=== PATIENT | male | born 1935 | race Caucasian/White ===

== ENCOUNTER 2021-05-28 10:57 | Emergency (ER) | payer MEDICARE, MEDICAID, SELFPAY ==
[2021-05-28 11:12] VITALS: BP 163/55; PULSE 55; RESP 16; TEMP 37.1; O2SAT 98; BMI 25.8
--- NOTE | 2021-05-28 11:25 | ED_ITS ---
HPI - Male Genitourinary General Chief complaint: Urogenital-Male Stated complaint: urinary issue Time Seen by Provider: 05/28/21 11:25 Source: patient Mode of arrival: ambulatory Limitations: no limitations History of Present Illness HPI Narrative: Patient history of enlarged prostate and history of any tension few years ago comes here for decreased urine output, dribbling of urine for last 3 -4 days. No fever no chills no vomiting no abdominal pain no blood in the urine. Bladder scan when he arrived showed 741 cc of urine in bladder Related Data Previous Rx's Medication Instructions Recorded tamsulosin 0.4 mg capsule (Flomax) 0.4 mg PO BEDTIME #30 cap 05/28/21 Allergies Allergy/AdvReac Type Severity Reaction Status Date / Time No Known Allergies Allergy Verified 05/28/21 11:17 Review of Systems Review of Systems: Yes all other systems are reviewed and are negative [facility] Past Medical History Medical History Hypertension Social History Social History Advance Directives: No Advance Directives Information Provided: No Physical Exam Vital Signs: Vital Signs: Last Vital Signs Temp 98.7 F 05/28/21 11:32 Pulse 53 05/28/21 11:32 Resp 15 05/28/21 11:32 BP 160/54 H 05/28/21 11:32 Pulse Ox 96 05/28/21 11:32 Body Mass Index 25.8 Appearance: Alert. Oriented X3. No acute distress. ENT: Pharynx normal. Oral Mucosa moist Neck: Normal inspection. Neck supple. CVS: Normal heart rate and rhythm. Pulses normal. Respiratory: No respiratory distress. Equal air entry bilateral, no wheezing/rales/rhonchi Abdomen: Soft and nontender. Bowel sounds are present, bladder distended no CVA tenderness Skin: Skin warm and dry. Normal skin color. Normal skin turgor. Extremities: Bilateral AKA Neuro: Oriented X 3. No motor deficit. MDM - Male Genitourinary MDM Narrative Medical decision making narrative: Patient's T of BPH retaining urine bladder scan showed 741 cc of urine Downs catheter was placed UA negative for UTI will discharge patient home with indwelling Downs catheter Lab Data Attestation: I reviewed the patient's lab results. Labs: Lab Results 05/28/21 Range/Units 12:01 Urine Color YELLOW Urine Appearance CLEAR Urine pH 6.0 (5.0-8.0) Ur Specific [place] 1.020 (1.005-1.025) Urine Protein NEG (NEG-TRACE) MG/DL Urine Glucose (UA) NEG (NEG) MG/DL Urine Ketones NEG (NEG) MG/DL Urine Blood NEG (NEG) Urine Nitrite NEG (NEG) Ur Leukocyte Esterase NEG (NEG) Discharge Plan Discharge Clinical Impression: Acute retention of urine Patient Disposition: Home, Self-Care Instructions: Downs Catheter Placement and Care (ED) Additional Instructions: Care of Downs catheter. Follow-up with urologist Meds as advised for enlarged prostate and Prescriptions: New tamsulosin [Flomax] 0.4 mg capsule 0.4 mg PO BEDTIME Qty: 30 RF: 0 Referrals: Allan Archer MD [Physician] - 1 week Print Language: Slovenian
[2021-05-28 11:32] VITALS: BP 160/54; PULSE 53; RESP 15; TEMP 37.1; O2SAT 96
[2021-05-28 12:14] LABS: Glucose Urine UA NEG (NEG); Leukocyte Esterase Urine NEG (NEG); Nitrite Urine NEG (NEG); Urine Blood NEG (NEG); Urine Ketones NEG (NEG); Urine Protein NEG (NEG-TRACE)
[2021-05-28 12:15] LABS: Appearance Urine CLEAR; Color Urine YELLOW
[2021-05-28] MEDS: Tamsulosin HCL 0.4 MG CAPSULE PO (13:26)
== END 2021-05-28 14:19 | disposition home or self-care (01) ==
PROVIDERS: Emergency Provider Internal Medicine
DX: R33.9 Retention of urine, unspecified (principal); I10 Essential (primary) hypertension
CPT/HCPCS: 51702; 51798; 81003; 99284

== ENCOUNTER → 2021-06-15 09:33 | Outpatient (BNVA) | payer MEDICARE, SELFPAY | PROVIDERS: Visit Provider Urology | DX: Z46.6 Encounter for fitting and adjustment of urinary device (principal); N32.0 Bladder-neck obstruction; R33.9 Retention of urine, unspecified | CPT/HCPCS: 51700; 51701; 51702; 99202 ==

== ENCOUNTER → 2021-07-22 09:41 | Outpatient (BNVA) | payer MEDICARE, SELFPAY | PROVIDERS: Visit Provider Urology | DX: N31.9 Neuromuscular dysfunction of bladder, unspecified (principal) | CPT/HCPCS: 51701; 52000; 99212 ==

== ENCOUNTER → 2021-09-19 08:08 | Day surgery (SDC) | payer MEDICARE, MEDICAID, SELFPAY ==
--- NOTE | 2021-09-16 12:10 | P.CONAN_ITS ---
Documented by User: Christy Ramirez NP 09/16/21 12:12 HPI - Anesthesia Eval Consult details Narrative: 86yo M for Insertion Suprapubic Tube s/p bilat BKA PMFSH Active Problems Active Problems: All Active Problems (Updated 09/13/21 @ 11:10 by Rosina Castillo RN) Urinary retention with incomplete bladder emptying (Acute) Bladder outlet obstruction (Acute) Neurogenic urinary bladder disorder (Acute) Past Medical History Medical History (Updated 09/13/21 @ 11:10 by Rosina Castillo RN) BPH (benign prostatic hyperplasia) COVID-19 vaccine series completed Depression GERD (gastroesophageal reflux disease) Hypertension Peripheral vascular disease Urinary retention Surgical History Surgical History (Updated 09/13/21 @ 11:04 by Rosina Castillo RN) H/O colonoscopy History of below-knee amputation of both lower extremities History of bladder surgery Social History Social History Housing Other:: 2 family home-son & DIL 2nd floor Are you a primary rn palliative care to a significant other at home: No Do you presently have visiting nurse or other home services: No Patient Tobacco Use Status: Never used Tobacco Substance Use Type Other:: advised to hold pre-op Substance Use Frequency: Occasionally Have you been hit, kicked, punched, or otherwise hurt by someone within the past year? If so, by whom?: No Are you DNR?: No Advance Directives Information Provided: Yes (informational brochure mailed) Advance Directives on File: No Recently lost weight without trying: No Eating poorly because of decreased appetite: No Nutrition Risks: Surgical patient >75years Poor oral hygiene: No Meds Allergies Allergy/AdvReac Type Severity Reaction Status Date / Time No Known Allergies Allergy Verified 07/22/21 10:12 Home Medications Medication Instructions Recorded Confirmed Last Taken Type amlodipine 5 mg tablet 5 mg PO QPM 09/13/21 09/13/21 Unknown History atorvastatin 40 mg tablet 40 mg PO QPM 09/13/21 09/13/21 Unknown History dexlansoprazole 60 mg 60 mg PO QPM 09/13/21 09/13/21 Unknown History capsule,biphase delayed release (Dexilant) finasteride 5 mg tablet 5 mg PO QPM 09/13/21 09/13/21 Unknown History gabapentin 100 mg tablet 100 mg PO TID 09/13/21 09/13/21 Unknown History tamsulosin 0.4 mg capsule (Flomax) 0.4 mg PO QPM 09/13/21 09/13/21 Unknown History Exam Exam Date and Time: September 16, 2021 1210 Height,Weight and Vital Signs: Weight 77.111 kg Assessment and Plan Assessment Anesthesia Assessment: Chart Reviewed Documented by User: Bob Batista 09/19/21 08:52 [facility] Past Medical History Medical History (Updated 09/13/21 @ 11:10 by Rosina Castillo RN) BPH (benign prostatic hyperplasia) COVID-19 vaccine series completed Depression GERD (gastroesophageal reflux disease) Hypertension Peripheral vascular disease Urinary retention Functional capacity: wheelchair bound Family History Family history of problems with anesthesia: No Surgical History Surgical History (Updated 09/13/21 @ 11:04 by Rosina Castillo RN) H/O colonoscopy History of below-knee amputation of both lower extremities History of bladder surgery History of Problems with Anesthesia: No Social History Social History Housing Other:: 2 family home-son & DIL 2nd floor Are you a primary rn palliative care to a significant other at home: No Do you presently have visiting nurse or other home services: No Patient Tobacco Use Status: Never used Tobacco Substance Use Type Other:: advised to hold pre-op Substance Use Frequency: Occasionally Have you been hit, kicked, punched, or otherwise hurt by someone within the past year? If so, by whom?: No Are you DNR?: No Advance Directives Information Provided: Yes (informational brochure mailed) Advance Directives on File: No Recently lost weight without trying: No Eating poorly because of decreased appetite: No Nutrition Risks: Surgical patient >75years Poor oral hygiene: No Meds Allergies Allergy/AdvReac Type Severity Reaction Status Date / Time No Known Allergies Allergy Verified 07/22/21 10:12 Home Medications Medication Instructions Recorded Confirmed Last Taken Type amlodipine 5 mg tablet 5 mg PO QPM 09/13/21 09/13/21 Unknown History atorvastatin 40 mg tablet 40 mg PO QPM 09/13/21 09/13/21 Unknown History dexlansoprazole 60 mg 60 mg PO QPM 09/13/21 09/13/21 Unknown History capsule,biphase delayed release (Dexilant) finasteride 5 mg tablet 5 mg PO QPM 09/13/21 09/13/21 Unknown History gabapentin 100 mg tablet 100 mg PO TID 09/13/21 09/13/21 Unknown History tamsulosin 0.4 mg capsule (Flomax) 0.4 mg PO QPM 09/13/21 09/13/21 Unknown History Exam Airway Mallampati Class: II TM Dist: >3cm Neck ROM: Full Denture: Upper and Lower Loose/Missing/Broken Teeth: Yes Heart: rrr Lungs: bl breath sounds Assessment and Plan Assessment Anesthesia Assessment: Anesthesia Plan Discussed Final Anesthetic Review Family History of Problems with Anesthesia: No History of Problems with Anesthesia: No NPO: Yes ASA Class: III Final Preanesthetic Review: Consent Obtained/Reviewed Patient Risk: Intermediate Procedure Risk: Intermediate Anesthetic Plan Anesthetic Plan: GA Disposition: Standard PACU
--- NOTE | 2021-09-19 | ECG_ITS ---
Test Reason : pre op Blood Pressure : / mmHG Vent. Rate : 067 BPM Atrial Rate : 067 BPM P-R Int : 154 ms QRS Dur : 080 ms QT Int : 426 ms P-R-T Axes : 027 037 073 degrees QTc Int : 450 ms Normal sinus rhythm Nonspecific T wave abnormality Abnormal ECG No previous ECGs available Referred By: Christy Ramirez Electronically Signed By:MIRTHA ROSARIO MD
[2021-09-19 08:53] VITALS: BP 156/52; PULSE 68; RESP 15; TEMP 36.4; O2SAT 97; BMI 39.0
[2021-09-19 09:01] LABS: Hematocrit 42.8 % (42.0-52.0); Hemoglobin 14.3 g/dl (14.0-18.0); Mean Corpuscular HGB Conc 33.4 g/dl (31.0-36.0); Mean Corpuscular Hemoglobin 31.8 pg (27.0-33.0); Mean Corpuscular Volume 95.1 fL (80.0-98.0); Mean Platelet Volume 8.7 fL (9.4-12.4); Platelet Count 278 X10*3/uL (160-400); Red Cell Distribution Width 13.7 % (11.0-16.0); White Blood Count 10.5 X10*3/uL (4.8-10.8)
[2021-09-19 09:16] LABS: Anion Gap 12 (12-20); Blood Urea Nitrogen 17 mg/dL (9-16); Calcium 9.3 mg/dL (8.4-10.2); Carbon Dioxide 25 mmol/L (22-29); Chloride 107 mmol/L (96-108); Estimated Glomerular Filt Rate 57; Glucose Fasting 92 mg/dL (60-99); Sodium 140 mmol/L (135-145)
--- NOTE | 2021-09-19 09:19 | MHC.SHP ---
Pre-Procedural Eval Section A Date of Service: 09/19/21 The patient is an INPATIENT: No The History & Physical has been completed within 30 days and I have reviewed it.: No Section B Chief Complaint: dysfunction of bladder Details of Present Illness: neurogenic bladder, recurring UTI. Plan for suprapubic tube placement Relevant Family History (Specify if Yes): No Relevant Social History: Other (specify) Present Medications: see Short Stay Collaborative assessment Medical History: Significant History History of Previous Operations: Relevant previous surgery/procedure and date(s) ( bladder diverticulum procedure at [facility] number of years ago) Allergies: Allergies Allergy/AdvReac Type Severity Reaction Status Date / Time No Known Allergies Allergy Verified 07/22/21 10:12 Review of Systems Sugical H&P ROS: Negative: Constitution, Cardiovascular, Respiratory, Neurological, Psychiatric, Hem-Onc, Allergic/Immunologic, Gastrointestinal, Genitourinary, Musculoskeletal, Integumentary, Endocrine and Eyes/Ears/Nose/Throat Exam Surgical H&P Exam: Normal: HEENT, Normal: Heart, Normal: Lungs, Normal: Extremities, Normal: Abdomen, Normal: Skin and Normal: Neurological Plan Diagnosis/Plan: Unchanged ( cystoscopy, suprapubic tube placement under anesthesia) I have reviewed the history and physical and performed a pertinent physical examination on my patient. No changes have occurred unless specified.
[2021-09-19 10:17] VITALS: BP 159/61; PULSE 63; RESP 14; TEMP 36.2; O2SAT 100
[2021-09-19 10:22] VITALS: BP 151/61; PULSE 62; RESP 16; O2SAT 100
--- NOTE | 2021-09-19 10:23 | W.PM.OPN ---
Operative Note Operative Note Date of Service: 09/19/21 Narrative: PreOperative Diagnosis:?neurogenic bladder Post Operative Diagnosis:?neurogenic bladder Procedure:? 1. Cystoscopy 2. Suprapubic tube placement Surgeon: Dr Allan Archer Anesthesia:?Sedation plus local Indications for procedure: wheelchair-bound due to bilateral BKA. Has had indwelling Devlin catheter. Prior procedure for diverticular bladder removal. Has been experiencing pain with spasm and from his penis. Purpose of Procedure: After informed consent was verified the patient was brought to the operating room and placed in a supine position.? Anesthesia was administered per protocol. The patient was placed in a modified dorsal lithotomy position and prepped and draped in a sterile fashion. A safety pause was performed confirming patient identity, procedure and antibiotics. A 22 Macedonian cystoscope was inserted per urethra. Bladder was examined in its entirety. No abnormalities seen. Air bubble was located at the dome of the bladder. A finder needle was inserted 2 fingerbreaths above the symphysis pubis on the abdomen into the bladder.? The needle was visualized in the bladder via cystoscopy. Local anesthetic was infiltrated subcutaneously around the needle introduction site. A small, 1cm horizontal incision was made.? A trocar introducer was advanced through the abdominal wall into the bladder under visualization. The obturator was removed and a 1 [id number] is to shift Fol Fr devlin catheter placed. 7cc was used to inflate the balloon. The external portion of the trocar was removed. Dressing was placed, the bladder was emptied, and a drainage bag was attached. The patient tolerated the procedure and was transferred in stable condition to the recovery area. Suprapubic tube will be changed in 1 month with a follow-up office visit.
[2021-09-19 10:27] VITALS: BP 172/74; PULSE 63; RESP 18; O2SAT 98
[2021-09-19 10:32] VITALS: BP 175/79; PULSE 60; RESP 18; O2SAT 98
[2021-09-19 10:45] VITALS: BP 175/83; PULSE 61; RESP 18; TEMP 36.2; O2SAT 98
== END | disposition home or self-care (01) ==
PROVIDERS: Nurse Practitioner; PCP Nurse Practitioner Family; Visit Provider Urology
PROC: (CPT 51102; principal; 2021-09-19 09:30)
DX: N31.9 Neuromuscular dysfunction of bladder, unspecified (principal); N39.0 Urinary tract infection, site not specified; R33.9 Retention of urine, unspecified; Z89.512 Acquired absence of left leg below knee; I10 Essential (primary) hypertension; Z89.511 Acquired absence of right leg below knee
CPT/HCPCS: 51102; 36415; 80048; 85027; 93005; J0690

== ENCOUNTER → 2021-10-20 09:30 | Outpatient (BNVA) | payer MEDICARE, MEDICAID, SELFPAY | PROVIDERS: PCP Nurse Practitioner Family; Visit Provider Surgery Vascular Surgery | DX: N31.9 Neuromuscular dysfunction of bladder, unspecified (principal); E08.40 Diabetes mellitus due to underlying condition with diabetic neuropathy, unspecified | CPT/HCPCS: 51705; 99202; 99212 ==

== ENCOUNTER 2021-11-02 09:20 | Outpatient (REF) | payer MEDICARE, MEDICAID, SELFPAY ==
[2021-11-02 10:20] LABS: Estimated Average Glucose 100 mg/dL; Hemoglobin A1c % 5.1 %
[2021-11-02 10:32] LABS: Blood Urea Nitrogen 19 mg/dL (9-16); Cholesterol 153 mg/dL; Estimated Glomerular Filt Rate 53; HDL Cholesterol 32 mg/dL; LDL Cholesterol Calculated 95 mg/dl; Triglycerides 133 mg/dL
== END 2021-11-02 09:21 | disposition home or self-care (01) ==
LOC: HO.LAB 09:20
PROVIDERS: Nurse Practitioner Family; PCP Internal Medicine; Visit Provider Surgery Vascular Surgery
DX: E78.00 Pure hypercholesterolemia, unspecified (principal); M25.562 Pain in left knee; M25.561 Pain in right knee; E08.40 Diabetes mellitus due to underlying condition with diabetic neuropathy, unspecified; I73.9 Peripheral vascular disease, unspecified; G54.6 Phantom limb syndrome with pain; Z13.1 Encounter for screening for diabetes mellitus; Z79.899 Other long term (current) drug therapy; Z89.511 Acquired absence of right leg below knee; Z89.512 Acquired absence of left leg below knee
CPT/HCPCS: 36415; 80061; 82565; 83036; 84520; 99202

== ENCOUNTER 2021-11-03 11:06 | Outpatient (REF) | payer MEDICARE, MEDICAID, SELFPAY ==
--- NOTE | ~2021-11-03 | CT_ITS ---
EXAMINATION: CTA ABDOMEN, PELVIS AND LOWER EXTREMITY RUNOFF WITH CONTRAST CLINICAL INFORMATION: Peripheral vascular disease. Bilateral BKA. COMPARISON: CT abdomen and pelvis 06/14/2019. TECHNIQUE: Routine abdominal aorta and lower extremity runoff CTA protocol with contrast was performed. 100 mL of Omnipaque 350 was administered. 3D POSTPROCESSING: Multiple 3-D angiographic images were processed from the initial data set by the [facility] under concurrent physician supervision. DOSE LOWERING TECHNIQUES: This CT examination was performed using dose optimization techniques as appropriate, variously including the following: Automated exposure control. Adjustment of mA and/or kV according to patient size (this includes techniques or standardized protocols for targeted exams where dose is matched to indication/reason for exam; i.e. extremities or head). Use of iterative reconstruction technique. DLP: 492 mGy-cm FINDINGS: VASCULAR: ABDOMINAL AORTA: Atherosclerotic disease throughout its extent. Infrarenal abdominal aortic aneurysm measures 3.9 x 3.4 cm, previously 3.7 x 3.2 cm. Mural thrombus within the aneurysm sac with shallow ulceration. No evidence of dissection or flow-limiting stenosis. RIGHT LOWER EXTREMITY: Common Iliac Artery: Minimal atherosclerotic plaque without evidence of aneurysm, dissection or flow-limiting stenosis.. Internal Iliac Artery: Minimal atherosclerotic plaque without evidence of aneurysm, dissection or flow-limiting stenosis.. External Iliac Artery: Patent and unremarkable. Common Femoral Artery: Minimal atherosclerotic plaque without evidence of aneurysm, dissection or flow-limiting stenosis. Rosales mortise anatomy. Profunda Femoral Artery: [id number] atherosclerotic disease without evidence of aneurysm, dissection or flow-limiting stenosis. This artery provides most of the flow to the remainder of the right lower extremity. Superficial Femoral Artery: Severely atherosclerotic with multifocal areas of high-grade stenosis and occlusion. Popliteal Artery: Occluded. Posterior Tibial Artery (partial): Occluded. Peroneal Artery (partial): Occluded. Anterior Tibial Artery (partial): Occluded. LEFT LOWER EXTREMITY: Common Iliac Artery: Minimal atherosclerotic plaque without evidence of aneurysm, dissection or flow-limiting stenosis. Internal Iliac Artery: Moderate atherosclerotic disease without evidence of aneurysm, dissection or flow-limiting stenosis. External Iliac Artery: Patent and unremarkable. Common Femoral Artery: [id number] atherosclerotic plaque without evidence of aneurysm, dissection or flow-limiting stenosis. Rosales mortise anatomy. Profunda Femoral Artery: Severe atherosclerotic disease without evidence of aneurysm, dissection or flow-limiting stenosis. This artery provides most of the flow to the remainder of the left lower extremity. Superficial Femoral Artery: Occluded. Popliteal Artery: Occluded. Posterior Tibial Artery (partial): Occluded. Peroneal Artery (partial): Occluded. Anterior Tibial Artery (partial): Occluded. CELIOMESENTERIC ARTERIES: Moderate stenosis at the origin of the celiac artery which maintains distal contrast opacification of its branch vessels. The right hepatic artery is replaced off the superior mesenteric artery. The superior mesenteric artery main trunk is widely patent. The more distal trunk is atherosclerotic but patent and distal branches maintain contrast opacification. There is a focal high-grade stenosis at the final branch of the superior mesenteric artery giving rise to left lower quadrant small bowel loops. The inferior mesenteric artery is patent. RENAL ARTERIES: Single renal arteries bilaterally are patent but with atherosclerotic disease. Symmetric nephrograms and symmetric renal size. NONVASCULAR: Lung Bases: No acute findings. Liver, Gallbladder and Biliary Tree: The liver is normal in size, shape, and attenuation. No focal hepatic lesion or biliary ductal dilatation is present. The gallbladder is unremarkable with no evidence of radiopaque gallstones, gallbladder wall thickening, or obvious pericholecystic inflammatory changes. Pancreas: Unremarkable. Spleen: Unremarkable. Adrenal Glands: Unremarkable. Kidneys and Ureters: Symmetrically thinned renal cortices with lobulation. No hydronephrosis or perinephric stranding bilaterally. Ureters are normal in course and caliber bilaterally. Bladder: Decompressed with suprapubic tube and not well assessed otherwise. Gastrointestinal Tract: Diverticulosis without CT evidence of diverticulitis. The appendix is unremarkable. No evidence of bowel obstruction. Abdominal Wall: No significant hernia is appreciated. Lymph Nodes: Normal. Pelvic Viscera: Unremarkable. Osseous Structures: Bilateral [id number] amputations. Diffusely decreased bone mineral density. CT/CT angio abd aorta runoff IMPRESSION: 1. 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 The majority of flow to the remainder of the lower extremities arises from the profunda artery and circumflex arteries. Complete occlusion of the popliteal arteries and remaining portions of the runoff vessels. 2. Infrarenal abdominal aortic aneurysm measures 3.9 x 3.4 cm, previously 3.7 x 3.2 cm. 3. Other chronic and non-acute findings as above.
[2021-11-03] MEDS: iohexoL 350 MG/ML 100 ML INFUS..BTL IV (13:10)
== END 2021-11-03 11:07 | disposition home or self-care (01) ==
LOC: HO.CT 11:06
PROVIDERS: Visit Provider Surgery Vascular Surgery
DX: I73.9 Peripheral vascular disease, unspecified (principal)
CPT/HCPCS: 75635; Q9967

== ENCOUNTER → 2021-11-10 09:08 | Outpatient (BNVA) | payer MEDICARE, MEDICAID, SELFPAY | PROVIDERS: PCP Nurse Practitioner Family; Visit Provider Surgery Vascular Surgery | DX: Z13.89 Encounter for screening for other disorder (principal) | CPT/HCPCS: Q3014 ==

== ENCOUNTER → 2021-12-28 09:15 | Outpatient (BNVA) | payer MEDICARE, MEDICAID, SELFPAY | PROVIDERS: PCP Nurse Practitioner Family; Referring Provider Nurse Practitioner Family; Visit Provider Internal Medicine | DX: I25.10 Atherosclerotic heart disease of native coronary artery without angina pectoris (principal) | CPT/HCPCS: 99202 ==

== ENCOUNTER → 2022-03-09 12:46 | Outpatient (BNVA) | payer MEDICARE, MEDICAID, SELFPAY | PROVIDERS: PCP Nurse Practitioner Family; Referring Provider Internal Medicine; Visit Provider Internal Medicine | DX: I25.10 Atherosclerotic heart disease of native coronary artery without angina pectoris (principal); I48.0 Paroxysmal atrial fibrillation; Z79.01 Long term (current) use of anticoagulants; Z79.82 Long term (current) use of aspirin; Z79.899 Other long term (current) drug therapy | CPT/HCPCS: 93005; 99212 ==

== ENCOUNTER → 2022-04-25 09:51 | Outpatient (BNVA) | payer MEDICARE, MEDICAID, SELFPAY | PROVIDERS: PCP Nurse Practitioner Family; Visit Provider Surgery Vascular Surgery | DX: I73.9 Peripheral vascular disease, unspecified (principal); I25.2 Old myocardial infarction; Z89.512 Acquired absence of left leg below knee; Z89.511 Acquired absence of right leg below knee | CPT/HCPCS: 99212 ==

== ENCOUNTER 2022-07-13 14:02 | Inpatient (IN) | payer MEDICARE, MEDICAID, SELFPAY ==
--- NOTE | 2022-07-12 14:26 | ECG_ITS ---
Test Reason : Chest Pain Blood Pressure : / mmHG Vent. Rate : 138 BPM Atrial Rate : 276 BPM P-R Int : 000 ms QRS Dur : 074 ms QT Int : 288 ms P-R-T Axes : 000 036 107 degrees QTc Int : 436 ms Supraventricular tachycardia Nonspecific T wave abnormality Abnormal ECG When compared with ECG of 13-JUL-2022 14:12, T wave inversion more evident in Anterior leads Referred By: Zev Milner Electronically Signed By:ZEV MANZANO
[2022-07-13] VITALS (8 sets, daily range): BP systolic 118–152; BP diastolic 55–96; PULSE 62–141; RESP 15–22; TEMP 35.9–36.9; O2SAT 94–99; BMI 29.7
--- NOTE | ~2022-07-13 | XR_ITS ---
EXAMINATION: XR CHEST CLINICAL INFORMATION: Chest pain COMPARISON: None TECHNIQUE: Frontal view of the chest was obtained. FINDINGS: Rotated study. The lungs are well expanded. No consolidation or edema. There may be small pleural effusions bilaterally.. No pneumothorax. The cardiomediastinal silhouette is within normal limits. No acute osseous abnormality. XR/XR chest 1V IMPRESSION: There may be small bilateral pleural effusions. No consolidation.
--- NOTE | 2022-07-13 14:08 | ECG_ITS ---
Test Reason : afib Blood Pressure : / mmHG Vent. Rate : 140 BPM Atrial Rate : 000 BPM P-R Int : 000 ms QRS Dur : 078 ms QT Int : 282 ms P-R-T Axes : 000 038 066 degrees QTc Int : 430 ms Supraventricular tachycardia Nonspecific ST and T wave abnormality Abnormal ECG When compared with ECG of 19-SEP-2021 09:04, Supraventricular tachycardia has replaced Sinus rhythm Referred By: Generic ED Physician Electronically Signed By:SUYAPA MANZANO
--- NOTE | 2022-07-13 14:42 | ED.CHESTPAIN ---
HPI - Chest Pain General Chief Complaint: Chest Pain Stated Complaint: Rapid Afib Time Seen by Provider: 07/13/22 14:38 Source: patient, family, RN notes reviewed and old records reviewed Mode of arrival: ambulatory History of Present Illness HPI narrative: 87-year-old male with a past medical history of hypertension, peripheral vascular disease, bilateral below-knee amputations, atrial flutter and atrial fibrillation presents to the emergency department today from his resource conservationist's office with a rapid heartbeat. Patient's daughter, who provides translation services, states that over the last several days, he has had gradual onset of continuous nausea, weakness, intermittent chest pain and intermittent shortness of breath. The patient denies those symptoms at current time. MD complaint: chest pain ( not currently) Pertinent past history: coronary artery disease Onset (ago): day(s) Timing of current episode: episodic Prior episodes: Yes Onset: during rest Pain location: substernal Pain radiation: none Severity: mild Quality: tightness Exacerbating factors: nothing Associated symptoms: nausea, dyspnea and palpitations Treatment prior to arrival: none Risk Factors Coronary artery disease risk factors: hypertension Related Data Home Medications Medication Instructions Recorded Confirmed aspirin 81 mg tablet,delayed 81 mg PO DAILY 03/09/22 07/13/22 release docusate sodium 100 mg capsule 100 mg PO DAILY PRN 05/29/22 07/13/22 Previous Rx's Medication Instructions Recorded amlodipine 5 mg tablet 5 mg PO QPM #90 tabs 09/27/21 atorvastatin 40 mg tablet 40 mg PO QPM #90 tabs 09/27/21 dexlansoprazole 60 mg 60 mg PO QPM #90 caps 09/27/21 capsule,biphase delayed release (Dexilant) gabapentin 100 mg capsule 300 mg PO BEDTIME 90 days #270 caps 09/27/21 docusate sodium 50 mg/5 mL oral 10 mg otic (ears) DAILY #5 mL 10/03/21 liquid drainage bag 2,000 mL (Kenguard #1 ea 10/20/21 Urinary Drain Bag) miscellaneous medical supply 1 ea miscellaneous DAILY #1 ea 01/24/22 apixaban 5 mg tablet (Eliquis) 5 mg PO BID #180 tabs 03/09/22 metoprolol succinate 25 mg 25 mg PO DAILY #90 tabs 03/09/22 tablet,extended release 24 hr (Toprol XL) polyethylene glycol 3350 17 gram 17 g PO DAILY PRN constipation #30 03/21/22 oral powder packet (Miralax) [facility] bed #1 05/05/22 Allergies Allergy/AdvReac Type Severity Reaction Status Date / Time No Known Allergies Allergy Verified 07/13/22 13:34 Review of Systems Constitutional: Constitutional: Denies chills, Denies excessive sweating, Denies fever(s) and Denies headache(s) Eyes: Eyes: Denies loss of vision and Denies other visual disturbances ENT: Denies dizziness and Denies headache(s) Cardiovascular: Cardiovascular: Reports chest pain, Reports chest pain at rest, Reports rapid heart rate, Denies Loss of Consciousness and Reports dyspnea Respiratory: Respiratory: Reports no additional respiratory complaints and Reports dyspnea Gastrointestinal: Gastrointestinal: Denies diarrhea, Reports nausea and Denies vomiting Genitourinary: Genitourinary: Reports no additional male genitourinary complaints Musculoskeletal: Musculoskeletal: Denies joint swelling and Denies tingling Integumentary/Breasts: Skin/Breast: Denies rash and Reports wounds Comments: 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 Source: nursing notes reviewed Medical History Atherosclerotic cardiovascular disease BPH (benign prostatic hyperplasia) COVID-19 vaccine series completed Depression GERD (gastroesophageal reflux disease) Hypertension Peripheral vascular disease Urinary retention Surgical History H/O colonoscopy History of below-knee amputation of both lower extremities History of bladder surgery Family History Family History Father No problems noted. Mother No problems noted. Social History Social History Housing: House Housing Other:: 2 family home-son & DIL 2nd floor Are you a primary long term acute care registered nurse to a significant other at home: No Do you presently have visiting nurse or other home services: No Alcohol intake: never Patient Tobacco Use Status: Never used Tobacco e-Cigarette/Vaping Use: Never Used Second Hand Smoke Exposure: No Use of substances other than those prescribed or required for medical reasons: No Advance Directives: No Advance Directives Information Provided: No service: No Current occupational status: disabled Cognitive needs: No Hearing needs: Yes Vision needs: Yes Physical Exam Vital Signs: Vital Signs: Last Vital Signs Temp 98.0 F 07/13/22 16:45 Pulse 92 07/13/22 16:45 Resp 15 07/13/22 16:45 BP 127/60 07/13/22 16:45 Pulse Ox 99 07/13/22 16:45 O2 Del Method Nasal Cannula 07/13/22 16:45 BMI result Body Mass Index 29.7 Const: General: cooperative, comfortable and no acute distress Nutritional Appearance: not obese Orientation/consciousness: patient oriented x3 Limitations: physical limitations HEENT: Head: Yes normal to inspection, Yes normocephalic and Yes atraumatic Ears: hearing grossly normal bilaterally General nose exam: Normal external nose present Face and sinus: Yes normal facial exam Eyes: General: appearance normal, both eyes and all related structures Eyelids: Yes eyelids normal Conjunctivae: conjunctivae normal Sclerae: sclerae normal Pupils: Equal, round and reactive pupils present Neck: Neck: Yes full ROM, Yes no meningeal signs and No tracheostomy present Chest: Chest palpation & inspection: normal inspection of the chest, no crepitus and no localized rib tenderness Resp: Effort & Inspection: normal respiratory effort, normal respiratory pattern, no cough, not labored and no respiratory distress Auscultation: clear to auscultation bilaterally Cardio: Jugular venous distension: no JVD Rate: tachycardic Rhythm: regular rhythm Heart sounds: no murmurs GI: Inspection: Yes normal to inspection Percussion: Yes normal to percussion : General: Yes no CVA tenderness Back/Spine/Pelvis: Back: no CVA tenderness Skin: General skin exam: no rashes or lesions noted and no jaundice Neuro: General: patient oriented x3, no meningeal signs and Unable to assess gait Cranial nerves: Yes CN's II-XII intact bilaterally, Yes Equal, round and reactive pupils present and Yes Bilaterally intact EOM present Speech: No Abnormal speech present Gait exam (Neuro): Unable to assess gait Extrem: Right lower extremity: abnormal to inspection ( bilateral below-knee amputations) Psych: Appearance: grossly normal Mental Status: mental status grossly normal Course Course Course Narrative: The patient arrived in atrial flutter with rapid ventricular response. He was given Cardizem IV 20 mg with resultant decrease in heart rate to 70. Repeat EKG as documented. Additionally, the patient was started on IV normal saline as the patient has not been eating or drinking a significant amount over the last several days per family. Because of the fact that the patient is still in atrial flutter, he will be started on IV Cardizem drip has most likely his heart rate will increase without additional treatment. Reevaluation(s) Reevaluation #1: Heart rate 70 Time: 15:44 MDM - Chest Pain MDM Narrative Medical decision making narrative: patient seen initially for rapid atrial flutter. Received IV Cardizem bolus as well as drip. the patient's heart rate improved to 70s although still in atrial flutter.Patient's troponin came back elevated at 45. The patient will be admitted for additional management. The case was discussed with Dr. Red, the admitting hospitalist as well as Dr. Jesus, the patient's resource conservationist who had evaluated the patient earlier in the day in his office. Differential Diagnosis Differential diagnosis: Likely unstable angina pectoris and chest pain Differential diagnosis: atrial fibrillation /atrial flutter, SVT Medical Records Data Attestation: I reviewed the patient's medical records. Medical records narrative: Patient noted to have previous BKA bilaterally at [facility]. Lab Data Attestation: I reviewed the patient's lab results. Result diagrams: 07/13/22 15:23 07/13/22 16:06 Labs: Lab Results 07/13/22 07/13/22 07/13/22 Range/Units 15:23 15:23 15:23 WBC 10.3 (4.8-10.8) X10*3/uL RBC 4.75 (4.60-5.80) X10*6/uL Hgb 14.7 (14.0-18.0) g/dl Hct 44.0 (42.0-52.0) % MCV 92.6 (80.0-98.0) fL MCH 30.9 (27.0-33.0) pg MCHC 33.4 (31.0-36.0) g/dl RDW 14.6 (11.0-16.0) % Plt Count 319 (160-400) X10*3/uL MPV 9.5 (9.4-12.4) fL Immature Gran % (Auto) 0.4 (0.0-0.4) % Neut % (Auto) 78.7 H (45-73) % Lymph % (Auto) 13.0 L (20-40) % [place] % (Auto) 6.5 (2-11) % Eos % (Auto) 0.4 (0-4) % Baso % (Auto) 1.0 (0-2) % Lymph # (Auto) 1.3 (1.2-4.9) X10*3/uL [place] # (Auto) 0.7 (0.1-1.2) X10*3/uL Eos # (Auto) 0.0 (0.0-0.4) X10*3/uL Baso # (Auto) 0.1 (0.0-0.2) X10*3/uL Abs Immat Gran (auto) 0.04 H (0.00-0.03) X10*3/uL Absolute Neuts (auto) 8.1 (2.0-8.3) x10*3/uL Absolute Nucleated RBC 0.000 (0.0-0.012) X10*3/uL Nucleated RBC % (auto) 0.0 (0.0-0.2) /100WBC Sodium (135-145) mmol/L Potassium (3.3-5.1) mmol/L Chloride (96-108) mmol/L Carbon Dioxide (22-29) mmol/L Anion Gap (12-20) BUN (9-16) mg/dL Creatinine (0.5-1.4) mg/dL Estim Creat Clear Calc Estimated GFR Random Glucose (60-115) mg/dL Calcium (8.4-10.2) mg/dL Magnesium (1.6-2.6) mg/dL Total Bilirubin (0.0-1.0) mg/dL Direct Bilirubin (0.0-0.5) mg/dL AST (5-37) U/L ALT (0-40) U/L Alkaline Phosphatase (39-117) U/L Troponin I High Sens 45.6 H (<3.5-35.0) ng/L Total Protein (6.5-8.0) g/dL Albumin (3.5-5.0) g/dL Lipase (8-78) U/L COVID-19 ([facility]) Negative (Negative) COVID-19 Clin Com See Note 07/13/22 Range/Units 16:06 WBC (4.8-10.8) X10*3/uL RBC (4.60-5.80) X10*6/uL Hgb (14.0-18.0) g/dl Hct (42.0-52.0) % MCV (80.0-98.0) fL MCH (27.0-33.0) pg MCHC (31.0-36.0) g/dl RDW (11.0-16.0) % Plt Count (160-400) X10*3/uL MPV (9.4-12.4) fL Immature Gran % (Auto) (0.0-0.4) % Neut % (Auto) (45-73) % Lymph % (Auto) (20-40) % [place] % (Auto) (2-11) % Eos % (Auto) (0-4) % Baso % (Auto) (0-2) % Lymph # (Auto) (1.2-4.9) X10*3/uL [place] # (Auto) (0.1-1.2) X10*3/uL Eos # (Auto) (0.0-0.4) X10*3/uL Baso # (Auto) (0.0-0.2) X10*3/uL Abs Immat Gran (auto) (0.00-0.03) X10*3/uL Absolute Neuts (auto) (2.0-8.3) x10*3/uL Absolute Nucleated RBC (0.0-0.012) X10*3/uL Nucleated RBC % (auto) (0.0-0.2) /100WBC Sodium 140 (135-145) mmol/L Potassium 4.6 (3.3-5.1) mmol/L Chloride 107 (96-108) mmol/L Carbon Dioxide 20 L (22-29) mmol/L Anion Gap 18 (12-20) BUN 18 H (9-16) mg/dL Creatinine 1.29 (0.5-1.4) mg/dL Estim Creat Clear Calc 43.8 Estimated GFR 53 Random Glucose 92 (60-115) mg/dL Calcium 8.7 D (8.4-10.2) mg/dL Magnesium 1.8 (1.6-2.6) mg/dL Total Bilirubin 0.9 (0.0-1.0) mg/dL Direct Bilirubin 0.4 (0.0-0.5) mg/dL AST 24 (5-37) U/L ALT 17 (0-40) U/L Alkaline Phosphatase 199 H (39-117) U/L Troponin I High Sens (<3.5-35.0) ng/L Total Protein 5.8 L (6.5-8.0) g/dL Albumin 3.2 L (3.5-5.0) g/dL Lipase 37 (8-78) U/L COVID-19 ([facility]) (Negative) COVID-19 Clin Com Imaging Data Chest x-ray: Attestation: I personally reviewed and interpreted this imaging study as follows: My impression: bilat pleural effusions. No pneumonia or pneumothorax Radiologist's impression: FINDINGS: Rotated study. The lungs are well expanded. No consolidation or edema. There may be small pleural effusions bilaterally.. No pneumothorax. The cardiomediastinal silhouette is within normal limits. No acute osseous abnormality ECG Data ECG #1: Attestation: I personally reviewed and interpreted this ECG as follows: ECG interpretation date: 07/13/22 ECG interpretation time: 14:45 Prior ECG tracings: available for review Interpretation: atrial flutter with 2-1 av conduction at a rate of 138. Normal QRS duration, no ST -T-wave changes. Normal axis. Normal QT. When compared to an EKG from September of 2021, the atrial flutter is new. ECG #2: Attestation: I personally reviewed and interpreted this ECG as follows: ECG interpretation date: 07/13/22 ECG interpretation time: 15:46 Prior ECG tracings: available for review Interpretation: Atrial flutter with variable conduction at a rate of 77. Nonspecific ST and T-wave changes. Normal QT, normal QRS duration. Normal axis. Compared to the EKG from earlier today, the patient is now rate controlled, but remains in atrial flutter. Scores Heart Score History: -1- moderately suspicious ECG: -1- non specific repolarization disturbance Age: -2- > or = 65 Risk factory: -2- 3 or more risk factors or treated atherosclerosis Troponin: -1- >1 - <3x normal limit Score: 7 Risk: 50.1% Critical Care Time Critical Care Time Critical Care Time: Yes Total Critical Care Time: 120 Attestation: The patient arrived to the ED with a critical illness, or critical findings necessitating immediate assessment. Cardiopulmonary monitoring was initiated due to the potential for rapid decompensation of the patient's clinical condition. During the course of the patient's stay, significant time was spent at the bedside performing serial re-evaluations of the patient's hemodynamic and clinical status because of the recognized potential threat to life or limb in this condition. The patient received IV Cardizem, 20 mg ( 0.25 milligrams/kilogram) , with resultant decrease in heart rate to 70. Repeat EKG was obtained , results as documented.. All of the available current laboratory and radiographic studies obtained were reviewed. Any available old records were reviewed, including records from primary care physicians and outside institutions. Additionally, ancillary information available including EMS records were reviewed. The case was discussed with the patient's family as well as the patient's resource conservationist. Sequential vital signs were obtained. Critical Care time of 120 minutes was performed exclusive of billable procedures Discharge Plan Discharge Clinical Impression: Atrial flutter with rapid ventricular response, History of below-knee amputation of both lower extremities, Hypertension, Chest pain Patient Disposition: Admitted As Inpatient
--- NOTE | 2022-07-13 15:00 | PC.NURSE ---
Pt is A/O X 4 respiration is even, non-labored. Speak in clear and full sentences. Pupils are PERRLA. Lung sound is clear, heart sound regular, no edema noted. Skin is pink, warm and dry. Abdomen is soft, non-tender, bowel sounds present. Moves all extremities, Pt is bilat under knee amputee, stamp is clean and dry, uses wheel chair to ambulate. Pt reported non radiating left chest pain and productive cough x 7days. Denies SOB, light headedness, dizziness. No nausea, no vomiting, no chills, no fever. Pt resting comfortably, bed at lowest position, call abraham within reach,pt and aware of plan of care. Systems Analyst at bedside.
[2022-07-13] MEDS: dilTIAZem HCL 50 MG/10 ML VIAL 20 MG IVPUSH (15:29)
[2022-07-13 15:31] LABS: MANUAL DIFF FLAG NO
[2022-07-13 15:32] LABS: Basophils Absolute Auto 0.1 X10*3/uL (0.0-0.2); Eosinophils Percent Auto 0.4 % (0-4); Hemoglobin 14.7 g/dl (14.0-18.0); Imm Gran Abs Auto 0.04 X10*3/uL (0.00-0.03); Imm Gran Pct Auto 0.4 % (0.0-0.4); Lymphocytes Absolute Auto 1.3 X10*3/uL (1.2-4.9); Mean Corpuscular HGB Conc 33.4 g/dl (31.0-36.0); Mean Corpuscular Hemoglobin 30.9 pg (27.0-33.0); Mean Corpuscular Volume 92.6 fL (80.0-98.0); Mean Platelet Volume 9.5 fL (9.4-12.4); Monocytes Absolute Auto 0.7 X10*3/uL (0.1-1.2); Monocytes Percent Auto 6.5 % (2-11); Neutrophils Absolute Auto 8.1 x10*3/uL (2.0-8.3); Neutrophils Percent Auto 78.7 % (45-73); Platelet Count 319 X10*3/uL (160-400); Red Blood Count 4.75 X10*6/uL (4.60-5.80); Red Cell Distribution Width 14.6 % (11.0-16.0); White Blood Count 10.3 X10*3/uL (4.8-10.8)
--- NOTE | 2022-07-13 15:42 | ECG_ITS ---
Test Reason : REPEAT Blood Pressure : / mmHG Vent. Rate : 077 BPM Atrial Rate : 000 BPM P-R Int : 000 ms QRS Dur : 078 ms QT Int : 376 ms P-R-T Axes : 000 034 115 degrees QTc Int : 425 ms Atrial fibrillation Nonspecific T wave abnormality Abnormal ECG When compared with ECG of 13-JUL-2022 14:57, Atrial fibrillation has replaced Atrial flutter Vent. rate has decreased BY 61 BPM Referred By: Zev Milner Electronically Signed By:ZEV MANZANO
[2022-07-13 15:46] LABS: COVID-19 Test Negative (Negative); IDNOW Serial# 16C4AD1C
[2022-07-13] MEDS: 0.9 % Sodium Chloride 1,000 ML 150 ML IVCONT (15:50)
[2022-07-13 15:58] LABS: Troponin-I High Sensitivity 45.6 ng/L (<3.5-35.0)
[2022-07-13 16:28] LABS: Alanine Aminotransferase 17 U/L (0-40); Albumin Level 3.2 g/dL (3.5-5.0); Alkaline Phosphatase 199 U/L (39-117); Anion Gap 18 (12-20); Aspartate Amino Transferase 24 U/L (5-37); Bilirubin Direct 0.4 mg/dL (0.0-0.5); Bilirubin Total 0.9 mg/dL (0.0-1.0); Blood Urea Nitrogen 18 mg/dL (9-16); Calcium 8.7 mg/dL (8.4-10.2); Carbon Dioxide 20 mmol/L (22-29); Chloride 107 mmol/L (96-108); Creatinine Clr Calc Pharmacy 43.8; Estimated Glomerular Filt Rate 53; Glucose Random 92 mg/dL (60-115); Lipase 37 U/L (8-78); Potassium 4.6 mmol/L (3.3-5.1); Sodium 140 mmol/L (135-145); Total Protein 5.8 g/dL (6.5-8.0)
[2022-07-13] MEDS: dilTIAZem HCL 125 MG in 0.9 % Sodium Chloride 100 ML 10 MG IVCONT (16:49)
[2022-07-13 17:17] LABS: Magnesium 1.8 mg/dL (1.6-2.6)
--- NOTE | 2022-07-13 17:35 | PC.NURSE ---
DR. VACA AND GERARD PURVIS (PA-C) AT BEDSIDE, PT/FAMILY AWARE OF PLAN OF CARE.
--- NOTE | 2022-07-13 18:23 | PM.IMHP ---
History of Present Illness Date of Service: 07/13/22 Attending physician on admission: Duc Red Chief Complaint: sob, lightheadedness, nausea 87 year old male with history of paroxysmal atrial fibrillation/flutter on eliquis, CAD, PAD s/p b/l BKA, HTN, HLD, CKD stage 3, chronic constipation, s/p urostomy d/t neurogenic bladder and bladder outlet obstruction, and depression/anxiety presented to the ED from Dr. Jesus office due to afib with RVR. He is here with his DIL Dorothea and . His DIL assists with welsh translation and history. She reports pt has had shortness of breath, lightheadedness, nausea, nonradiating nonexertional chest pain, pallor for the last 5 days. She reports he was diagnosed with atrial fibrillation about 9 months ago and is anticoagulated with Eliquis. He has been hospitalized twice since diagnosis at [facility] for AFib with RVR. States at last admission about 3-4 months ago was supposed to have been started on amiodarone but the prescription was never called into the pharmacy and therefore he never started the medication but has been compliant with his metoprolol. Last echocardiogram was from 02/2022 noting normal systolic function with preserved ejection fraction and grade 2 diastolic dysfunction. He continues following with Dr. Edin paige. On arrival to ED, patient tachycardic to 141, BP 152/91, mild tachypnea 22. Hematology studies within normal limits. Renal function and electrolytes stable. Troponin 45.6. CXR showing possible small bilateral pleural effusions. EKG showing atrial fibrillation rate 77 and nonspecific T-wave abnormality. To be admitted for afib with rvr. Given 20mg diltiazem push with limited effect and started on Cardizem drip. Also given 1 L normal saline. Review of Systems Review of Systems: General: No fevers, malaise, unintentional weight loss Cardiovascular: +chest pain. No palpitations, or leg edema Respiratory: +sob. No wheezing, cough GI: +nausea. No abdominal pain, vomiting, diarrhea, constipation, melena, hematochezia : +devlin. No hematuria Neuro: No headaches, weakness, paresthesias Skin: No rashes or lesions PMFSH Medical History Atherosclerotic cardiovascular disease BPH (benign prostatic hyperplasia) COVID-19 vaccine series completed Depression GERD (gastroesophageal reflux disease) Hypertension Peripheral vascular disease Urinary retention Family History Father Colon cancer Mother Asthma Son HTN (hypertension) Surgical History H/O colonoscopy History of below-knee amputation of both lower extremities History of bladder surgery Social History Housing: House Housing Other:: 2 family home-son & DIL 2nd floor Are you a primary care program director to a significant other at home: No Do you presently have visiting nurse or other home services: No Alcohol intake: never Patient Tobacco Use Status: Never used Tobacco e-Cigarette/Vaping Use: Never Used Second Hand Smoke Exposure: No Use of substances other than those prescribed or required for medical reasons: No Advance Directives: No Advance Directives Information Provided: No service: No Current occupational status: disabled Cognitive needs: No Hearing needs: Yes Vision needs: Yes Meds Allergies Allergy/AdvReac Type Severity Reaction Status Date / Time No Known Allergies Allergy Verified 07/13/22 13:34 Active Medications: Current Medications Acetaminophen (Acetaminophen 325 Mg Tablet) 650 mg PO Q6H PRN PRN Reason: Pain, Mild (Pain Scale 1-3) Docusate Sodium (Docusate Sodium 100 Mg Capsule) 100 mg PO BID PRN PRN Reason: Constipation Sodium Chloride (Ns) 1,000 mls @ 150 mls/hr IVCONT .Q6H40M [facility] Last Admin: 07/13/22 15:50 Dose: 150 mls/hr Diltiazem HCl 125 mg/ Sodium (Chloride) 125 mls @ 0 mls/hr IVCONT .Q0M [facility]; Protocol Last Admin: 07/13/22 16:49 Dose: 10 mg/hr, 10 mls/hr Ondansetron HCl (Ondansetron Hcl 4 Mg/2 Ml Vial) 4 mg IVPUSH Q8H PRN PRN Reason: Nausea and Vomiting Pharmacy Consult (Consult Rx Perform Med Rec) 1 each MISCELLANE ONCE PRN PRN Reason: Consult order Sodium Chloride (0.9 % Sodium Chloride Flush 3 Ml Syringe) 3 ml IVFLUSH QSHIFT [facility] Home Medications Medication Instructions Recorded Confirmed Last Taken Type aspirin 81 mg tablet,delayed 81 mg PO DAILY 03/09/22 07/13/22 Unknown History release docusate sodium 100 mg capsule 100 mg PO DAILY PRN Constipation 05/29/22 07/13/22 Unknown History atorvastatin 40 mg tablet 1 tab PO DAILY 07/13/22 07/13/22 Unknown History Physical Exam Vital Signs and Narrative: Vital Signs: Last Vital Signs Temp 98.0 F 07/13/22 16:45 Pulse 92 07/13/22 16:45 Resp 15 07/13/22 16:45 BP 127/60 07/13/22 16:45 Pulse Ox 99 07/13/22 16:45 O2 Del Method Nasal Cannula 07/13/22 16:45 BMI result Body Mass Index 29.7 Constitutional - Awake and Alert, No apparent distress Eyes - PERRLA, EOMI Cardiovascular - S1S2, RRR, No edema Respiratory - Normal lung expansion, Normal respiratory effort, No respiratory distress, CTA bilaterally Gastrointestinal - NT / ND; +BS; No rebound or guarding : urostomy bag in place draining light yellow urine Extremities - s/p b/l bka, no swelling Skin - Warm/Dry Neurological - Alert & oriented x3, Cn II -Xii in tact. 5/5 strength bue and ble Psychological - Appropriate affect Results Labs CBC and Chem 7: 07/13/22 15:23 07/13/22 16:06 Labs: Laboratory Results - last 24 hr 07/13/22 07/13/22 07/13/22 15:23 15:23 15:23 MCV 92.6 MCH 30.9 MCHC 33.4 RDW 14.6 Plt Count 319 MPV 9.5 Immature Gran % (Auto) 0.4 Neut % (Auto) 78.7 H Lymph % (Auto) 13.0 L [place] % (Auto) 6.5 Eos % (Auto) 0.4 Baso % (Auto) 1.0 Lymph # (Auto) 1.3 [place] # (Auto) 0.7 Eos # (Auto) 0.0 Baso # (Auto) 0.1 Abs Immat Gran (auto) 0.04 H Absolute Neuts (auto) 8.1 Absolute Nucleated RBC 0.000 Nucleated RBC % (auto) 0.0 Anion Gap Estim Creat Clear Calc Estimated GFR Random Glucose Calcium Magnesium Total Bilirubin Direct Bilirubin AST ALT Alkaline Phosphatase Troponin I High Sens 45.6 H Total Protein Albumin Lipase COVID-19 ([facility]) Negative COVID-19 Clin Com See Note 07/13/22 16:06 MCV MCH MCHC RDW Plt Count MPV Immature Gran % (Auto) Neut % (Auto) Lymph % (Auto) [place]rus % (Auto) Eos % (Auto) Baso % (Auto) Lymph # (Auto) [place] # (Auto) Eos # (Auto) Baso # (Auto) Abs Immat Gran (auto) Absolute Neuts (auto) Absolute Nucleated RBC Nucleated RBC % (auto) Anion Gap 18 Estim Creat Clear Calc 43.8 Estimated GFR 53 Random Glucose 92 Calcium 8.7 D Magnesium 1.8 Total Bilirubin 0.9 Direct Bilirubin 0.4 AST 24 ALT 17 Alkaline Phosphatase 199 H Troponin I High Sens Total Protein 5.8 L Albumin 3.2 L Lipase 37 COVID-19 ([facility]) COVID-19 Clin Com Imaging Radiologist's Impressions: Impressions Chest X-Ray 07/13/22 14:51 IMPRESSION: There may be small bilateral pleural effusions. No consolidation. Assessment and Plan (1) Atrial flutter with rapid ventricular response: Status: Acute Plan 87 year old male with history of paroxysmal atrial fibrillation/flutter on eliquis, CAD, PAD s/p b/l BKA, HTN, HLD, CKD stage 3, chronic constipation, s/p urostomy d/t neurogenic bladder and bladder outlet obstruction, and depression/anxiety admitted for atrial flutter with RVR. 1- Atrial flutter with RVR -Noted on EKG in cardiology this am with HR 141 on arrival to ED -Given 20mg dilt push, started on cardizem drip. Continue cardizem drip -Continue eliquis for anticoagulation. Denies bleeding, H/H stable -Last echo 02/26 without systolic failure, normal EF. Grade II diastolic dysfunction -Resume metoprolol am -Cardiology consult placed -Admit to telemetry 2-Possible small b/l effusions on cxr -Pt reporting sob -Last echo 02/26 without systolic failure, normal EF. Grade II diastolic dysfunction. No hx CHF -One time dose lasix 20mg IV ordered -IVF discontinued -Daily weights, strict I&O -BNP ordered -Cardiac diet -Cardiology consulted 3-CAD with Chest pain unchanged similar to prior episodes- unlikely ACS -EKG with nonspecific t wave abnormality -Initial trop 45. Repeat trop pending -Contineu and statin and asa 4-HTN- reasonably controlled -Continue cardizem drip -Resume metoprolol am 5-Urinary retention s/p urostomy -Continue devlin 6-PAD s/p b/l BKA -Continue asa -Gabapentin for phantom pain 7-Chronic constipation -Continue docusate and miralax. DVt proph- on eliquis Full code Pt requires inpt stay of at least two midnights due to afib with RVR requiring cardizem drip and close cardiac monitoring Quality Stroke Does the patient have a stroke diagnosis?: No VTE Prior VTE?: No VTE Risk Level:: Medical - moderate - high VTE Device Contraindication: Treatment Not Indicated VTE Drug Contraindication: Treatment Not Indicated
--- NOTE | 2022-07-13 18:43 | PHA.MEDREC ---
MED REC COMPLETE, SPOKE WITH DAUGHTER IN LAW, there is some confusion on if patient was supposed to be on amiodarone at one point, he has not been taking it. Mentioned that this should be discussed with kiln furniture caster during this admission. Pharmacy Consult ? Medication Reconciliation Pharmacy has completed the medication reconciliation.
--- NOTE | 2022-07-13 19:07 | P.EN_ITS ---
Event Note Date of Service: 07/13/22 Event Note: Patient seen and examined: Patient came with the hospital with the dizziness, nausea for few days also has intermittent chest tightness: Went to his laboratory immunologist's office and found to have AFib with RVR. Physical exam: Appearance: Alert.? Oriented X3.? not in distress.? Eyes: Pupils equal, round and reactive to light.? Sclera nonicteric.? ENT: Pharynx normal.? Moist mucous membranes. cvs: rrr, [id number] , no murmur res: somewhat diminshed at bases , few scattered rales abd: no rebound or guarding ,nt, bs present. ext: has bka. neuro: axo3 , nonfocal. Lab imaging and EKG reviewed: EKG seems AFib with RVR CBC seems fine, troponin first: 45 , 2nd troponin pending. BMP seems fine: Creatinine clearance is around 50s so possibly has CKD stage 3. Chest x-ray: Mild pleural effusions Assessment and plan coordinated in H&P note APC: Agree with plan AFib with RVR: Continue Cardizem drip Follow troponin Cardiology evaluation in a.m. Will give IV Lasix 1 dose, add BNP.
[2022-07-13] MEDS: Furosemide 20 MG/2 ML VIAL IVPUSH (19:18)
[2022-07-13 19:33] LABS: B Type Natriuretic Peptide 487 pg/mL (<100); Troponin-I High Sensitivity 48.9 ng/L (<3.5-35.0)
--- NOTE | 2022-07-13 20:42 | PC.NURSE ---
Pt aox3. Breaths are even and unlabored at 16pbm. O2 Sat 99% RA. HR 71 with NSR on monitor with occasional pvc's. BP: 108/56. Skin is warm pink and dry. No apparent distress noted. 20G on right hand wiht Dilt 125 running at 10ml/hr. Supra pubic catheter in place with 900cc of clear yellow urine in collection bag. Will continue to monitor.
--- NOTE | 2022-07-13 23:19 | PC.NURSE ---
Pt aox3. Breaths are even and unlabored with 19 bpm. O2 sat 95% RA. NSR on monitor with occasional pvc's. BP 123/55 HR 71. No apparent distress noted. Dilt 125 running at 10mg/hr. Will continue to monitor.
[2022-07-14] VITALS (11 sets, daily range): BP systolic 103–134; BP diastolic 43–76; PULSE 64–91; RESP 14–20; TEMP 36.5–37.1; O2SAT 93–97; BMI 27.6
--- NOTE | 2022-07-14 02:27 | PC.NURSE ---
Pt is resting quietly in no apparent distress. Breaths are even and unlabored with equal chest rises. RR: 20bpm, O2 Sat 93% RA. NSR on monitor with ocassional pcv's noted. BP 122/58 HR 71. Dilt 125 running at 10mg/hr. 2000cc emptied from supra pubic devlin container bag. Will continue to monitor.
[2022-07-14] MEDS: Acetaminophen 325 MG TABLET 650 MG PO (03:43)
--- NOTE | 2022-07-14 03:46 | PC.NURSE ---
PT ao x 3. Reports chronic bilateral leg pain that starts after 3am every morning. Pt medicated for the pain. Pt repositioned in bed. Diltiazem 125 running at 10mg/hr. Will continue to monitor.
[2022-07-14] MEDS: dilTIAZem HCL 125 MG in 0.9 % Sodium Chloride 100 ML 10 MG IVCONT (04:00)
--- NOTE | 2022-07-14 08:41 | ECG_ITS ---
Test Reason : REPEAT Blood Pressure : / mmHG Vent. Rate : 067 BPM Atrial Rate : 067 BPM P-R Int : 180 ms QRS Dur : 074 ms QT Int : 586 ms P-R-T Axes : 082 055 090 degrees QTc Int : 619 ms Normal sinus rhythm Nonspecific T wave abnormality Abnormal ECG When compared with ECG of 13-JUL-2022 15:44, Sinus rhythm has replaced Atrial fibrillation Nonspecific T wave abnormality no longer evident in Inferior leads QT has lengthened Referred By: Zev Milner Electronically Signed By:ALIVIA NGO MD
--- NOTE | 2022-07-14 09:26 | PC.NURSE ---
this nurse spoke with Dr. Red regarding pt diltiazem drip. pt will be started on oral dose once titrated off drip. Pt current heart rate 73 on 10mg/hr. Drip has been titrated down to 5mg/hr, will continue to monitor pt heart rate to titrate further
--- NOTE | 2022-07-14 09:29 | P.CONCA_ITS ---
History of Present Illness History of Present Illness Date of Service: 07/14/22 Requesting physician: Duc Red Consult reason: other (Atrial flutter) Chief complaint: afib with rvr Narrative: I was consulted to see Kg in cardiology consultation today for atrial flutter. Patient is 87-year-old male bilateral amputee with limited activity with prior history of atherosclerotic cardiovascular disease with peripheral vascular disease, diabetes and paroxysmal atrial flutter fibrillation. Yesterday was seen in the office by Dr. Jesus he came in because he was complaining of dizziness and chest discomfort. He was noted to be in rapid atrial flutter and was referred to the emergency room because of his symptoms. He was started on Cardizem drip and since then his rate is been controlled. History was obtained with help of timber bucker. Currently has no symptoms. Denies any dizziness or chest pain or palpitations. Blood pressures been stable. He is currently on metoprolol p.o. as well as oral anticoagulation with Eliquis EKG shows no ischemic changes. Troponin is minimally elevated. BNP is elevated. He denies any shortness of breath or orthopnea PND. Denies any leg edema. Complains of phantom pain Review of Systems Constitutional: Constitutional: Reports no additional constitutional complaints Eyes: Eyes: Reports no additional eye complaints Cardiovascular: Cardiovascular: Reports chest pain at rest, Denies leg edema, Reports lightheadedness and Denies palpitations Respiratory: Respiratory: Reports no additional respiratory complaints Gastrointestinal: Gastrointestinal: Reports no additional gastrointestinal complaints Genitourinary: Genitourinary: Reports no additional male genitourinary complaints Musculoskeletal: Musculoskeletal: Reports no additional musculoskeletal complaints Integumentary/Breasts: Skin/Breast: Reports system reviewed and no additional complaints, except as docu Neurologic: Reports system reviewed and no additional complaints, except as documented Psychiatric: Psychiatric: Reports no additional psychiatric complaints Endocrine: Endocrine: Denies palpitations PMFSH Past Medical History Medical History Atherosclerotic cardiovascular disease BPH (benign prostatic hyperplasia) COVID-19 vaccine series completed Depression GERD (gastroesophageal reflux disease) Hypertension Peripheral vascular disease Urinary retention Family History Family History Father Colon cancer Mother Asthma Son HTN (hypertension) Surgical History Surgical History H/O colonoscopy History of below-knee amputation of both lower extremities History of bladder surgery Social History Social History Housing: House Housing Other:: 2 family home-son & DIL 2nd floor Are you a primary senior resident care director to a significant other at home: No Do you presently have visiting nurse or other home services: No Alcohol intake: never Patient Tobacco Use Status: Never used Tobacco e-Cigarette/Vaping Use: Never Used Second Hand Smoke Exposure: No Use of substances other than those prescribed or required for medical reasons: No Advance Directives: No Advance Directives Information Provided: No service: No Current occupational status: disabled Cognitive needs: No Hearing needs: Yes Vision needs: Yes Meds Allergies Allergy/AdvReac Type Severity Reaction Status Date / Time No Known Allergies Allergy Verified 07/13/22 13:34 Active Medications: Current Medications Acetaminophen (Acetaminophen 325 Mg Tablet) 650 mg PO Q6H PRN PRN Reason: Pain, Mild (Pain Scale 1-3) Last Admin: 07/14/22 03:43 Dose: 650 mg Apixaban (Apixaban 5 Mg Tablet) 5 mg PO BID [facility] Aspirin (Aspirin Enteric Coated 81 Mg Tablet.Dr) 81 mg PO DAILY [facility] Atorvastatin Calcium (Atorvastatin Calcium 40 Mg Tablet) 40 mg PO DAILY [facility] Diltiazem HCl (Diltiazem Hcl 60 Mg Tablet) 60 mg PO QID [facility]; Protocol Docusate Sodium (Docusate Sodium 100 Mg Capsule) 100 mg PO BID PRN PRN Reason: Constipation Docusate Sodium (Docusate Sodium 100 Mg Capsule) 100 mg PO DAILY PRN PRN Reason: Constipation Furosemide (Furosemide 20 Mg Tablet) 20 mg PO DAILY [facility]; Protocol Gabapentin (Gabapentin 300 Mg Capsule) 300 mg PO BEDTIME [facility] Diltiazem HCl 125 mg/ Sodium (Chloride) 125 mls @ 0 mls/hr IVCONT .Q0M [facility]; Protocol Last Titration: 07/14/22 09:25 Dose: 5 mg/hr, 5 mls/hr Metoprolol Succinate (Metoprolol Succinate Er 25 Mg Tab.Er.24h) 25 mg PO DAILY [facility]; Protocol Ondansetron HCl (Ondansetron Hcl 4 Mg/2 Ml Vial) 4 mg IVPUSH Q8H PRN PRN Reason: Nausea and Vomiting Pharmacy Consult (Consult Rx Perform Med Rec) 1 each MISCELLANE ONCE PRN PRN Reason: Consult order Polyethylene Glycol (Polyethylene Glycol 3350 17 Gm Powd.Pack) 17 gm PO DAILY PRN PRN Reason: constipation Sodium Chloride (0.9 % Sodium Chloride Flush 3 Ml Syringe) 3 ml IVFLUSH QSHIFT [facility] Last Admin: 07/14/22 07:14 Dose: Not Given Home Medications Medication Instructions Recorded Confirmed Last Taken Type aspirin 81 mg tablet,delayed 81 mg PO DAILY 03/09/22 07/13/22 Unknown History release docusate sodium 100 mg capsule 100 mg PO DAILY PRN Constipation 05/29/22 07/13/22 Unknown History atorvastatin 40 mg tablet 1 tab PO DAILY 07/13/22 07/13/22 Unknown History Physical Exam Vital Signs: Vital Signs: Last Vital Signs Temp 97.9 F 07/14/22 06:30 Pulse 73 07/14/22 07:27 Resp 20 07/14/22 07:27 BP 134/43 L 07/14/22 07:27 Pulse Ox 96 07/14/22 07:27 O2 Del Method 07/14/22 07:27 BMI result Body Mass Index 27.6 Const: General: cooperative, comfortable, no acute distress, alert and awake Nutritional Appearance: overweight Orientation/consciousness: patient oriented x3 HEENT: Head: Yes normocephalic and Yes atraumatic Neck: Neck: Yes trachea midline, Yes supple and Yes no JVD Resp: Effort & Inspection: decreased respiratory effort Auscultation: clear to auscultation bilaterally Cardio: Jugular venous distension: no JVD Rate: regular rate Rhythm: abnormal rhythm irregularly irregular Heart sounds: S1 normal heart sound present, S2 normal heart sound present, no click, no gallops, no murmurs and no rubs GI: Auscultation: normal bowel sounds Neuro: General: patient oriented x3 and no focal motor deficits Extrem: General: Yes no clubbing, cyanosis or edema and Yes other (Bilateral amputation) Objective Labs and Meds Result diagrams: 07/13/22 15:23 07/13/22 16:06 Lab results: Laboratory Results - last 24 hr 07/13/22 07/13/22 07/13/22 15:23 15:23 15:23 WBC 10.3 RBC 4.75 Hgb 14.7 Hct 44.0 MCV 92.6 MCH 30.9 MCHC 33.4 RDW 14.6 Plt Count 319 MPV 9.5 Immature Gran % (Auto) 0.4 Neut % (Auto) 78.7 H Lymph % (Auto) 13.0 L Garrett % (Auto) 6.5 Eos % (Auto) 0.4 Baso % (Auto) 1.0 Lymph # (Auto) 1.3 Garrett # (Auto) 0.7 Eos # (Auto) 0.0 Baso # (Auto) 0.1 Abs Immat Gran (auto) 0.04 H Absolute Neuts (auto) 8.1 Absolute Nucleated RBC 0.000 Nucleated RBC % (auto) 0.0 Sodium Potassium Chloride Carbon Dioxide Anion Gap BUN Creatinine Estim Creat Clear Calc Estimated GFR Random Glucose Calcium Magnesium Total Bilirubin Direct Bilirubin AST ALT Alkaline Phosphatase Troponin I High Sens 45.6 H B-Natriuretic Peptide Total Protein Albumin Lipase COVID-19 ([facility]) Negative COVID-19 Clin Com See Note 07/13/22 07/13/22 16:06 18:51 WBC RBC Hgb Hct MCV MCH MCHC RDW Plt Count MPV Immature Gran % (Auto) Neut % (Auto) Lymph % (Auto) Garrett % (Auto) Eos % (Auto) Baso % (Auto) Lymph # (Auto) Garrett # (Auto) Eos # (Auto) Baso # (Auto) Abs Immat Gran (auto) Absolute Neuts (auto) Absolute Nucleated RBC Nucleated RBC % (auto) Sodium 140 Potassium 4.6 Chloride 107 Carbon Dioxide 20 L Anion Gap 18 BUN 18 H Creatinine 1.29 Estim Creat Clear Calc 43.8 Estimated GFR 53 Random Glucose 92 Calcium 8.7 D Magnesium 1.8 Total Bilirubin 0.9 Direct Bilirubin 0.4 AST 24 ALT 17 Alkaline Phosphatase 199 H Troponin I High Sens 48.9 H B-Natriuretic Peptide 487 H Total Protein 5.8 L Albumin 3.2 L Lipase 37 COVID-19 ([facility]) COVID-19 Clin Com Imaging Radiologist's impression: Impressions Chest X-Ray 07/13/22 14:51 IMPRESSION: There may be small bilateral pleural effusions. No consolidation. Assessment and Plan (1) Atrial flutter with rapid ventricular response: Status: Acute Atrial flutter with variable conduction with better rate control with IV Cardizem drip. At this point in time will continue pursue rate control as his symptoms have resolved and he is hemodynamically stable no signs of heart failur e. Will transition to p.o. Cardizem 60 mg q.6. Start tapering IV Cardizem after 2 hours of 1st p.o. does. Only gradually reduce Cardizem drip. Continue full oral anticoagulation with Eliquis. Continue low-dose metoprolol therapy and will wait controlled. If he converts to sinus rhythm will probably use that to convert him to p.o. antiarrhythmic drug therapy. However he does not require synchronized cardioversion at this point in time. (2) Atherosclerotic cardiovascular disease: Status: Acute Prior atherosclerotic cardiovascular disease mostly peripheral vascular disease but also has evidence of inferolateral ischemia/infarction on recent nuclear study. He is on aspirin therapy for the same. Also metoprolol and statin. Continue the same. No active ischemic AV issues right now. Troponin elevation most likely due to rapid atrial flutter and does not appear to be having acute coronary syndrome. Will continue to follow with you. Procedures Date of Service Date of Service: 07/14/22
--- NOTE | 2022-07-14 10:02 | MHC.CM.PN ---
pt lives with his in a 2 family home his son and dil live up stairs pts son is mill operator 34 daytime hrs and 14 overnite pt is active with [facility] pt is w/c bound will need amb transport home
--- NOTE | 2022-07-14 10:08 | PC.NURSE ---
pt maintained HR in 70-80s range with diltiazem drip lowered to 5mg/hr. Titrated drip down to 0mg/hr will assess for need to re-start drip
[2022-07-14] MEDS: Atorvastatin Calcium 40 MG TABLET PO (10:13)
[2022-07-14] MEDS: dilTIAZem HCL 60 MG TABLET PO ×4 (10:13→22:24)
[2022-07-14] MEDS: Aspirin Enteric Coated 81 MG TABLET.DR PO (10:13)
[2022-07-14] MEDS: Gabapentin 300 MG CAPSULE PO ×2 (10:13→22:24)
[2022-07-14] MEDS: Apixaban 5 MG TABLET PO ×2 (10:13→22:23)
[2022-07-14] MEDS: Metoprolol Succinate ER 25 MG TAB.ER.24H PO (10:13)
--- NOTE | 2022-07-14 10:55 | PC.NURSE ---
pt maintaining HR in the 80s-90s with diltiazem drip off. pt reports no chest pain or SOB. Denies pain at this time. All AM medications administered with no issue, pt has been started on oral diltiazem to maintain HR
--- NOTE | 2022-07-14 13:54 | PC.NURSE ---
ate all of lunch 100%
--- NOTE | 2022-07-14 14:10 | HO.PM.IMPN ---
Subjective Subjective Date of Service: 07/14/22 Interval History: afib with rvr Review of Systems seems improving Denies any chest pain or shortness of breath or abdominal pain or fever chills or cough or phlegm. Physical Exam Vital Signs: Vital Signs: Last Vital Signs Temp 98.7 F 07/14/22 10:18 Pulse 64 07/14/22 12:25 Resp 17 07/14/22 12:25 BP 117/76 07/14/22 12:25 Pulse Ox 95 07/14/22 12:25 O2 Del Method 07/14/22 12:25 BMI result Body Mass Index 27.6 Appearance: Alert.? Oriented X3.? not in distress.? cvs: irregular rythem, [id number] , no murmur res: clear to auscultation ,no rhonchii or wheezing abd: no rebound or guarding ,nt, bs present. ext : bka neuro: axo3 , nonfocal. Objective Data Active Medications Acetaminophen (Acetaminophen 325 Mg Tablet) 650 mg PO Q6H PRN PRN Reason: Pain, Mild (Pain Scale 1-3) Last Admin: 07/14/22 03:43 Dose: 650 mg Documented By: HIRAM Apixaban (Apixaban 5 Mg Tablet) 5 mg PO BID [facility] Last Admin: 07/14/22 10:13 Dose: 5 mg Documented By: YOLANDE Aspirin (Aspirin Enteric Coated 81 Mg Tablet.) 81 mg PO DAILY [facility] Last Admin: 07/14/22 10:13 Dose: 81 mg Documented By: YOLANDE Atorvastatin Calcium (Atorvastatin Calcium 40 Mg Tablet) 40 mg PO DAILY [facility] Last Admin: 07/14/22 10:13 Dose: 40 mg Documented By: YOLANDE Diltiazem HCl (Diltiazem Hcl 60 Mg Tablet) 60 mg PO QID [facility]; Protocol Last Admin: 07/14/22 13:06 Dose: 60 mg Documented By: YOLANDE Docusate Sodium (Docusate Sodium 100 Mg Capsule) 100 mg PO BID PRN PRN Reason: Constipation Docusate Sodium (Docusate Sodium 100 Mg Capsule) 100 mg PO DAILY PRN PRN Reason: Constipation Furosemide (Furosemide 20 Mg Tablet) 20 mg PO DAILY [facility]; Protocol Gabapentin (Gabapentin 300 Mg Capsule) 300 mg PO BEDTIME [facility] Last Admin: 07/14/22 10:13 Dose: 300 mg Documented By: YOLANDE Diltiazem HCl 125 mg/ Sodium (Chloride) 125 mls @ 0 mls/hr IVCONT .Q0M [facility]; Protocol Last Titration: 07/14/22 10:06 Dose: 0 mg/hr, 0 mls/hr Documented By: YOLANDE Metoprolol Succinate (Metoprolol Succinate Er 25 Mg Tab.Er.24h) 25 mg PO DAILY [facility]; Protocol Last Admin: 07/14/22 10:13 Dose: 25 mg Documented By: YOLANDE Ondansetron HCl (Ondansetron Hcl 4 Mg/2 Ml Vial) 4 mg IVPUSH Q8H PRN PRN Reason: Nausea and Vomiting Pharmacy Consult (Consult Rx Perform Med Rec) 1 each MISCELLANE ONCE PRN PRN Reason: Consult order Polyethylene Glycol (Polyethylene Glycol 3350 17 Gm Powd.Pack) 17 gm PO DAILY PRN PRN Reason: constipation Sodium Chloride (0.9 % Sodium Chloride Flush 3 Ml Syringe) 3 ml IVFLUSH QSHIFT [facility] Last Admin: 07/14/22 07:14 Dose: Not Given Documented By: VERONIKA Non-Admin Reason: Med Not Available Labs CBC & Chem 7: 07/13/22 15:23 07/13/22 16:06 Labs: Laboratory Results - last 24 hr 07/13/22 07/13/22 07/13/22 15:23 15:23 15:23 MCV 92.6 MCH 30.9 MCHC 33.4 RDW 14.6 Plt Count 319 MPV 9.5 Immature Gran % (Auto) 0.4 Neut % (Auto) 78.7 H Lymph % (Auto) 13.0 L [place] % (Auto) 6.5 Eos % (Auto) 0.4 Baso % (Auto) 1.0 Lymph # (Auto) 1.3 [place] # (Auto) 0.7 Eos # (Auto) 0.0 Baso # (Auto) 0.1 Abs Immat Gran (auto) 0.04 H Absolute Neuts (auto) 8.1 Absolute Nucleated RBC 0.000 Nucleated RBC % (auto) 0.0 Anion Gap Estim Creat Clear Calc Estimated GFR Random Glucose Calcium Magnesium Total Bilirubin Direct Bilirubin AST ALT Alkaline Phosphatase Troponin I High Sens 45.6 H B-Natriuretic Peptide Total Protein Albumin Lipase COVID-19 ([facility]) Negative COVID-19 Clin Com See Note 07/13/22 07/13/22 16:06 18:51 MCV MCH MCHC RDW Plt Count MPV Immature Gran % (Auto) Neut % (Auto) Lymph % (Auto) [place] % (Auto) Eos % (Auto) Baso % (Auto) Lymph # (Auto) [place] # (Auto) Eos # (Auto) Baso # (Auto) Abs Immat Gran (auto) Absolute Neuts (auto) Absolute Nucleated RBC Nucleated RBC % (auto) Anion Gap 18 Estim Creat Clear Calc 43.8 Estimated GFR 53 Random Glucose 92 Calcium 8.7 D Magnesium 1.8 Total Bilirubin 0.9 Direct Bilirubin 0.4 AST 24 ALT 17 Alkaline Phosphatase 199 H Troponin I High Sens 48.9 H B-Natriuretic Peptide 487 H Total Protein 5.8 L Albumin 3.2 L Lipase 37 COVID-19 ([facility]) COVID-19 Clin Com Assessment and Plan (1) Atrial flutter with rapid ventricular response: Status: Acute (2) PAF (paroxysmal atrial fibrillation): Status: Acute Plan 87 year old male with history of paroxysmal atrial fibrillation/flutter on eliquis, CAD, PAD s/p b/l BKA, HTN, HLD, CKD stage 3, chronic constipation, s/p urostomy d/t neurogenic bladder and bladder outlet obstruction, and depression/anxiety admitted for atrial flutter with RVR. 1- Atrial flutter with RVR(PAF) -Noted on EKG in cardiology this am with HR 141 on arrival to ED -Given 20mg dilt push, started on cardizem drip. Continue cardizem drip hr improving , taper to stop Cardizem drip, started on p.o. Cardizem continue metoprolol, Eliquis. 2-Possible small b/l effusions on cxr -Pt reporting sob -Last echo 02/26 without systolic failure, normal EF. Grade II diastolic dysfunction. No hx CHF -One time dose lasix 20mg IV ordered -IVF discontinued -Daily weights, strict I&O -BNP elevated -Cardiac diet -Cardiologyd/w less likely chf,po lasix. 3-CAD with Chest pain unchanged similar to prior episodes- unlikely ACS -EKG with nonspecific t wave abnormality -Initial trop flat. -Contineu and statin and asa 4-HTN- reasonably controlled -Continue cardizem drip -Resume metoprolol am 5-Urinary retention s/p urostomy -Continue devlin 6-PAD s/p b/l BKA -Continue asa -Gabapentin for phantom pain 7-Chronic constipation -Continue docusate and miralax. DVt proph- on eliquis Inpatient need: AFib with RVR on IV Cardizem and need monitoring for AFib and need cardio follow-up. Quality Stroke Does the patient have a stroke diagnosis?: No VTE Prior VTE?: No VTE Risk Level:: Medical - moderate - high VTE Device Contraindication: Treatment Not Indicated VTE Drug Contraindication: Treatment Not Indicated
--- NOTE | 2022-07-14 15:59 | PC.NURSE ---
pt tolerating being on oral Diltiazem well, HR has stayed in the 60-90 range throughout the day since pausing the diltiazem drip. Pt reports no chest pain or palpitations
--- NOTE | 2022-07-14 17:04 | PC.NURSE ---
Assumed care of patient at this time.
[2022-07-14] MEDS: 0.9 % Sodium Chloride Flush 3 ML SYRINGE IVFLUSH (22:24)
[2022-07-15 03:47] VITALS: BP 115/58; PULSE 65; RESP 17; TEMP 36.2; O2SAT 95
[2022-07-15 06:00] VITALS: BMI 26.8
[2022-07-15 07:39] VITALS: BP 127/61; PULSE 68; RESP 12; TEMP 35.7; O2SAT 95
[2022-07-15] MEDS: Metoprolol Succinate ER 25 MG TAB.ER.24H PO (09:25)
[2022-07-15] MEDS: Furosemide 20 MG TABLET PO (09:26)
[2022-07-15] MEDS: Atorvastatin Calcium 40 MG TABLET PO (09:26)
[2022-07-15] MEDS: Aspirin Enteric Coated 81 MG TABLET.DR PO (09:26)
[2022-07-15] MEDS: Apixaban 5 MG TABLET PO (09:27)
[2022-07-15] MEDS: dilTIAZem HCL CD 180 MG CAP.ER.24H 360 MG PO (09:27)
[2022-07-15] MEDS: 0.9 % Sodium Chloride Flush 3 ML SYRINGE IVFLUSH (09:29)
--- NOTE | 2022-07-15 12:02 | PM.PNCARD ---
Subjective Subjective Date of Service: 07/15/22 Principal diagnosis: Atrial flutter with rapid ventricular response Interval history: Patient currently not having any symptoms. No palpitations or dizziness or chest pain. Heart rate is been well controlled on p.o. Cardizem. Denies any heart failure symptoms. Review of Systems Review of Systems Yes all other systems are reviewed and are negative Physical Exam Vital Signs: Last Vital Signs Temp 96.2 F L 07/15/22 07:39 Pulse 68 07/15/22 07:39 Resp 12 07/15/22 07:39 BP 127/61 07/15/22 07:39 Pulse Ox 95 07/15/22 07:39 O2 Del Method 07/15/22 07:39 BMI result Body Mass Index 26.8 Const General: cooperative, comfortable, no acute distress, alert and awake Nutritional Appearance: overweight Orientation/consciousness: patient oriented x3 Neck Neck: Yes trachea midline, Yes supple and Yes no JVD Resp Effort & Inspection: decreased respiratory effort Auscultation: clear to auscultation bilaterally Cardio Jugular venous distension: no JVD Rate: regular rate Rhythm: abnormal rhythm irregularly irregular Heart sounds: S1 normal heart sound present, S2 normal heart sound present, no click, no gallops, no murmurs and no rubs Neuro General: patient oriented x3 and no focal motor deficits Objective Labs and Meds Result diagrams: 07/13/22 15:23 07/13/22 16:06 Progress Note: A&P Assessment and plan (1) Atrial flutter with rapid ventricular response: Status: Acute Assessment and Plan: Admission with atrial flutter with rapid ventricular response with symptoms. Symptoms are resolved with rate control. Remains in atrial flutter. Will continue pursue rate control. Switch to long-acting Cardizem 240 mg daily as well as continue low-dose metoprolol. Continue full oral anticoagulation with Eliquis. Outpatient follow-up with Dr. Jesus in 4 weeks time after Holter monitor. No need for synchronized cardioversion at this point time. Elevated BNP could be due to persistent atrial flutter. Clinically does appear to be in overt heart failure. Although can be on low-dose Lasix therapy. Heart failure management we discussed with the family. (2) Atherosclerotic cardiovascular disease: Status: Acute Assessment and Plan: Diffuse vascular disease with evidence of inferolateral ischemia on recent nuclear testing. Continue risk factor modification blood pressure is well optimized. Currently on full oral anticoagulation with Eliquis. Patient can be discharged from cardiac perspective. Will set up for outpatient follow-up. Time Spent With Patient Time: Total time spent is greater than 50% in coordination of care (as documented) at patient's floor/unit and/or counseling patient: Progress Note: Quality Stroke Does the patient have a stroke diagnosis?: No Procedures Date of Service Date of Service: 07/15/22
--- NOTE | 2022-07-15 12:04 | PM.DS ---
DS: Providers Provider Date of Service: 07/15/22 Date of admission: 07/13/22 18:15 Primary care physician: VAISHNAVI Coe Consults: 07/13/22 18:21 Consult to Cardiology Routine Consulting Provider: Maxime Zavaleta Reason for consultation: afib with rvr DS: Diagnosis Discharge Diagnosis (1) Atrial flutter with rapid ventricular response: Status: Acute (2) PAF (paroxysmal atrial fibrillation): Status: Acute (3) Chest pain: Status: Acute DS: Summary Hospital Course Hospital Course: 87 year old male with history of paroxysmal atrial fibrillation/flutter on eliquis, CAD, PAD s/p b/l BKA, HTN, HLD, CKD stage 3, chronic constipation, s/p urostomy d/t neurogenic bladder and bladder outlet obstruction, and depression/anxiety presented to the ED from Dr. Jesus office due to afib with RVR. He is here with his DIL Dorothea and . His DIL assists with south korean translation and history. She reports pt has had shortness of breath, lightheadedness, nausea, nonradiating nonexertional chest pain, pallor for the last 5 days.? She reports he was diagnosed with atrial fibrillation about 9 months ago and is anticoagulated with Eliquis.? He has been hospitalized twice since diagnosis at [facility] for AFib with RVR.? States at last admission about 3-4 months ago was supposed to have been started on amiodarone but the prescription was never called into the pharmacy and therefore he never started the medication but has been compliant with his metoprolol.? Last echocardiogram was from 02/2022 noting normal systolic function with preserved ejection fraction and grade 2 diastolic dysfunction.? He continues following with Dr. Jesus oupt.? On arrival to ED, patient tachycardic to 141, BP 152/91, mild tachypnea 22.? Hematology studies within normal limits.? Renal function and electrolytes stable.? Troponin 45.6.? CXR showing possible small bilateral pleural effusions.? EKG showing atrial fibrillation rate 77 and nonspecific T-wave abnormality. To be admitted for afib with rvr. Given 20mg diltiazem push with limited effect and started on Cardizem drip.? Also given 1 L normal saline. hopsital course: 87 year old male with history of paroxysmal atrial fibrillation/flutter on eliquis, CAD, PAD s/p b/l BKA, HTN, HLD, CKD stage 3, chronic constipation, s/p urostomy d/t neurogenic bladder and bladder outlet obstruction, and depression/anxiety admitted for atrial flutter with RVR- Seen by Cardiology-mild elevation of troponin (flat) and initial symptoms as in HPI section possibly related to AFib- started on Cardizem drip patient seems to be heart rate michelle improved, switched to p.o. Cardizem upon discharge in additionto toprol and In addition small dose of Lasix were suggested to add. Plan: Continue Cardizem moniter bmp closely Follow-up out patiently with cardiology for further management. Time Spent with Patient Time attestation: Total time spent providing and/or coordinating discharge services: Discharge coordination time: Greater than 30 minutes Quality: Safe Use of Opioids Does Pt have an Active Cancer Diagnosis on the Problem List?: No Quality: Stroke Does the patient have a stroke diagnosis?: No Physical Exam Vital Signs: Vital Signs: Last Vital Signs Temp 96.2 F L 07/15/22 07:39 Pulse 68 07/15/22 07:39 Resp 12 07/15/22 07:39 BP 127/61 07/15/22 07:39 Pulse Ox 95 07/15/22 07:39 O2 Del Method 07/15/22 07:39 BMI result Body Mass Index 26.8 Appearance: Alert.? Oriented X3.? not in distress.? Eyes: Pupils equal, round and reactive to light.? Sclera nonicteric.? ENT: Pharynx normal.? Moist mucous membranes. cvs: irregular rythem, [id number] . res: clear to auscultation ,no rhonchii or wheezing abd: no rebound or guarding ,nt, bs present. ext pulses present , no cyanosis. neuro: axo3 , nonfocal. DS: Data Additional Comments Additional comments: 15:23 15:23 15:23 MCV ?92.6 ? ? MCH ?30.9 ? ? MCHC ?33.4 ? ? RDW ?14.6 ? ? Plt Count ?319 ? ? MPV ?9.5 ? ? Immature Gran % (Auto) ?0.4 ? ? Neut % (Auto) ?78.7 H ? ? Lymph % (Auto) ?13.0 L ? ? [place] % (Auto) ?6.5 ? ? Eos % (Auto) ?0.4 ? ? Baso % (Auto) ?1.0 ? ? Lymph # (Auto) ?1.3 ? ? [place] # (Auto) ?0.7 ? ? Eos # (Auto) ?0.0 ? ? Baso # (Auto) ?0.1 ? ? Abs Immat Gran (auto) ?0.04 H ? ? Absolute Neuts (auto) ?8.1 ? ? Absolute Nucleated RBC ?0.000 ? ? Nucleated RBC % (auto) ?0.0 ? ? Anion Gap ? ? ? Estim Creat Clear Calc ? ? ? Estimated GFR ? ? ? Random Glucose ? ? ? Calcium ? ? ? Magnesium ? ? ? Total Bilirubin ? ? ? Direct Bilirubin ? ? ? AST ? ? ? ALT ? ? ? Alkaline Phosphatase ? ? ? Troponin I High Sens ? ?45.6 H ? B-Natriuretic Peptide ? ? ? Total Protein ? ? ? Albumin ? ? ? Lipase ? ? ? COVID-19 ([facility]) ? ? ?Negative COVID-19 Clin Com ? ? ?See Note ? 07/13/22 07/13/22 ? 16:06 18:51 MCV ? ? MCH ? ? MCHC ? ? RDW ? ? Plt Count ? ? MPV ? ? Immature Gran % (Auto) ? ? Neut % (Auto) ? ? Lymph % (Auto) ? ? [place] % (Auto) ? ? Eos % (Auto) ? ? Baso % (Auto) ? ? Lymph # (Auto) ? ? [place] # (Auto) ? ? Eos # (Auto) ? ? Baso # (Auto) ? ? Abs Immat Gran (auto) ? ? Absolute Neuts (auto) ? ? Absolute Nucleated RBC ? ? Nucleated RBC % (auto) ? ? Anion Gap ?18 ? Estim Creat Clear Calc ?43.8 ? Estimated GFR ?53 ? Random Glucose ?92 ? Calcium ?8.7? D ? Magnesium ?1.8 ? Total Bilirubin ?0.9 ? Direct Bilirubin ?0.4 ? AST ?24 ? ALT ?17 ? Alkaline Phosphatase ?199 H ? Troponin I High Sens ? ?48.9 H B-Natriuretic Peptide ? ?487 H Total Protein ?5.8 L ? Albumin ?3.2 L ? Lipase ?37 ? COVID-19 ([facility]) ? ? COVID-19 Clin Com ? XR/XR chest 1V IMPRESSION: There may be small bilateral pleural effusions. No consolidation. Discharge Plan Discharge Anticipated Discharge Date/Time: 07/15/22 11:57 Patient Disposition: Home Health Service Discharge Diagnosis: afib with rvr Referrals: Jessica White FNP [Primary Care Provider] - 1 Week Discharge Medications: New diltiazem HCl [Cardizem CD] 240 mg capsule,extended release 24hr 240 mg PO DAILY Qty: 30 0RF furosemide [Lasix] 20 mg tablet 20 mg PO DAILY Qty: 30 0RF Continued (DME) hospital bed Kit See Rx Instructions .Route Qty: 1 0RF Rx Instructions: As directed atorvastatin 40 mg tablet 1 tab PO DAILY gabapentin 100 mg capsule 300 mg PO BEDTIME 90 Days Qty: 270 1RF Rx Instructions: 3 caps at bedtime polyethylene glycol 3350 [Miralax] 17 gram powder in packet 17 g PO DAILY PRN (Reason: constipation) Qty: 30 0RF aspirin 81 mg tablet,delayed release (DR/EC) 81 mg PO DAILY metoprolol succinate [Toprol XL] 25 mg tablet extended release 24 hr 25 mg PO DAILY Qty: 90 3RF Eliquis 5 mg tablet 5 mg PO BID Qty: 180 3RF (DME) [employer] Urinary Drain Bag 2,000 mL misc See Rx Instructions .MEDSUPPLY Qty: 1 11RF Rx Instructions: As directed docusate sodium 100 mg capsule 100 mg PO DAILY PRN (Reason: Constipation) Discharge Orders: Discharge Order (Routine); Ordered 07/15/22 Ordered By: Duc Red Diet: Advance to usual diet Activity on Discharge: As tolerated Stand Alone Forms: Patient Portal Discharge page Other Ambulatory Orders: Basic Metabolic Panel (Routine) Timeframe: 1 Week Facility: [facility] - Location: Laboratory Ordered By: Duc Red Care Plan Goals: Patient came to the hospital because with regular heartbeat,chest tightness ,lightheadness : Started on IV medication to control heart rate: Seems to be improved, seen by heart doctor: Heart rate is improved, patient is switched to by mouth heart rate control medication Cardizem, follow-up with your heart doctor out patiently. Further management outpatient. Health Concerns: As above. Plan of Treatment: Started on Cardizem. If any new symptoms-please go to nearest emergency room for further evaluation. Assessment: As above. Patient Instructions: A-fib (Atrial Fibrillation) (DC)
[2022-07-15 12:31] VITALS: BP 113/58; PULSE 66; RESP 12; TEMP 36.1; O2SAT 92
--- NOTE | 2022-07-15 13:36 | MHC.CM.PN ---
Pt will be discharged today with existing [facility] skilled RN services. Kaylynn EWINGS to transport today at 4pm and will take pt's w/c. Pt and his DIL Dorothea aware and in agreement with plan.
--- NOTE | 2022-07-15 13:55 | W.MHC.F2F ---
Service Date Service Date: 07/15/22 Encounter Date of encounter: 07/15/22 Encounter: PAF. Reasons for Services Signs and symptoms assessed: chest pain or sob, tachycardia Reason for custodial: medication management, medication treatment and teach disease management MD Overseeing Care: Jessica White Homebound: Leaving the home is medically contraindicated at this time without the asist of a device and/or another person due th the listed conditions above and below. Reason homebound: weakness related to hospital stay Homebound supporting statement: Patient has multiple comorbidities including artery fibrillation, BKA, generalized weak post hospitalization need help to go to appointment as well as lab monitoring. Certification: Based on the above findings, I certify that this patient is confined to the home and needs intermittent custodial care, physical therapy and/or speech therapy, or continues to need occupational therapy. The patient is under my care, and I have initiated the establishment of the plan of care. The patient will be followed by a physician who will periodically review the plan of care.
== END 2022-07-15 16:17 | disposition home health service (06) | DRG 309 ==
LOC: HO.ED 17:57 → HO.EDOVER 18:27 → HO.IMC 07-15 15:09
PROVIDERS: Admitting Provider Physician Assistant; Emergency Provider Emergency Medicine; PCP Nurse Practitioner Family; Visit Provider Internal Medicine
DX: I48.92 Unspecified atrial flutter (principal); J90 Pleural effusion, not elsewhere classified; N13.8 Other obstructive and reflux uropathy; I48.0 Paroxysmal atrial fibrillation; L89.311 Pressure ulcer of right buttock, stage 1; E78.5 Hyperlipidemia, unspecified; I25.10 Atherosclerotic heart disease of native coronary artery without angina pectoris; K21.9 Gastro-esophageal reflux disease without esophagitis; I12.9 Hypertensive chronic kidney disease with stage 1 through stage 4 chronic kidney disease, or unspecified chronic kidney disease; E11.22 Type 2 diabetes mellitus with diabetic chronic kidney disease; N18.30 Chronic kidney disease, stage 3 unspecified; E11.51 Type 2 diabetes mellitus with diabetic peripheral angiopathy without gangrene; N40.1 Benign prostatic hyperplasia with lower urinary tract symptoms; N31.9 Neuromuscular dysfunction of bladder, unspecified; F32.A Depression, unspecified; F41.9 Anxiety disorder, unspecified; K59.09 Other constipation; Z93.6 Other artificial openings of urinary tract status; Z20.822 Contact with and (suspected) exposure to COVID-19; Z89.512 Acquired absence of left leg below knee; Z89.511 Acquired absence of right leg below knee; Z79.01 Long term (current) use of anticoagulants; Z79.899 Other long term (current) drug therapy
CPT/HCPCS: 36415; 71045; 80048; 80076; 83690; 83735; 83880; 84484; 85025; 87635; 93005; 96361; 96374; 96375; 99212; 99285; J1940

== ENCOUNTER 2022-08-16 10:01 | Inpatient (IN) | payer MEDICARE, MEDICAID, SELFPAY ==
[2022-08-16] VITALS (7 sets, daily range): BP systolic 114–147; BP diastolic 00–98; PULSE 78–136; RESP 14–20; TEMP 36.3–36.8; O2SAT 96–99; BMI 39.7
--- NOTE | 2022-08-16 | ECG_ITS ---
Test Reason : chest pain Blood Pressure : / mmHG Vent. Rate : 133 BPM Atrial Rate : 133 BPM P-R Int : 136 ms QRS Dur : 090 ms QT Int : 306 ms P-R-T Axes : 089 042 170 degrees QTc Int : 455 ms Sinus tachycardia with occasional Premature ventricular complexes ST & T wave abnormality, consider anterior ischemia RSR' or QR pattern in V1 suggests right ventricular conduction delay T-wave inversion in Inferior leads Abnormal ECG Heart rate has increased Referred By: Generic ED Physician Electronically Signed By:ALIVIA NGO MD
--- NOTE | ~2022-08-16 | CT_ITS ---
EXAMINATION: CTA OF THE CHEST, ABDOMEN, AND PELVIS WITH AND WITHOUT CONTRAST CLINICAL INFORMATION: Atrial fibrillation, dyspnea. Aortic thrombus DESCRIPTION: Initial noncontrast localizing stage technician images were obtained. Subsequently, multidetector volumetric imaging was performed through the chest, abdomen, and pelvis following the administration of 85 mL Omnipaque 350 intravenous contrast. Timing was based off the main pulmonary artery for the chest and off abdominal aorta for the abdomen and pelvis. No contrast reaction reported Sagittal and coronal reformatted images were obtained on the technologist workstation. Sagittal, coronal, and oblique MIP images through the chest and coronal and sagittal MIP images through the abdomen and pelvis were obtained under concurrent supervision by a radiologist. This CT examination was performed using dose optimization techniques as appropriate, variously including the following: *Automated exposure control *Adjustment of mA and/or kV according to patient size (this includes techniques or standardized protocols for targeted exams where dose is matched to indication/reason for exam; i.e. extremities or head) *Use of iterative reconstruction technique Total exam dose-length product 1442+560 mGy-cm COMPARISON: Chest x-ray 07/13/2022. CT 11/03/2021 FINDINGS: QUALITY OF STUDY/CONTRAST BOLUS: There is contrast underfilling and motion artifact greatest at the lung bases. PULMONARY ARTERIES: No central pulmonary embolus. THORACIC AORTA: No aneurysm or dissection. LUNG: Motion artifact. Right greater than left base compressive atelectasis. Bilateral bronchial wall thickening particularly in the lower lobes. PLEURA: Small to moderate bilateral pleural effusions. MEDIASTINUM: Mild cardiomegaly. Small circumferential pericardial effusion. Three-vessel coronary artery calcification. No hilar or mediastinal lymphadenopathy. No evidence of septal bowing or right heart strain. CHEST WALL/AXILLA: No axillary or internal mammary lymphadenopathy. OSSEOUS STRUCTURES: No acute or suspicious osseous abnormality. ABDOMEN/PELVIS: LIVER, GALLBLADDER, AND BILIARY TREE: Nodular hepatic contour suggests underlying cirrhosis. No focal liver lesion. Gallbladder is distended but there is no pericholecystic fluid or gallbladder wall thickening. PANCREAS: Normal; no mass or surrounding fluid. SPLEEN: Normal size. No focal lesion. ADRENAL GLANDS: Normal; no mass. KIDNEYS AND URETERS: The kidneys are normal in size, shape, and attenuation. No hydronephrosis, hydroureter, or calculi. GASTROINTESTINAL TRACT: Stomach collapsed. Small bowel nondilated. Normal appendix. Scattered colonic diverticulosis without evidence of colitis or diverticulitis. ABDOMINAL WALL: Fat-containing umbilical hernia. LYMPHOVASCULAR STRUCTURES: Calcified and noncalcified atherosclerotic changes are seen throughout the aorta. Again noted is an infrarenal abdominal aortic aneurysm measuring at most 3.4 x 3.4 cm, smaller than prior study. Again seen is narrowing at the origin of the celiac artery although it continues to opacify. There is a large trunk of the superior mesenteric artery which is widely patent. Replaced right hepatic artery from the SMA again noted. Inferior mesenteric artery is again noted to opacify. BLADDER: Severe circumferential wall thickening of the urinary bladder. A suprapubic tube is in place. There is contrast in the urinary bladder. Right posterior bladder diverticulum. PELVIC VISCERA: The prostate and seminal vesicles are normal. OSSEOUS STRUCTURES: Multilevel degenerative disc disease of the lumbar spine. 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 No acute or suspicious osseous abnormality. CT/CT angio chest PE protocol IMPRESSION: There is irregular wall thickening of the collapsed urinary bladder. Cystitis or a mass could give this appearance. Recommend correlation with urinalysis and cystoscopy as clinically indicated. Limited study but no pulmonary embolus seen. Small to moderate bilateral pleural effusions and associated bibasilar atelectasis are new since the CT 11/03/2021. Infrarenal abdominal aortic aneurysm measures smaller than on prior studies. Narrowing of the celiac artery but it continues to opacify. Superior mesenteric and inferior mesenteric arteries opacify normally.
--- NOTE | ~2022-08-16 | XR_ITS ---
EXAMINATION: XR CHEST CLINICAL INFORMATION: Cough COMPARISON: 07/13/2022 TECHNIQUE: Frontal view of the chest was obtained. FINDINGS: Lungs grossly clear. Minimal blunting of the right costophrenic sulcus unchanged. Mild to moderate cardiomegaly with normal caliber pulmonary vessels. There are degenerative changes in both shoulder joints. XR/XR chest 1V IMPRESSION: Stable findings with no active disease.
--- NOTE | ~2022-08-16 | CT_ITS ---
EXAMINATION: CT HEAD WITHOUT CONTRAST CLINICAL INFORMATION: 87-year-old male with questionable right facial droop and slurred speech. COMPARISON: None TECHNIQUE: Contiguous axial imaging was performed from the skull base to vertex without intravenous administration of contrast. This CT examination was performed using dose optimization techniques as appropriate, variously including the following: *Automated exposure control *Adjustment of mA and/or kV according to patient size (this includes techniques or standardized protocols for targeted exams where dose is matched to indication/reason for exam; i.e. extremities or head) *Use of iterative reconstruction technique DLP: 815 mGy-cm FINDINGS: No acute findings. No intracranial hemorrhage, extra-axial fluid collection, focal mass effect or midline shift. Atherosclerotic calcification of vertebral and cavernous carotid arteries. The patchy and confluent hypoattenuation within supratentorial white matter is compatible with sequela of chronic microangiopathy. The pantoja-white matter differentiation is maintained. No evidence of an acute major vascular territory infarction. Moderate parenchymal volume loss with commensurate prominence of the ventricles and sulci; no hydrocephalus. The cerebellar tonsils are in normal position. Minimal mucus is seen at the anterior wall of the right maxillary sinus. Otherwise, the paranasal sinuses and mastoid air cells are well aerated. No acute intraorbital pathology. The temporomandibular joints are normal. CT/CT head/brain wo IV con IMPRESSION: * No hemorrhage or other acute intracranial pathology. * Chronic moderate volume loss and chronic small vessel ischemic changes of the supratentorial white matter
--- NOTE | 2022-08-16 10:45 | ED_ITS ---
HPI - Chest Pain General Chief Complaint: Chest Pain Stated Complaint: CP,INC CONF,NAUSEA,VOMITING PER FAM Time Seen by Provider: 08/16/22 10:32 Source: patient, family and old records reviewed History of Present Illness HPI narrative: Patient brought in by ambulance. Visiting nurse found patient today to be tachycardic. He has had a cough for the last several days which is a new complaint. He has a history of urostomy. His last hospitalization was 1 month ago for atrial flutter and atrial fibrillation. Rate was controlled and he was discharged home apparently in sinus rhythm. He states he has had palpitations since yesterday. Cough with yellow phlegm. No fevers or chills. No sick contacts that he knows of. No nausea or vomiting. No chest pain but does have palpitations. This does feel similar to when he was hospitalized last time except the cough is new. Related Data Home Medications Medication Instructions Recorded Confirmed docusate sodium 100 mg capsule 100 mg PO DAILY PRN Constipation 05/29/22 08/15/22 gabapentin 100 mg capsule 100 mg PO TID 08/15/22 08/16/22 Previous Rx's Medication Instructions Recorded drainage bag 2,000 mL (Kenguard #1 ea 10/20/21 Urinary Drain Bag) apixaban 5 mg tablet (Eliquis) 5 mg PO BID #180 tabs 03/09/22 metoprolol succinate 25 mg 25 mg PO DAILY #90 tabs 03/09/22 tablet,extended release 24 hr (Toprol XL) polyethylene glycol 3350 17 gram 17 g PO DAILY PRN constipation #30 03/21/22 oral powder packet (Miralax) hospital bed #1 ea 05/05/22 aspirin 81 mg tablet,delayed 81 mg PO DAILY 90 days #90 tabs 08/15/22 release atorvastatin 40 mg tablet 40 mg PO DAILY 90 days #90 tabs 08/15/22 diltiazem HCl 240 mg 240 mg PO DAILY 90 days #90 caps 08/15/22 capsule,extended release 24 hr (Cardizem CD) duloxetine 30 mg capsule,delayed 30 mg PO QAM 30 days #30 caps 08/15/22 release furosemide 20 mg tablet (Lasix) 20 mg PO DAILY 30 days #30 tabs 08/15/22 mirtazapine 7.5 mg tablet 7.5 mg PO BEDTIME 30 days #30 tabs 08/15/22 Allergies Allergy/AdvReac Type Severity Reaction Status Date / Time No Known Allergies Allergy Verified 08/15/22 15:24 Review of Systems 2 Constitutional: Comments: No fevers or chills Cardiovascular: Comments: Palpitations Respiratory: Comments: Cough with sputum. No dyspnea Gastrointestinal: Comments: No abdominal pain or nausea or vomiting Musculoskeletal: Comments: No musculoskeletal complaints Integumentary/Breasts: Comments: No rash Neurologic: Comments: No focal weakness PMFSH Past Medical History Medical History Atherosclerotic cardiovascular disease BPH (benign prostatic hyperplasia) COVID-19 vaccine series completed Depression GERD (gastroesophageal reflux disease) Hypertension Peripheral vascular disease Urinary retention Surgical History H/O colonoscopy History of below-knee amputation of both lower extremities History of bladder surgery Family History Family History Father Colon cancer Mother Asthma Son HTN (hypertension) Social History Social History Housing: House Housing Other:: 2 family home-son & DIL 2nd floor Are you a primary rn complex care to a significant other at home: No Do you presently have visiting nurse or other home services: No Alcohol intake: never Patient Tobacco Use Status: Never used Tobacco Smoked in Last 30 Days: No e-Cigarette/Vaping Use: Never Used Second Hand Smoke Exposure: No Use of substances other than those prescribed or required for medical reasons: No Advance Directives: No service: No Current occupational status: disabled Cognitive needs: No Hearing needs: Yes Vision needs: Yes Physical Exam Vital Signs: Vital Signs: Last Vital Signs Temp 97.3 F 08/16/22 13:15 Pulse 131 H 08/16/22 15:11 Resp 14 08/16/22 15:11 BP 135/85 08/16/22 15:11 Pulse Ox 97 08/16/22 15:11 O2 Del Method 08/16/22 15:11 BMI result Body Mass Index 39.7 Const: Other: Awake and alert. No acute distress. Tachycardic Resp: Other: Diminished but clear bilaterally Cardio: Other: Tachycardic at approximately 130 beats per minute. Regular. No obvious murmurs rubs or gallops GI: Other: Soft nontender nondistended Skin: Other: Warm pink and dry Neuro: Other: No obvious acute focal neuro deficits Course Course Course Narrative: Tachycardic at 130 likely a repeat episode of atrial flutter. Will treat with IV diltiazem. Cough with sputum which is a new symptom. Pneumonia versus bronchitis verses upper respiratory viral syndrome. IV fluid ordered. Weight respiratory panel and chest x-ray. Heart rate is likely primary dysrhythmia. No current evidence for sepsis at t his time, 10:54. 16:30. CT scan of chest and abdomen show no evidence of pulmonary embolism or acute pathology. He has an infrarenal abdominal aortic aneurysm that appears slightly smaller than prior studies. No evidence of rupture or acute change. Urinalysis does show urinary tract infection. Treated with ceftriaxone. His heart rate is improving and is now approximately 100 beats per minute in atrial fibrillation. His blood pressure has remained stable throughout. He is on a diltiazem drip currently. Will hospitalized for further monitoring Medications Administered Generic Name Dose Route Start Last Admin Trade Name Freq PRN Reason Stop Dose Admin Diltiazem HCl 125 mg/ Sodium 125 mls @ 0 mls/hr 08/16/22 13:30 08/16/22 15:12 Chloride IVCONT 10 mg/hr .Q0M MATTHEW 10 mls/hr Administration Protocol Per Protocol Discontinued Medications Generic Name Dose Route Start Last Admin Trade Name Freq PRN Reason Stop Dose Admin Diltiazem HCl 10 mg 08/16/22 10:45 08/16/22 12:22 Diltiazem Hcl 50 Mg/10 Ml Vial IVPUSH 08/16/22 10:46 10 mg STAT STA Administration Diltiazem HCl 10 mg 08/16/22 13:25 08/16/22 14:16 Diltiazem Hcl 50 Mg/10 Ml Vial IVPUSH 08/16/22 13:26 10 mg STAT STA Administration Diltiazem HCl 20 mg 08/16/22 14:02 08/16/22 15:11 Diltiazem Hcl 50 Mg/10 Ml Vial IVPUSH 08/16/22 14:03 20 mg STAT STA Administration Sodium Chloride 500 mls @ 500 mls/hr 08/16/22 10:45 08/16/22 14:07 Ns IV 08/16/22 11:44 Infused .Q1H MATTHEW Infusion Ceftriaxone Sodium 1 gm/ 50 mls @ 100 mls/hr 08/16/22 15:33 08/16/22 16:18 Sodium Chloride IV 08/16/22 16:02 100 mls/hr ONCE ONE Administration Iohexol 100 ml 08/16/22 15:24 08/16/22 15:25 Iohexol 350 Mg/Ml 100 Ml Infus..Btl IV 08/16/22 15:25 65 ml ONCE ONE Administration Iohexol 100 ml 08/16/22 15:32 08/16/22 15:32 Iohexol 350 Mg/Ml 100 Ml Infus..Btl IV 08/16/22 15:33 85 ml ONCE ONE Administration MDM - Chest Pain Lab Data Result diagrams: 08/16/22 12:52 08/16/22 12:52 Labs: Lab Results 08/16/22 08/16/22 08/16/22 Range/Units 11:26 12:51 12:51 WBC (4.8-10.8) X10*3/uL RBC (4.60-5.80) X10*6/uL Hgb (14.0-18.0) g/dl Hct (42.0-52.0) % MCV (80.0-98.0) fL MCH (27.0-33.0) pg MCHC (31.0-36.0) g/dl RDW (11.0-16.0) % Plt Count (160-400) X10*3/uL MPV (9.4-12.4) fL Immature Gran % (Auto) (0.0-0.4) % Neut % (Auto) (45-73) % Lymph % (Auto) (20-40) % [place] % (Auto) (2-11) % Eos % (Auto) (0-4) % Baso % (Auto) (0-2) % Lymph # (Auto) (1.2-4.9) X10*3/uL [place] # (Auto) (0.1-1.2) X10*3/uL Eos # (Auto) (0.0-0.4) X10*3/uL Baso # (Auto) (0.0-0.2) X10*3/uL Abs Immat Gran (auto) (0.00-0.03) X10*3/uL Absolute Neuts (auto) (2.0-8.3) x10*3/uL Absolute Nucleated RBC (0.0-0.012) X10*3/uL Nucleated RBC % (auto) (0.0-0.2) /100WBC PT (10.0-13.1) SEC INR (0.9-1.1) D-Dimer High Sensitivty NG/ML Sodium (135-145) mmol/L Potassium (3.3-5.1) mmol/L Chloride (96-108) mmol/L Carbon Dioxide (22-29) mmol/L Anion Gap (12-20) BUN (9-16) mg/dL Creatinine (0.5-1.4) mg/dL Estim Creat Clear Calc Estimated GFR Random Glucose (60-115) mg/dL Lactic Acid 1.9 (0.5-2.0) mmol/L Calcium (8.4-10.2) mg/dL Total Bilirubin (0.0-1.0) mg/dL AST (5-37) U/L ALT (0-40) U/L Alkaline Phosphatase (39-117) U/L Troponin I High Sens 22.4 D (<3.5-35.0) ng/L B-Natriuretic Peptide 518 H (<100) pg/mL Total Protein (6.5-8.0) g/dL Albumin (3.5-5.0) g/dL Urine Color Urine Appearance Urine pH (5.0-9.0) Ur Specific [place] (1.005-1.025) Urine Protein (Neg-Trace) mg/dL Urine Glucose (UA) (Negative) mg/dL Urine Ketones (Negative) mg/dL Urine Blood (Negative) Urine Nitrite (Negative) Ur Leukocyte Esterase (Negative) Urine RBC (0-2) /HPF Urine WBC (0-5) /HPF Urine WBC Clumps Ur Squamous Epith Cells (0-2) /HPF Other Crystals Urine Bacteria (None Seen) Hyaline Casts (0-2) /LPF Respiratory Panel Melara See Note Adenovirus (Rapid PCR) Not Detected (Not Detect.) B.pert (TEM-PCR) Not Detected (Not Detect.) B.parapertussis DNA PCR Not Detected (Not Detect.) C. pneumoniae DNA (PCR) Not Detected (Not Detect.) Coronavirus OC43 (PCR) Not Detected (Not Detect.) Coronavirus HKU1 (PCR) Not Detected (Not Detect.) Coronavirus 229E (PCR) Not Detected (Not Detect.) Coronavirus NL63 (PCR) Not Detected (Not Detect.) Human Metapneumovir PCR Not Detected (Not Detect.) Influenza A (RT-PCR) Not Detected (Not Detect.) Influenza B (RT-PCR) Not Detected (Not Detect.) M. pneumoniae (PCR) Not Detected (Not Detect.) Parainfluenza 1 (PCR) Not Detected (Not Detect.) Parainfluenza 2 (PCR) Not Detected (Not Detect.) Parainfluenza 3 (PCR) Not Detected (Not Detect.) Parainfluenza 4 (PCR) Not Detected (Not Detect.) RSV (PCR) Not Detected (Not Detect.) Entero/Rhino (PCR) Not Detected (Not Detect.) SARS-CoV-2 RNA (RT-PCR) Not Detected (Not Detect.) 08/16/22 08/16/22 08/16/22 Range/Units 12:52 12:52 12:52 WBC 12.3 H (4.8-10.8) X10*3/uL RBC 4.40 L (4.60-5.80) X10*6/uL Hgb 14.0 (14.0-18.0) g/dl Hct 41.3 L (42.0-52.0) % MCV 93.9 (80.0-98.0) fL MCH 31.8 (27.0-33.0) pg MCHC 33.9 (31.0-36.0) g/dl RDW 15.0 (11.0-16.0) % Plt Count 319 (160-400) X10*3/uL MPV 8.8 L (9.4-12.4) fL Immature Gran % (Auto) 0.6 H (0.0-0.4) % Neut % (Auto) 78.6 H (45-73) % Lymph % (Auto) 12.0 L (20-40) % [place] % (Auto) 8.3 (2-11) % Eos % (Auto) 0.2 (0-4) % Baso % (Auto) 0.3 (0-2) % Lymph # (Auto) 1.5 (1.2-4.9) X10*3/uL [place] # (Auto) 1.0 (0.1-1.2) X10*3/uL Eos # (Auto) 0.0 (0.0-0.4) X10*3/uL Baso # (Auto) 0.0 (0.0-0.2) X10*3/uL Abs Immat Gran (auto) 0.07 H (0.00-0.03) X10*3/uL Absolute Neuts (auto) 9.7 H (2.0-8.3) x10*3/uL Absolute Nucleated RBC 0.000 (0.0-0.012) X10*3/uL Nucleated RBC % (auto) 0.0 (0.0-0.2) /100WBC PT 13.5 H (10.0-13.1) SEC INR 1.2 H (0.9-1.1) D-Dimer High Sensitivty 451 NG/ML Sodium 140 (135-145) mmol/L Potassium 4.3 (3.3-5.1) mmol/L Chloride 105 (96-108) mmol/L Carbon Dioxide 26 (22-29) mmol/L Anion Gap 13 (12-20) BUN 17 H (9-16) mg/dL Creatinine 1.00 (0.5-1.4) mg/dL Estim Creat Clear Calc 43.2 Estimated GFR > 60 Random Glucose 116 H (60-115) mg/dL Lactic Acid (0.5-2.0) mmol/L Calcium 8.7 (8.4-10.2) mg/dL Total Bilirubin 1.3 H (0.0-1.0) mg/dL AST 22 (5-37) U/L ALT 15 (0-40) U/L Alkaline Phosphatase 183 H (39-117) U/L Troponin I High Sens (<3.5-35.0) ng/L B-Natriuretic Peptide (<100) pg/mL Total Protein 5.6 L (6.5-8.0) g/dL Albumin 3.1 L (3.5-5.0) g/dL Urine Color Urine Appearance Urine pH (5.0-9.0) Ur Specific [place] (1.005-1.025) Urine Protein (Neg-Trace) mg/dL Urine Glucose (UA) (Negative) mg/dL Urine Ketones (Negative) mg/dL Urine Blood (Negative) Urine Nitrite (Negative) Ur Leukocyte Esterase (Negative) Urine RBC (0-2) /HPF Urine WBC (0-5) /HPF Urine WBC Clumps Ur Squamous Epith Cells (0-2) /HPF Other Crystals Urine Bacteria (None Seen) Hyaline Casts (0-2) /LPF Respiratory Panel [place] Adenovirus (Rapid PCR) (Not Detect.) B.pert (TEM-PCR) (Not Detect.) B.parapertussis DNA PCR (Not Detect.) C. pneumoniae DNA (PCR) (Not Detect.) Coronavirus OC43 (PCR) (Not Detect.) Coronavirus HKU1 (PCR) (Not Detect.) Coronavirus 229E (PCR) (Not Detect.) Coronavirus NL63 (PCR) (Not Detect.) Human Metapneumovir PCR (Not Detect.) Influenza A (RT-PCR) (Not Detect.) Influenza B (RT-PCR) (Not Detect.) M. pneumoniae (PCR) (Not Detect.) Parainfluenza 1 (PCR) (Not Detect.) Parainfluenza 2 (PCR) (Not Detect.) Parainfluenza 3 (PCR) (Not Detect.) Parainfluenza 4 (PCR) (Not Detect.) RSV (PCR) (Not Detect.) Entero/Rhino (PCR) (Not Detect.) SARS-CoV-2 RNA (RT-PCR) (Not Detect.) 08/16/22 Range/Units 15:17 WBC (4.8-10.8) X10*3/uL RBC (4.60-5.80) X10*6/uL Hgb (14.0-18.0) g/dl Hct (42.0-52.0) % MCV (80.0-98.0) fL MCH (27.0-33.0) pg MCHC (31.0-36.0) g/dl RDW (11.0-16.0) % Plt Count (160-400) X10*3/uL MPV (9.4-12.4) fL Immature Gran % (Auto) (0.0-0.4) % Neut % (Auto) (45-73) % Lymph % (Auto) (20-40) % [place] % (Auto) (2-11) % Eos % (Auto) (0-4) % Baso % (Auto) (0-2) % Lymph # (Auto) (1.2-4.9) X10*3/uL [place] # (Auto) (0.1-1.2) X10*3/uL Eos # (Auto) (0.0-0.4) X10*3/uL Baso # (Auto) (0.0-0.2) X10*3/uL Abs Immat Gran (auto) (0.00-0.03) X10*3/uL Absolute Neuts (auto) (2.0-8.3) x10*3/uL Absolute Nucleated RBC (0.0-0.012) X10*3/uL Nucleated RBC % (auto) (0.0-0.2) /100WBC PT (10.0-13.1) SEC INR (0.9-1.1) D-Dimer High Sensitivty NG/ML Sodium (135-145) mmol/L Potassium (3.3-5.1) mmol/L Chloride (96-108) mmol/L Carbon Dioxide (22-29) mmol/L Anion Gap (12-20) BUN (9-16) mg/dL Creatinine (0.5-1.4) mg/dL Estim Creat Clear Calc Estimated GFR Random Glucose (60-115) mg/dL Lactic Acid (0.5-2.0) mmol/L Calcium (8.4-10.2) mg/dL Total Bilirubin (0.0-1.0) mg/dL AST (5-37) U/L ALT (0-40) U/L Alkaline Phosphatase (39-117) U/L Troponin I High Sens (<3.5-35.0) ng/L B-Natriuretic Peptide (<100) pg/mL Total Protein (6.5-8.0) g/dL Albumin (3.5-5.0) g/dL Urine Color Yellow Urine Appearance Turbid Urine pH 5.5 (5.0-9.0) Ur Specific [place] >= 1.030 H (1.005-1.025) Urine Protein 30 (1+) H (Neg-Trace) mg/dL Urine Glucose (UA) Negative (Negative) mg/dL Urine Ketones Trace (Negative) mg/dL Urine Blood Moderate (2+) H (Negative) Urine Nitrite Positive H (Negative) Ur Leukocyte Esterase Large (3+) H (Negative) Urine RBC >20 H (0-2) /HPF Urine WBC >50 H (0-5) /HPF Urine WBC Clumps Present Ur Squamous Epith Cells 0-2 (0-2) /HPF Other Crystals Present Urine Bacteria 4+ (None Seen) Hyaline Casts 3-5 (0-2) /LPF Respiratory Panel [place] Adenovirus (Rapid PCR) (Not Detect.) B.pert (TEM-PCR) (Not Detect.) B.parapertussis DNA PCR (Not Detect.) C. pneumoniae DNA (PCR) (Not Detect.) Coronavirus OC43 (PCR) (Not Detect.) Coronavirus HKU1 (PCR) (Not Detect.) Coronavirus 229E (PCR) (Not Detect.) Coronavirus NL63 (PCR) (Not Detect.) Human Metapneumovir PCR (Not Detect.) Influenza A (RT-PCR) (Not Detect.) Influenza B (RT-PCR) (Not Detect.) M. pneumoniae (PCR) (Not Detect.) Parainfluenza 1 (PCR) (Not Detect.) Parainfluenza 2 (PCR) (Not Detect.) Parainfluenza 3 (PCR) (Not Detect.) Parainfluenza 4 (PCR) (Not Detect.) RSV (PCR) (Not Detect.) Entero/Rhino (PCR) (Not Detect.) SARS-CoV-2 RNA (RT-PCR) (Not Detect.) Discharge Plan Discharge Patient Disposition: Admitted As Inpatient Prescriptions: No Action (DME) hospital bed Kit See Rx Instructions .Route Qty: 1 0RF Rx Instructions: As directed polyethylene glycol 3350 [Miralax] 17 gram powder in packet 17 g PO DAILY PRN (Reason: constipation) Qty: 30 0RF gabapentin 100 mg capsule 100 mg PO TID duloxetine 30 mg capsule,delayed release(DR/EC) 30 mg PO QAM 30 Days Qty: 30 3RF mirtazapine 7.5 mg tablet 7.5 mg PO BEDTIME 30 Days Qty: 30 3RF atorvastatin 40 mg tablet 40 mg PO DAILY 90 Days Qty: 90 1RF diltiazem HCl [Cardizem CD] 240 mg capsule,extended release 24hr 240 mg PO DAILY 90 Days Qty: 90 1RF aspirin 81 mg tablet,delayed release (DR/EC) 81 mg PO DAILY 90 Days Qty: 90 1RF furosemide [Lasix] 20 mg tablet 20 mg PO DAILY 30 Days Qty: 30 3RF metoprolol succinate [Toprol XL] 25 mg tablet extended release 24 hr 25 mg PO DAILY Qty: 90 3RF Eliquis 5 mg tablet 5 mg PO BID Qty: 180 3RF (DME) Kenguard Urinary Drain Bag 2,000 mL misc See Rx Instructions .MEDSUPPLY Qty: 1 11RF Rx Instructions: As directed docusate sodium 100 mg capsule 100 mg PO DAILY PRN (Reason: Constipation)
[2022-08-16] MEDS: 0.9 % Sodium Chloride 500 ML IV (12:22)
[2022-08-16] MEDS: dilTIAZem HCL 50 MG/10 ML VIAL 10 MG IVPUSH ×2 (12:22→14:16)
[2022-08-16 12:33] LABS: Adenovirus PCR Not Detected (Not Detect.); Bordetella parapertussis PCR Not Detected (Not Detect.); Bordetella pertussis PCR Not Detected (Not Detect.); Chlamydia pneumoniae PCR Not Detected (Not Detect.); Coronavirus 229E PCR Not Detected (Not Detect.)
[2022-08-16 12:34] LABS: Coronavirus HKU1 PCR Not Detected (Not Detect.); Coronavirus NL63 PCR Not Detected (Not Detect.); Coronavirus OC43 PCR Not Detected (Not Detect.); Human metapneumovirus PCR Not Detected (Not Detect.); Influenza A PCR Not Detected (Not Detect.); Influenza B PCR Not Detected (Not Detect.); Mycoplasma pneumoniae PCR Not Detected (Not Detect.); Parainfluenza 1 PCR Not Detected (Not Detect.); Parainfluenza 2 PCR Not Detected (Not Detect.); Parainfluenza 3 PCR Not Detected (Not Detect.); Parainfluenza 4 PCR Not Detected (Not Detect.); RSV PCR Not Detected (Not Detect.); Rhino/Enterovirus PCR Not Detected (Not Detect.); SARS-CoV-2 PCR Not Detected (Not Detect.)
[2022-08-16 12:59] LABS: MANUAL DIFF FLAG NO
[2022-08-16 13:04] LABS: Basophils Percent Auto 0.3 % (0-2); Eosinophils Percent Auto 0.2 % (0-4); Hematocrit 41.3 % (42.0-52.0); Imm Gran Abs Auto 0.07 X10*3/uL (0.00-0.03); Imm Gran Pct Auto 0.6 % (0.0-0.4); Lymphocytes Absolute Auto 1.5 X10*3/uL (1.2-4.9); Mean Corpuscular HGB Conc 33.9 g/dl (31.0-36.0); Mean Corpuscular Hemoglobin 31.8 pg (27.0-33.0); Mean Corpuscular Volume 93.9 fL (80.0-98.0); Mean Platelet Volume 8.8 fL (9.4-12.4); Monocytes Percent Auto 8.3 % (2-11); Neutrophils Absolute Auto 9.7 x10*3/uL (2.0-8.3); Neutrophils Percent Auto 78.6 % (45-73); Platelet Count 319 X10*3/uL (160-400); White Blood Count 12.3 X10*3/uL (4.8-10.8)
[2022-08-16 13:08] LABS: INTERNATIONAL NORM RATIO 1.2 (0.9-1.1); Prothrombin Time 13.5 SEC (10.0-13.1)
[2022-08-16 13:10] LABS: D Dimer High Sensitivity 451 NG/ML
[2022-08-16 13:18] LABS: Lactic Acid 1.9 mmol/L (0.5-2.0)
[2022-08-16 13:24] LABS: Alanine Aminotransferase 15 U/L (0-40); Albumin Level 3.1 g/dL (3.5-5.0); Alkaline Phosphatase 183 U/L (39-117); Anion Gap 13 (12-20); Aspartate Amino Transferase 22 U/L (5-37); Bilirubin Total 1.3 mg/dL (0.0-1.0); Blood Urea Nitrogen 17 mg/dL (9-16); Calcium 8.7 mg/dL (8.4-10.2); Carbon Dioxide 26 mmol/L (22-29); Chloride 105 mmol/L (96-108); Creatinine Clr Calc Pharmacy 43.2; Estimated Glomerular Filt Rate > 60; Glucose Random 116 mg/dL (60-115); Potassium 4.3 mmol/L (3.3-5.1); Sodium 140 mmol/L (135-145); Total Protein 5.6 g/dL (6.5-8.0)
[2022-08-16 13:27] LABS: B Type Natriuretic Peptide 518 pg/mL (<100); Troponin-I High Sensitivity 22.4 ng/L (<3.5-35.0)
[2022-08-16] MEDS: dilTIAZem HCL 50 MG/10 ML VIAL 20 MG IVPUSH (15:11)
[2022-08-16] MEDS: dilTIAZem HCL 125 MG in 0.9 % Sodium Chloride 100 ML 10 MG IVCONT (15:12)
[2022-08-16] MEDS: iohexoL 350 MG/ML 100 ML INFUS..BTL IV ×2 (15:25→15:32)
[2022-08-16 15:27] LABS: Appearance Urine Turbid; Color Urine Yellow; Glucose Urine UA Negative (Negative); Leukocyte Esterase Urine Large (3+) (Negative); Nitrite Urine Positive (Negative); PH 5.5 (5.0-9.0); Specific Gravity - Urine >= 1.030 (1.005-1.025); UMIC TRIGGER UACC YES; Urine Blood Moderate (2+) (Negative); Urine Ketones Trace mg/dL (Negative); Urine Protein 30 (1+) mg/dL (Neg-Trace)
[2022-08-16 15:41] LABS: Bacteria Urine 4+ (None Seen); Other Crystals Urine Present; RBC Urine >20 /HPF (0-2); Squamous Epithelial Cell Urine 0-2 /HPF (0-2); UACC Culture Trigger YES; WBC Clumps Urine Present; WBC Urine >50 /HPF (0-5)
[2022-08-16] MEDS: cefTRIAXone sodium 1 GM in 0.9 % Sodium Chloride 50 ML IV (16:18)
--- NOTE | 2022-08-16 17:38 | PM.IMHP ---
History of Present Illness Date of Service: 08/16/22 Chief Complaint: n/v chest pain 87 year old male with history of paroxysmal atrial fibrillation/flutter on eliquis, CAD, PAD s/p b/l BKA, HTN, HLD, CKD stage 3, chronic constipation, s/p urostomy d/t neurogenic bladder and bladder outlet obstruction, and depression/anxiety was brought in by EMS after visiting RN found patient to be in rapid AFib. He had been having several days of cough, reports nausea vomiting, however patient does have dementia and this appears to be in inconsistent history. He does note palpitations. In ED found to be in rapid AFib. Also noted to have positive UA. Review of Systems Review of Systems: Constitutional: Denies fever, denies Chills Eyes: denies blurry vision ENT: denies sore throat CVS: palpitatoins Respiratory: Denies dyspnea GI: no abdominal pain : denies dysuria MSK: denies neck pain Skin: denies rash Neuro: denies specific motor weakness Psych: denies suicidal ideation Endocrine: denies heat/cold intolerance Hematologic: denies easy bleeding Allergy: denies hives [facility] Medical History Atherosclerotic cardiovascular disease BPH (benign prostatic hyperplasia) COVID-19 vaccine series completed Depression GERD (gastroesophageal reflux disease) Hypertension Peripheral vascular disease Urinary retention Family History Father Colon cancer Mother Asthma Son HTN (hypertension) Surgical History H/O colonoscopy History of below-knee amputation of both lower extremities History of bladder surgery Social History Housing: House Housing Other:: 2 family home-son & DIL 2nd floor Are you a primary health care specialist to a significant other at home: No Do you presently have visiting nurse or other home services: No Alcohol intake: never Patient Tobacco Use Status: Never used Tobacco Smoked in Last 30 Days: No e-Cigarette/Vaping Use: Never Used Second Hand Smoke Exposure: No Use of substances other than those prescribed or required for medical reasons: No Advance Directives: No service: No Current occupational status: disabled Cognitive needs: No Hearing needs: Yes Vision needs: Yes Meds Allergies Allergy/AdvReac Type Severity Reaction Status Date / Time No Known Allergies Allergy Verified 08/15/22 15:24 Active Medications: Current Medications Apixaban (Apixaban 5 Mg Tablet) 5 mg PO BID [facility] Atorvastatin Calcium (Atorvastatin Calcium 40 Mg Tablet) 40 mg PO DAILY [facility] Diltiazem HCl (Diltiazem Hcl Cd 240 Mg Cap.Er.Deg) 240 mg PO DAILY MATTHEW; Protocol Furosemide (Furosemide 20 Mg Tablet) 20 mg PO DAILY MATTHEW; Protocol Gabapentin (Gabapentin 100 Mg Capsule) 100 mg PO TID [facility] Diltiazem HCl 125 mg/ Sodium (Chloride) 125 mls @ 0 mls/hr IVCONT .Q0M MATTHEW; Protocol Last Admin: 08/16/22 15:12 Dose: 10 mg/hr, 10 mls/hr Ceftriaxone Sodium 1 gm/ (Sodium Chloride) 50 mls @ 100 mls/hr IV Q24H [facility]W Metoprolol Succinate (Metoprolol Succinate Er 25 Mg Tab.Er.24h) 25 mg PO DAILY [facility]THEW; Protocol Mirtazapine (Mirtazapine 7.5 Mg Tablet) 7.5 mg PO BEDTIME [facility] Sodium Chloride (0.9 % Sodium Chloride Flush 3 Ml Syringe) 3 ml IVFLUSH QSHIFT [facility] Home Medications Medication Instructions Recorded Confirmed Last Taken Type gabapentin 100 mg capsule 100 mg PO TID 08/15/22 08/16/22 Unknown History Physical Exam Vital Signs and Narrative: Vital Signs: Last Vital Signs Temp 97.9 F 08/16/22 16:32 Pulse 113 H 08/16/22 16:32 Resp 16 08/16/22 16:32 BP 126/82 08/16/22 16:32 Pulse Ox 96 08/16/22 16:32 O2 Del Method 08/16/22 16:32 BMI result Body Mass Index 39.7 General: no acute distress HEENT: atraumatic Neck: normal to visual inspection CVS: S1, S2, irregular, rapid Resp: CTA bilateral Chest: non tender GI: soft, non tender, non distended : no CVA tenderness Skin: no rashes Extremities: bilateral bka Neuro: Oriented X3, grossly intact Psych: cooperative Results Labs CBC and Chem 7: 08/16/22 12:52 08/16/22 12:52 Labs: Laboratory Results - last 24 hr 08/16/22 08/16/22 08/16/22 11:26 12:51 12:51 MCV MCH MCHC RDW Plt Count MPV Immature Gran % (Auto) Neut % (Auto) Lymph % (Auto) Orange % (Auto) Eos % (Auto) Baso % (Auto) Lymph # (Auto) Orange # (Auto) Eos # (Auto) Baso # (Auto) Abs Immat Gran (auto) Absolute Neuts (auto) Absolute Nucleated RBC Nucleated RBC % (auto) PT INR D-Dimer High Sensitivty Anion Gap Estim Creat Clear Calc Estimated GFR Random Glucose Lactic Acid 1.9 Calcium Total Bilirubin AST ALT Alkaline Phosphatase Troponin I High Sens 22.4 D B-Natriuretic Peptide 518 H Total Protein Albumin Urine Color Urine Appearance Urine pH Ur Specific [place] Urine Protein Urine Glucose (UA) Urine Ketones Urine Blood Urine Nitrite Ur Leukocyte Esterase Urine RBC Urine WBC Urine WBC Clumps Ur Squamous Epith Cells Other Crystals Urine Bacteria Hyaline Casts Respiratory Panel Melara See Note Adenovirus (Rapid PCR) Not Detected B.pert (TEM-PCR) Not Detected B.parapertussis DNA PCR Not Detected C. pneumoniae DNA (PCR) Not Detected Coronavirus OC43 (PCR) Not Detected Coronavirus HKU1 (PCR) Not Detected Coronavirus 229E (PCR) Not Detected Coronavirus NL63 (PCR) Not Detected Human Metapneumovir PCR Not Detected Influenza A (RT-PCR) Not Detected Influenza B (RT-PCR) Not Detected M. pneumoniae (PCR) Not Detected Parainfluenza 1 (PCR) Not Detected Parainfluenza 2 (PCR) Not Detected Parainfluenza 3 (PCR) Not Detected Parainfluenza 4 (PCR) Not Detected RSV (PCR) Not Detected Entero/Rhino (PCR) Not Detected SARS-CoV-2 RNA (RT-PCR) Not Detected 08/16/22 08/16/22 08/16/22 12:52 12:52 12:52 MCV 93.9 MCH 31.8 MCHC 33.9 RDW 15.0 Plt Count 319 MPV 8.8 L Immature Gran % (Auto) 0.6 H Neut % (Auto) 78.6 H Lymph % (Auto) 12.0 L Orange % (Auto) 8.3 Eos % (Auto) 0.2 Baso % (Auto) 0.3 Lymph # (Auto) 1.5 Orange # (Auto) 1.0 Eos # (Auto) 0.0 Baso # (Auto) 0.0 Abs Immat Gran (auto) 0.07 H Absolute Neuts (auto) 9.7 H Absolute Nucleated RBC 0.000 Nucleated RBC % (auto) 0.0 PT 13.5 H INR 1.2 H D-Dimer High Sensitivty 451 Anion Gap 13 Estim Creat Clear Calc 43.2 Estimated GFR > 60 Random Glucose 116 H Lactic Acid Calcium 8.7 Total Bilirubin 1.3 H AST 22 ALT 15 Alkaline Phosphatase 183 H Troponin I High Sens B-Natriuretic Peptide Total Protein 5.6 L Albumin 3.1 L Urine Color Urine Appearance Urine pH Ur Specific [place] Urine Protein Urine Glucose (UA) Urine Ketones Urine Blood Urine Nitrite Ur Leukocyte Esterase Urine RBC Urine WBC Urine WBC Clumps Ur Squamous Epith Cells Other Crystals Urine Bacteria Hyaline Casts Respiratory Panel Melara Adenovirus (Rapid PCR) B.pert (TEM-PCR) B.parapertussis DNA PCR C. pneumoniae DNA (PCR) Coronavirus OC43 (PCR) Coronavirus HKU1 (PCR) Coronavirus 229E (PCR) Coronavirus NL63 (PCR) Human Metapneumovir PCR Influenza A (RT-PCR) Influenza B (RT-PCR) M. pneumoniae (PCR) Parainfluenza 1 (PCR) Parainfluenza 2 (PCR) Parainfluenza 3 (PCR) Parainfluenza 4 (PCR) RSV (PCR) Entero/Rhino (PCR) SARS-CoV-2 RNA (RT-PCR) 08/16/22 15:17 MCV MCH MCHC RDW Plt Count MPV Immature Gran % (Auto) Neut % (Auto) Lymph % (Auto) Orange % (Auto) Eos % (Auto) Baso % (Auto) Lymph # (Auto) Orange # (Auto) Eos # (Auto) Baso # (Auto) Abs Immat Gran (auto) Absolute Neuts (auto) Absolute Nucleated RBC Nucleated RBC % (auto) PT INR D-Dimer High Sensitivty Anion Gap Estim Creat Clear Calc Estimated GFR Random Glucose Lactic Acid Calcium Total Bilirubin AST ALT Alkaline Phosphatase Troponin I High Sens B-Natriuretic Peptide Total Protein Albumin Urine Color Yellow Urine Appearance Turbid Urine pH 5.5 Ur Specific [place] >= 1.030 H Urine Protein 30 (1+) H Urine Glucose (UA) Negative Urine Ketones Trace Urine Blood Moderate (2+) H Urine Nitrite Positive H Ur Leukocyte Esterase Large (3+) H Urine RBC >20 H Urine WBC >50 H Urine WBC Clumps Present Ur Squamous Epith Cells 0-2 Other Crystals Present Urine Bacteria 4+ Hyaline Casts 3-5 Respiratory Panel Melara Adenovirus (Rapid PCR) B.pert (TEM-PCR) B.parapertussis DNA PCR C. pneumoniae DNA (PCR) Coronavirus OC43 (PCR) Coronavirus HKU1 (PCR) Coronavirus 229E (PCR) Coronavirus NL63 (PCR) Human Metapneumovir PCR Influenza A (RT-PCR) Influenza B (RT-PCR) M. pneumoniae (PCR) Parainfluenza 1 (PCR) Parainfluenza 2 (PCR) Parainfluenza 3 (PCR) Parainfluenza 4 (PCR) RSV (PCR) Entero/Rhino (PCR) SARS-CoV-2 RNA (RT-PCR) Imaging Radiologist's Impressions: Impressions Chest X-Ray 08/16/22 11:00 IMPRESSION: Stable findings with no active disease. Chest CTA 08/16/22 15:23 IMPRESSION: There is irregular wall thickening of the collapsed urinary bladder. Cystitis or a mass could give this appearance. Recommend correlation with urinalysis and cystoscopy as clinically indicated. Limited study but no pulmonary embolus seen. Small to moderate bilateral pleural effusions and associated bibasilar atelectasis are new since the CT 11/03/2021. Infrarenal abdominal aortic aneurysm measures smaller than on prior studies. Narrowing of the celiac artery but it continues to opacify. Superior mesenteric and inferior mesenteric arteries opacify normally. Abdomen/Pelvis CTA 08/16/22 15:30 IMPRESSION: There is irregular wall thickening of the collapsed urinary bladder. Cystitis or a mass could give this appearance. Recommend correlation with urinalysis and cystoscopy as clinically indicated. Limited study but no pulmonary embolus seen. Small to moderate bilateral pleural effusions and associated bibasilar atelectasis are new since the CT 11/03/2021. Infrarenal abdominal aortic aneurysm measures smaller than on prior studies. Narrowing of the celiac artery but it continues to opacify. Superior mesenteric and inferior mesenteric arteries opacify normally. Assessment and Plan (1) Atrial fibrillation/flutter: Status: Acute Plan 87 year old male with history of paroxysmal atrial fibrillation/flutter on eliquis, CAD, PAD s/p b/l BKA, HTN, HLD, , chronic constipation, s/p urostomy d/t neurogenic bladder and bladder outlet obstruction, and depression/anxiety presented with afib with rvr pafib with rvr cardizem infusion cardizem and metoprolol po, eliquis cardio eval CAD, PVD, s/p bilateral bka eliquis statin positive ua and urostomy ?signficance, empiric rocpehin, follow up cultures dvt prophylaxis - eliquis full code patient with rapid afib requiring iv continuous infusion, high risk for adverse outcomes due to advanced age, frailty, therrefore, expected to require atleast 2 midnights inpatient. Quality Stroke Does the patient have a stroke diagnosis?: No VTE Prior VTE?: No VTE Risk Level:: Medical - moderate - high VTE Device Contraindication: Treatment Not Indicated VTE Drug Contraindication: N/A - Med Ordered
--- NOTE | 2022-08-16 17:44 | PHA.MEDREC ---
Pharmacy Consult ? Medication Reconciliation Pharmacy has completed the medication reconciliation. Checked med rec done by nurse
--- NOTE | 2022-08-16 20:24 | PC.NURSE ---
Nurse to nurse report given to [facility] RN. Patient to be transported to room 454 by jasmeet Mario.
[2022-08-16] MEDS: Gabapentin 100 MG CAPSULE PO (21:41)
[2022-08-16] MEDS: 0.9 % Sodium Chloride Flush 3 ML SYRINGE IVFLUSH ×2 (21:41→22:49)
[2022-08-16] MEDS: Mirtazapine 7.5 MG TABLET PO (21:41)
[2022-08-16] MEDS: Apixaban 5 MG TABLET PO (21:41)
[2022-08-16] MEDS: Acetaminophen 325 MG TABLET 650 MG PO (22:52)
[2022-08-17] VITALS (7 sets, daily range): BP systolic 118–145; BP diastolic 57–82; PULSE 66–130; RESP 16–20; TEMP 36.4–37.1; O2SAT 93–97
[2022-08-17] MEDS: dilTIAZem HCL 125 MG in 0.9 % Sodium Chloride 100 ML 15 MG IVCONT (02:34)
[2022-08-17 06:54] LABS: Hematocrit 43.8 % (42.0-52.0); Hemoglobin 14.6 g/dl (14.0-18.0); Mean Corpuscular HGB Conc 33.3 g/dl (31.0-36.0); Mean Corpuscular Hemoglobin 30.9 pg (27.0-33.0); Mean Corpuscular Volume 92.6 fL (80.0-98.0); Mean Platelet Volume 9.7 fL (9.4-12.4); Platelet Count 284 X10*3/uL (160-400); Red Blood Count 4.73 X10*6/uL (4.60-5.80); White Blood Count 12.2 X10*3/uL (4.8-10.8)
[2022-08-17 07:10] LABS: Anion Gap 16 (12-20); Blood Urea Nitrogen 14 mg/dL (9-16); Calcium 8.7 mg/dL (8.4-10.2); Carbon Dioxide 19 mmol/L (22-29); Chloride 108 mmol/L (96-108); Estimated Glomerular Filt Rate > 60; Glucose Fasting 70 mg/dL (60-99); Potassium 4.2 mmol/L (3.3-5.1); Sodium 139 mmol/L (135-145)
[2022-08-17] MEDS: Atorvastatin Calcium 40 MG TABLET PO (08:20)
[2022-08-17] MEDS: Gabapentin 100 MG CAPSULE PO ×3 (08:20→20:30)
[2022-08-17] MEDS: Metoprolol Succinate ER 25 MG TAB.ER.24H PO (08:20)
[2022-08-17] MEDS: Furosemide 20 MG TABLET PO (08:20)
[2022-08-17] MEDS: Apixaban 5 MG TABLET PO ×2 (08:20→20:30)
[2022-08-17] MEDS: dilTIAZem HCL CD 240 MG CAP.ER.DEG PO (08:20)
--- NOTE | 2022-08-17 10:04 | P.PNIM_ITS ---
Subjective Subjective Date of Service: 08/17/22 Interval History: cc: tachy interval history:feels better Cardiovascular Cardiovascular: Reports no additional cardiovascular complaints Respiratory Respiratory: Reports no additional respiratory complaints Physical Exam Vital Signs: Vital Signs: Last Vital Signs Temp 98.8 F 08/17/22 07:28 Pulse 99 08/17/22 07:28 Resp 20 08/17/22 07:28 BP 118/62 08/17/22 07:28 Pulse Ox 96 08/17/22 07:28 O2 Del Method 08/17/22 07:28 BMI result Body Mass Index 39.7 General: AO X 3, no acute distress Resp: CTA bilateral, no accessory muscles used CVS: S1,S2, irregular GI: soft, non tender, non distended Neuro: motor grossly intact, alert Psych: appropriate affect, appropriate insight Objective Data Active Medications Acetaminophen (Acetaminophen 325 Mg Tablet) 650 mg PO Q6H PRN PRN Reason: Pain, Mild (Pain Scale 1-3) Last Admin: 08/16/22 22:52 Dose: 650 mg Documented By: KAIA Apixaban (Apixaban 5 Mg Tablet) 5 mg PO BID [facility] Last Admin: 08/17/22 08:20 Dose: 5 mg Documented By: MARK Atorvastatin Calcium (Atorvastatin Calcium 40 Mg Tablet) 40 mg PO DAILY [facility] Last Admin: 08/17/22 08:20 Dose: 40 mg Documented By: MARK Diltiazem HCl (Diltiazem Hcl Cd 240 Mg Cap.Er.Deg) 240 mg PO DAILY [facility]; Protocol Last Admin: 08/17/22 08:20 Dose: 240 mg Documented By: MARK Furosemide (Furosemide 20 Mg Tablet) 20 mg PO DAILY [facility]; Protocol Last Admin: 08/17/22 08:20 Dose: 20 mg Documented By: MARK Gabapentin (Gabapentin 100 Mg Capsule) 100 mg PO TID [facility] Last Admin: 08/17/22 08:20 Dose: 100 mg Documented By: MARK Ceftriaxone Sodium 1 gm/ (Sodium Chloride) 50 mls @ 100 mls/hr IV Q24H [facility] Metoprolol Succinate (Metoprolol Succinate Er 25 Mg Tab.Er.24h) 25 mg PO DAILY [facility]; Protocol Last Admin: 08/17/22 08:20 Dose: 25 mg Documented By: HO.GUILMAT Mirtazapine (Mirtazapine 7.5 Mg Tablet) 7.5 mg PO BEDTIME [facility] Last Admin: 08/16/22 21:41 Dose: 7.5 mg Documented By: KAIA Sodium Chloride (0.9 % Sodium Chloride Flush 3 Ml Syringe) 3 ml IVFLUSH QSHIFT [facility] Last Admin: 08/16/22 22:49 Dose: 3 ml Documented By: KAIA Labs CBC & Chem 7: 08/17/22 06:19 08/17/22 06:19 Labs: Laboratory Results - last 24 hr 08/16/22 08/16/22 08/16/22 11:26 12:51 12:51 MCV MCH MCHC RDW Plt Count MPV Immature Gran % (Auto) Neut % (Auto) Lymph % (Auto) Bartholomew % (Auto) Eos % (Auto) Baso % (Auto) Lymph # (Auto) Bartholomew # (Auto) Eos # (Auto) Baso # (Auto) Abs Immat Gran (auto) Absolute Neuts (auto) Absolute Nucleated RBC Nucleated RBC % (auto) PT INR D-Dimer High Sensitivty Anion Gap Estim Creat Clear Calc Estimated GFR Random Glucose Fasting Glucose Lactic Acid 1.9 Calcium Total Bilirubin AST ALT Alkaline Phosphatase Troponin I High Sens 22.4 D B-Natriuretic Peptide 518 H Total Protein Albumin Urine Color Urine Appearance Urine pH Ur Specific [place] Urine Protein Urine Glucose (UA) Urine Ketones Urine Blood Urine Nitrite Ur Leukocyte Esterase Urine RBC Urine WBC Urine WBC Clumps Ur Squamous Epith Cells Other Crystals Urine Bacteria Hyaline Casts Respiratory Panel Melara See Note Adenovirus (Rapid PCR) Not Detected B.pert (TEM-PCR) Not Detected B.parapertussis DNA PCR Not Detected C. pneumoniae DNA (PCR) Not Detected Coronavirus OC43 (PCR) Not Detected Coronavirus HKU1 (PCR) Not Detected Coronavirus 229E (PCR) Not Detected Coronavirus NL63 (PCR) Not Detected Human Metapneumovir PCR Not Detected Influenza A (RT-PCR) Not Detected Influenza B (RT-PCR) Not Detected M. pneumoniae (PCR) Not Detected Parainfluenza 1 (PCR) Not Detected Parainfluenza 2 (PCR) Not Detected Parainfluenza 3 (PCR) Not Detected Parainfluenza 4 (PCR) Not Detected RSV (PCR) Not Detected Entero/Rhino (PCR) Not Detected SARS-CoV-2 RNA (RT-PCR) Not Detected 08/16/22 08/16/22 08/16/22 12:52 12:52 12:52 MCV 93.9 MCH 31.8 MCHC 33.9 RDW 15.0 Plt Count 319 MPV 8.8 L Immature Gran % (Auto) 0.6 H Neut % (Auto) 78.6 H Lymph % (Auto) 12.0 L Bartholomew % (Auto) 8.3 Eos % (Auto) 0.2 Baso % (Auto) 0.3 Lymph # (Auto) 1.5 Bartholomew # (Auto) 1.0 Eos # (Auto) 0.0 Baso # (Auto) 0.0 Abs Immat Gran (auto) 0.07 H Absolute Neuts (auto) 9.7 H Absolute Nucleated RBC 0.000 Nucleated RBC % (auto) 0.0 PT 13.5 H INR 1.2 H D-Dimer High Sensitivty 451 Anion Gap 13 Estim Creat Clear Calc 43.2 Estimated GFR > 60 Random Glucose 116 H Fasting Glucose Lactic Acid Calcium 8.7 Total Bilirubin 1.3 H AST 22 ALT 15 Alkaline Phosphatase 183 H Troponin I High Sens B-Natriuretic Peptide Total Protein 5.6 L Albumin 3.1 L Urine Color Urine Appearance Urine pH Ur Specific [place] Urine Protein Urine Glucose (UA) Urine Ketones Urine Blood Urine Nitrite Ur Leukocyte Esterase Urine RBC Urine WBC Urine WBC Clumps Ur Squamous Epith Cells Other Crystals Urine Bacteria Hyaline Casts Respiratory Panel Melara Adenovirus (Rapid PCR) B.pert (TEM-PCR) B.parapertussis DNA PCR C. pneumoniae DNA (PCR) Coronavirus OC43 (PCR) Coronavirus HKU1 (PCR) Coronavirus 229E (PCR) Coronavirus NL63 (PCR) Human Metapneumovir PCR Influenza A (RT-PCR) Influenza B (RT-PCR) M. pneumoniae (PCR) Parainfluenza 1 (PCR) Parainfluenza 2 (PCR) Parainfluenza 3 (PCR) Parainfluenza 4 (PCR) RSV (PCR) Entero/Rhino (PCR) SARS-CoV-2 RNA (RT-PCR) 08/16/22 08/17/22 08/17/22 15:17 06:19 06:19 MCV 92.6 MCH 30.9 MCHC 33.3 RDW 15.0 Plt Count 284 MPV 9.7 Immature Gran % (Auto) Neut % (Auto) Lymph % (Auto) Bartholomew % (Auto) Eos % (Auto) Baso % (Auto) Lymph # (Auto) [place]w # (Auto) Eos # (Auto) Baso # (Auto) Abs Immat Gran (auto) Absolute Neuts (auto) Absolute Nucleated RBC 0.000 Nucleated RBC % (auto) 0.0 PT INR D-Dimer High Sensitivty Anion Gap 16 Estim Creat Clear Calc 47.0 Estimated GFR > 60 Random Glucose Fasting Glucose 70 Lactic Acid Calcium 8.7 Total Bilirubin AST ALT Alkaline Phosphatase Troponin I High Sens B-Natriuretic Peptide Total Protein Albumin Urine Color Yellow Urine Appearance Turbid Urine pH 5.5 Ur Specific [place] >= 1.030 H Urine Protein 30 (1+) H Urine Glucose (UA) Negative Urine Ketones Trace Urine Blood Moderate (2+) H Urine Nitrite Positive H Ur Leukocyte Esterase Large (3+) H Urine RBC >20 H Urine WBC >50 H Urine WBC Clumps Present Ur Squamous Epith Cells 0-2 Other Crystals Present Urine Bacteria 4+ Hyaline Casts 3-5 Respiratory Panel Melara Adenovirus (Rapid PCR) B.pert (TEM-PCR) B.parapertussis DNA PCR C. pneumoniae DNA (PCR) Coronavirus OC43 (PCR) Coronavirus HKU1 (PCR) Coronavirus 229E (PCR) Coronavirus NL63 (PCR) Human Metapneumovir PCR Influenza A (RT-PCR) Influenza B (RT-PCR) M. pneumoniae (PCR) Parainfluenza 1 (PCR) Parainfluenza 2 (PCR) Parainfluenza 3 (PCR) Parainfluenza 4 (PCR) RSV (PCR) Entero/Rhino (PCR) SARS-CoV-2 RNA (RT-PCR) Assessment and Plan (1) Atrial flutter with rapid ventricular response: Status: Acute (2) PAF (paroxysmal atrial fibrillation): Status: Acute Plan 87 year old male with history of paroxysmal atrial fibrillation/flutter on eliquis, CAD, PAD s/p b/l BKA, HTN, HLD, , chronic constipation, s/p urostomy d/t neurogenic bladder and bladder outlet obstruction, and depression/anxiety presented with afib with rvr pafib with rvr hr better controlled, dc cardizem drip cotninue cardizem and metoprolol po, eliquis cardio eval CAD, PVD, s/p bilateral bka eliquis statin positive ua and urostomy ?signficance, empiric rocpehin, follow up cultures dvt prophylaxis - eliquis full code reason for continued hospitalization:monitor from rate control offer IV cardizem Quality Stroke Does the patient have a stroke diagnosis?: No VTE Prior VTE?: No VTE Risk Level:: Medical - moderate - high VTE Device Contraindication: Treatment Not Indicated VTE Drug Contraindication: N/A - Med Ordered
--- NOTE | 2022-08-17 13:30 | PM.CNCAR ---
History of Present Illness History of Present Illness Date of Service: 08/17/22 Chief complaint: Afib Narrative: 87-year-old gentleman with background history of atrial flutter who has been on apixaban, diltiazem and metoprolol he is presenting mainly for confusion and has been diagnosed with UTI. He also was noted to have tachycardia. He is denying any palpitations. Denies chest pain or shortness of breath. As per the family he has been more confused. There is no documented diagnosis of dementia. The daughter added that he clearly was more confused as he came in. Has been on antibiotics at this stage. He is back on his home medications currently. Heart rate control is quite good currently. [facility]LY [facility] Past Medical History Medical History Atherosclerotic cardiovascular disease BPH (benign prostatic hyperplasia) COVID-19 vaccine series completed Depression GERD (gastroesophageal reflux disease) Hypertension Peripheral vascular disease Urinary retention Family History Family History Father Colon cancer Mother Asthma Son HTN (hypertension) Surgical History Surgical History H/O colonoscopy History of below-knee amputation of both lower extremities History of bladder surgery Social History Social History Household Members: Children Housing: Apartment Housing Other:: 2 family home-son & DIL 2nd floor Are you a primary career development associate to a significant other at home: No Do you presently have visiting nurse or other home services: Yes Alcohol intake: never Patient Tobacco Use Status: Never used Tobacco Smoked in Last 30 Days: No e-Cigarette/Vaping Use: Never Used Second Hand Smoke Exposure: No Use of substances other than those prescribed or required for medical reasons: No Currently Displaying Signs/Symptoms of Drug Intoxication Withdrawal: No Have you been hit, kicked, punched, or otherwise hurt by someone within the past year? If so, by whom?: No Do you feel safe in your current relationship?: No Current Relationship Is there a partner from a previous relationship who is making you feel unsafe now?: No Are you made to feel afraid or neglected: No Advance Directives: No Do you have thoughts of harming others: None Do you have a plan to hurt others: No Plan Recently lost weight without trying: No Nutrition Risks: No Nutritional Risk service: No Current occupational status: disabled Cognitive needs: No Hearing needs: Yes Vision needs: Yes Meds Allergies Allergy/AdvReac Type Severity Reaction Status Date / Time No Known Allergies Allergy Verified 08/15/22 15:24 Active Medications: Current Medications Acetaminophen (Acetaminophen 325 Mg Tablet) 650 mg PO Q6H PRN PRN Reason: Pain, Mild (Pain Scale 1-3) Last Admin: 08/16/22 22:52 Dose: 650 mg Apixaban (Apixaban 5 Mg Tablet) 5 mg PO BID [facility] Last Admin: 08/17/22 08:20 Dose: 5 mg Atorvastatin Calcium (Atorvastatin Calcium 40 Mg Tablet) 40 mg PO DAILY [facility] Last Admin: 08/17/22 08:20 Dose: 40 mg Diltiazem HCl (Diltiazem Hcl Cd 240 Mg Cap.Er.Deg) 240 mg PO DAILY [facility]; Protocol Last Admin: 08/17/22 08:20 Dose: 240 mg Furosemide (Furosemide 20 Mg Tablet) 20 mg PO DAILY [facility]; Protocol Last Admin: 08/17/22 08:20 Dose: 20 mg Gabapentin (Gabapentin 100 Mg Capsule) 100 mg PO TID [facility] Last Admin: 08/17/22 08:20 Dose: 100 mg Ceftriaxone Sodium 1 gm/ (Sodium Chloride) 50 mls @ 100 mls/hr IV Q24H [facility] Metoprolol Succinate (Metoprolol Succinate Er 25 Mg Tab.Er.24h) 25 mg PO DAILY [facility]; Protocol Last Admin: 08/17/22 08:20 Dose: 25 mg Mirtazapine (Mirtazapine 7.5 Mg Tablet) 7.5 mg PO BEDTIME [facility] Last Admin: 08/16/22 21:41 Dose: 7.5 mg Sodium Chloride (0.9 % Sodium Chloride Flush 3 Ml Syringe) 3 ml IVFLUSH QSHIFT [facility] Last Admin: 08/16/22 22:49 Dose: 3 ml Home Medications Medication Instructions Recorded Confirmed Last Taken Type gabapentin 100 mg capsule 100 mg PO TID 08/15/22 08/16/22 Unknown History Physical Exam Vital Signs: Vital Signs: Last Vital Signs Temp 97.5 F 08/17/22 11:02 Pulse 66 08/17/22 11:02 Resp 16 08/17/22 11:02 BP 120/68 08/17/22 11:02 Pulse Ox 93 08/17/22 11:02 O2 Del Method 08/17/22 11:02 BMI result Body Mass Index 39.7 GENERAL APPEARANCE: in no acute distress. NECK: no carotid bruit, + jugular venous distention. SKIN: no suspicious lesions, warm and dry. HEART: no murmurs, regular rate and rhythm. LUNGS: Bilateral mild expiratory wheezes. ABDOMEN: soft, nontender. EXTREMITIES: Bilateral below-knee amputation. Objective Labs and Meds Result diagrams: 08/17/22 06:19 08/17/22 06:19 Lab results: Laboratory Results - last 24 hr 08/16/22 08/17/22 08/17/22 15:17 06:19 06:19 WBC 12.2 H RBC 4.73 Hgb 14.6 Hct 43.8 MCV 92.6 MCH 30.9 MCHC 33.3 RDW 15.0 Plt Count 284 MPV 9.7 Absolute Nucleated RBC 0.000 Nucleated RBC % (auto) 0.0 Sodium 139 Potassium 4.2 Chloride 108 Carbon Dioxide 19 L Anion Gap 16 BUN 14 Creatinine 0.92 Estim Creat Clear Calc 47.0 Estimated GFR > 60 Fasting Glucose 70 Calcium 8.7 Urine Color Yellow Urine Appearance Turbid Urine pH 5.5 Ur Specific [place] >= 1.030 H Urine Protein 30 (1+) H Urine Glucose (UA) Negative Urine Ketones Trace Urine Blood Moderate (2+) H Urine Nitrite Positive H Ur Leukocyte Esterase Large (3+) H Urine RBC >20 H Urine WBC >50 H Urine WBC Clumps Present Ur Squamous Epith Cells 0-2 Other Crystals Present Urine Bacteria 4+ Hyaline Casts 3-5 Imaging Radiologist's impression: Impressions Chest CTA 08/16/22 15:23 IMPRESSION: There is irregular wall thickening of the collapsed urinary bladder. Cystitis or a mass could give this appearance. Recommend correlation with urinalysis and cystoscopy as clinically indicated. Limited study but no pulmonary embolus seen. Small to moderate bilateral pleural effusions and associated bibasilar atelectasis are new since the CT 11/03/2021. Infrarenal abdominal aortic aneurysm measures smaller than on prior studies. Narrowing of the celiac artery but it continues to opacify. Superior mesenteric and inferior mesenteric arteries opacify normally. Abdomen/Pelvis CTA 08/16/22 15:30 IMPRESSION: There is irregular wall thickening of the collapsed urinary bladder. Cystitis or a mass could give this appearance. Recommend correlation with urinalysis and cystoscopy as clinically indicated. Limited study but no pulmonary embolus seen. Small to moderate bilateral pleural effusions and associated bibasilar atelectasis are new since the CT 11/03/2021. Infrarenal abdominal aortic aneurysm measures smaller than on prior studies. Narrowing of the celiac artery but it continues to opacify. Superior mesenteric and inferior mesenteric arteries opacify normally. Assessment and Plan (1) Atrial fibrillation/flutter: Status: Acute Plan [age] gentleman with known history of atrial flutter presenting for confusion and UTI. He has been on antibiotics. Has some congestion and wheezing on exam. Mild JVD is present. Discussing with the daughter and patient has been coughing many drinks or eats. I think there is some concern for aspiration currently. He should have speech evaluation. I think continue home medications as before otherwise. Follow up after discharge with Dr. Jesus. Thank you for allowing me to participate in the care of your patient. Please feel free to contact me if you have any questions. Procedures Date of Service Date of Service: 08/17/22
[2022-08-17] MEDS: cefTRIAXone sodium 1 GM in 0.9 % Sodium Chloride 50 ML IV (15:30)
[2022-08-17] MEDS: 0.9 % Sodium Chloride Flush 3 ML SYRINGE IVFLUSH (15:30)
[2022-08-17] MEDS: dilTIAZem HCL 50 MG/10 ML VIAL 20 MG IVPUSH (20:30)
[2022-08-17] MEDS: Mirtazapine 7.5 MG TABLET PO (20:30)
[2022-08-18] MEDS: 0.9 % Sodium Chloride Flush 3 ML SYRINGE IVFLUSH ×4 (00:53→21:10)
[2022-08-18 03:08] VITALS: BP 143/59; PULSE 69; RESP 14; TEMP 36.4; O2SAT 96
[2022-08-18 06:54] LABS: Hematocrit 41.9 % (42.0-52.0); Hemoglobin 13.9 g/dl (14.0-18.0); Mean Corpuscular HGB Conc 33.2 g/dl (31.0-36.0); Mean Corpuscular Hemoglobin 30.6 pg (27.0-33.0); Mean Corpuscular Volume 92.3 fL (80.0-98.0); Mean Platelet Volume 8.9 fL (9.4-12.4); Platelet Count 324 X10*3/uL (160-400); Red Blood Count 4.54 X10*6/uL (4.60-5.80); White Blood Count 10.1 X10*3/uL (4.8-10.8)
[2022-08-18 07:44] LABS: Anion Gap 14 (12-20); Blood Urea Nitrogen 15 mg/dL (9-16); Calcium 8.5 mg/dL (8.4-10.2); Carbon Dioxide 22 mmol/L (22-29); Chloride 109 mmol/L (96-108); Creatinine Clr Calc Pharmacy 43.7; Estimated Glomerular Filt Rate > 60; Glucose Fasting 77 mg/dL (60-99); Potassium 4.1 mmol/L (3.3-5.1); Sodium 141 mmol/L (135-145)
[2022-08-18 07:49] VITALS: BP 118/76; PULSE 112; RESP 18; TEMP 36.3; O2SAT 93
--- NOTE | 2022-08-18 09:59 | HO.PM.IMPN ---
Subjective Subjective Date of Service: 08/18/22 Interval History: cc: tachy interval history:feels better Cardiovascular Cardiovascular: Reports no additional cardiovascular complaints Respiratory Respiratory: Reports no additional respiratory complaints Physical Exam Vital Signs: Vital Signs: Last Vital Signs Temp 97.4 F 08/18/22 07:49 Pulse 112 H 08/18/22 07:49 Resp 18 08/18/22 07:49 BP 118/76 08/18/22 07:49 Pulse Ox 93 08/18/22 07:49 O2 Del Method 08/18/22 07:49 BMI result Body Mass Index 39.7 GENERAL APPEARANCE: in no acute distress. NECK: no carotid bruit, + jugular venous distention. SKIN: no suspicious lesions, warm and dry. HEART: no murmurs, regular rate and rhythm. LUNGS: Bilateral mild expiratory wheezes. ABDOMEN: soft, nontender. EXTREMITIES: Bilateral below-knee amputation. Objective Data Active Medications Acetaminophen (Acetaminophen 325 Mg Tablet) 650 mg PO Q6H PRN PRN Reason: Pain, Mild (Pain Scale 1-3) Last Admin: 08/16/22 22:52 Dose: 650 mg Documented By: KAIA Apixaban (Apixaban 5 Mg Tablet) 5 mg PO BID [facility] Last Admin: 08/17/22 20:30 Dose: 5 mg Documented By: KAIA Atorvastatin Calcium (Atorvastatin Calcium 40 Mg Tablet) 40 mg PO DAILY [facility] Last Admin: 08/17/22 08:20 Dose: 40 mg Documented By: MARK Diltiazem HCl (Diltiazem Hcl Cd 240 Mg Cap.Er.Deg) 240 mg PO DAILY [facility]; Protocol Last Admin: 08/17/22 08:20 Dose: 240 mg Documented By: MARK Furosemide (Furosemide 20 Mg Tablet) 20 mg PO DAILY [facility]; Protocol Last Admin: 08/17/22 08:20 Dose: 20 mg Documented By: MARK Gabapentin (Gabapentin 100 Mg Capsule) 100 mg PO TID [facility] Last Admin: 08/17/22 20:30 Dose: 100 mg Documented By: KAIA Ceftriaxone Sodium 1 gm/ (Sodium Chloride) 50 mls @ 100 mls/hr IV Q24H [facility] Last Infusion: 08/17/22 16:50 Dose: 0 mls/hr Documented By: MARK Metoprolol Succinate (Metoprolol Succinate Er 25 Mg Tab.Er.24h) 25 mg PO DAILY [facility]; Protocol Last Admin: 08/17/22 08:20 Dose: 25 mg Documented By: MARK Mirtazapine (Mirtazapine 7.5 Mg Tablet) 7.5 mg PO BEDTIME [facility] Last Admin: 08/17/22 20:30 Dose: 7.5 mg Documented By: KAIA Sodium Chloride (0.9 % Sodium Chloride Flush 3 Ml Syringe) 3 ml IVFLUSH QSHIFT [facility] Last Admin: 08/18/22 00:53 Dose: 3 ml Documented By: LALI Labs CBC & Chem 7: 08/18/22 06:26 08/18/22 06:26 Labs: Laboratory Results - last 24 hr 08/18/22 08/18/22 06:26 06:26 MCV 92.3 MCH 30.6 MCHC 33.2 RDW 15.0 Plt Count 324 MPV 8.9 L Absolute Nucleated RBC 0.000 Nucleated RBC % (auto) 0.0 Anion Gap 14 Estim Creat Clear Calc 43.7 Estimated GFR > 60 Fasting Glucose 77 Calcium 8.5 Microbiology Microbiology Results: Microbiology 08/16/22 12:06 Blood Culture - Preliminary Blood - Venous No growth after 24 hours. 08/16/22 11:13 Blood Culture - Preliminary Blood - Venous No growth after 24 hours. 08/16/22 15:17 Urine Culture - Preliminary Urine clean catch - Urine pantoja top Gram negative vidal Assessment and Plan (1) Atrial flutter with rapid ventricular response: Status: Acute (2) PAF (paroxysmal atrial fibrillation): Status: Acute Plan 87 year old male with history of paroxysmal atrial fibrillation/flutter on eliquis, CAD, PAD s/p b/l BKA, HTN, HLD, , chronic constipation, s/p urostomy d/t neurogenic bladder and bladder outlet obstruction, and depression/anxiety presented with afib with rvr pafib with rvr hr better controlled, now off cardizem drip continue cardizem and metoprolol po, eliquis cardio appreciated ?dysphagia 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
[2022-08-18] MEDS: dilTIAZem HCL CD 240 MG CAP.ER.DEG PO (10:22)
[2022-08-18] MEDS: Apixaban 5 MG TABLET PO ×2 (10:22→21:10)
[2022-08-18] MEDS: Furosemide 20 MG TABLET PO (10:23)
[2022-08-18] MEDS: Gabapentin 100 MG CAPSULE PO ×3 (10:23→21:10)
[2022-08-18] MEDS: Atorvastatin Calcium 40 MG TABLET PO (10:23)
[2022-08-18] MEDS: Metoprolol Succinate ER 25 MG TAB.ER.24H PO (10:23)
[2022-08-18 11:17] VITALS: BP 130/90; PULSE 98; RESP 20; TEMP 36.5; O2SAT 95
--- NOTE | 2022-08-18 13:05 | MHC.CM.PN ---
Male 87 DX AFIB Patient lives on 1st floor of 2 family house with his . The son and Dtr-in-law live on the 2nd floor. The son is the patients CALL PERSON thru [employer]. There is no HCP in place. The plan is to document the HCP once the patient is competent to do so. Spoke with Dtr-in-law, Dorothea. She works [employer]. She requested a referral be made to the [facility] if the patient requires a SNF. A referral has been sent to the SNF. Per MD rounds patient is in AFIB and not ready to dc today. DP Home vs SNF via BLS.
[2022-08-18 15:18] VITALS: BP 121/62; PULSE 73; RESP 18; TEMP 36.1; O2SAT 97
[2022-08-18] MEDS: cefTRIAXone sodium 1 GM in 0.9 % Sodium Chloride 50 ML IV (16:01)
--- NOTE | 2022-08-18 16:14 | PC.NURSE ---
report received from overnight RN. anesthesiology medical doctor per DEC. Family at bedside concerned about pt status, MD notified and up to assess pt. new orders in by MD. Call abraham within reach, family remains at bedside. Speech pathologist to see pt, speech eval done. Pt resting quietly in bed now, Bedalarm on, call abraham within reach, camera in room, safety precautions taken.
--- NOTE | 2022-08-18 18:09 | MHC.SL.SWA ---
Addendum entered and electronically signed by ZAKI Tubbs 08/18/22 21:22: S.W. Original Note: Speech Pathologist Impression: Oral phase dysphagia Dysphasia Diet Status: Downgrade solids Liquid Consistency and Strategies for Safe Swallow: Liquid Intake Recommendation: Thin Liquid Intake Strategies: Small Sips Solid Food Consistency: Dietary Recommendations: Chopped/Advanced (NDD3) Additional Modifications to Solid Foods: Moisten foods with sauce/gravy Oral Medication Intake: Whole with Puree Please contact the pharmacy regarding appropriate crushable or liquid drug formulations that are available whenever modified delivery is recommended. Compensatory Strategies and Precautions to be Taken for Safe Swallow: Sitting Upright (90 deg) Supervision While Eating and Drinking for Safe Swallow: Intermittent Supervision Foods to Avoid: Sticky, dry, tough to chew foods Recommendation for Speech: Outpatient Speech Therapy Inpatient Speech Therapy Comment: Pt seen for bedside swallow evaluation this afternoon. Pt presents with oral phase dysphagia. Per pest control service technician notes, pt's family reports coughing while drinking/eating. Pt reports he sometimes coughs w/ thin liquids, like it goes down the wrong way. Pt tolerated thin liquids via straw and cup sip with assistance with no s/s of aspiration. Pt given variety of solids with prolonged mastication all consistencies. Pt tolerated dry jovana cracker. Observed to take very large bites independently (1/4 jovana cracker in mouth at one time). Mastication severely prolonged with small piece of cantaloupe, pt unable to clear pieces with multiple bites of pudding and sips of liquid; had to spit it out. Recommend DOWNGRADE to CHOPPED/ADVANCED solids and THIN liquids via cup or straw. Recommend pills crushed or whole in puree. Recommend pt is supervised during meals to monitor for diet toleration and check oral cavity. Monitor for s/s of aspiration. Recommend food to be moistened with sauce/gravy to decrease mastication time. Medicaid Collection Specialist Clinican/Clinical Fellow: Yes: Laura Crowder M.A., CF-PSYCH COORDINATOR Supervisory Statement: I have reviewed and agree with the student/clinical fellow's documentation: Speech Language Pathologist:
[2022-08-18 19:27] VITALS: BP 108/54; PULSE 73; RESP 17; TEMP 36.2; O2SAT 91
[2022-08-18] MEDS: Mirtazapine 7.5 MG TABLET PO ×2 (21:10)
[2022-08-18 23:18] VITALS: BP 123/58; PULSE 62; RESP 20; TEMP 36.1; O2SAT 95
[2022-08-19] MEDS: 0.9 % Sodium Chloride Flush 3 ML SYRINGE IVFLUSH (00:07)
[2022-08-19 03:06] VITALS: BP 104/57; PULSE 95; RESP 20; TEMP 36.2; O2SAT 96
--- NOTE | 2022-08-19 04:27 | PC.NURSE ---
2100 Med pass originally documented under day shift nurse;this RN reported to edging supervisor Med pass documentation updated manually.
--- NOTE | 2022-08-19 04:28 | PC.NURSE ---
2100 Med pass originally documented under day shift nurse;this RN reported to line construction supervisor Med pass documentation updated manually.
--- NOTE | 2022-08-19 04:50 | PC.NURSE ---
Patient IV in left IJ was not intact Amiodorone drip paused for 2 hours , removed and several attemps to inseert new IV made by 3 STAFF nurses and Hazardous Material Specialist. Reported to the Dr asked for PO Amiodorone, Dr stated IV protocol must have IV access. ER nurse called; access obtained 22 L wrist , Amiodorone restarted.
[2022-08-19 07:50] VITALS: BP 140/88; PULSE 98; RESP 19; TEMP 37.1; O2SAT 98
[2022-08-19] MEDS: Furosemide 20 MG TABLET PO (08:20)
[2022-08-19] MEDS: Atorvastatin Calcium 40 MG TABLET PO (08:20)
[2022-08-19] MEDS: Metoprolol Succinate ER 25 MG TAB.ER.24H PO (08:20)
[2022-08-19] MEDS: Apixaban 5 MG TABLET PO ×2 (08:20→20:27)
[2022-08-19] MEDS: dilTIAZem HCL CD 240 MG CAP.ER.DEG PO (08:20)
[2022-08-19] MEDS: Gabapentin 100 MG CAPSULE PO ×3 (08:21→20:27)
--- NOTE | 2022-08-19 11:26 | P.PNCA_ITS ---
Subjective Subjective Date of Service: 08/19/22 Interval history: Seen examined at bedside. More awake and oriented. Asymptomatic. Physical Exam Vital Signs: Last Vital Signs Temp 98.7 F 08/19/22 07:50 Pulse 98 08/19/22 07:50 Resp 19 08/19/22 07:50 BP 140/88 H 08/19/22 07:50 Pulse Ox 98 08/19/22 07:50 O2 Del Method 08/19/22 07:50 BMI result Body Mass Index 39.7 GENERAL APPEARANCE: in no acute distress. NECK: no carotid bruit, no significant jugular venous distention. SKIN: no suspicious lesions, warm and dry. HEART: no murmurs, regular rate and rhythm. LUNGS: Clear to auscultation. ABDOMEN: soft, nontender. EXTREMITIES: Bilateral below-knee amputation. Objective Labs and Meds Result diagrams: 08/18/22 06:26 08/18/22 06:26 Imaging Radiologist's impression: Impressions Head CT 08/18/22 11:44 IMPRESSION: * No hemorrhage or other acute intracranial pathology. * Chronic moderate volume loss and chronic small vessel ischemic changes of the supratentorial white matter Progress Note: A&P Assessment and plan (1) Atrial fibrillation/flutter: Status: Acute (2) Urinary tract infection: Status: Acute Plan [age] gentleman with background of atrial flutter presenting with tachycardia is setting of UTI. Has been on IV antibiotics and improving. On p.o. Cardizem and metoprolol with good rate control. On anticoagulation with Eliquis 5 mg twice a day. Overall stable. Can be discharged from card iovascular point of view. Thank you for allowing me to participate in the care of your patient. Please feel free to contact me if you have any questions. Time Spent With Patient Time: Total time spent is greater than 50% in coordination of care (as documented) at patient's floor/unit and/or counseling patient: Progress Note: Quality Stroke Does the patient have a stroke diagnosis?: No Procedures Date of Service Date of Service: 08/19/22
[2022-08-19 11:38] VITALS: BP 120/75; PULSE 88; RESP 17; TEMP 36.8; O2SAT 98
--- NOTE | 2022-08-19 11:45 | P.PNIM_ITS ---
Subjective Subjective Date of Service: 08/19/22 Interval History: cc: tachy interval history:feels better Cardiovascular Cardiovascular: Reports no additional cardiovascular complaints Respiratory Respiratory: Reports no additional respiratory complaints Physical Exam Vital Signs: Vital Signs: Last Vital Signs Temp 98.2 F 08/19/22 11:38 Pulse 88 08/19/22 11:38 Resp 17 08/19/22 11:38 BP 120/75 08/19/22 11:38 Pulse Ox 98 08/19/22 11:38 O2 Del Method 08/19/22 11:38 BMI result Body Mass Index 39.7 GENERAL APPEARANCE: in no acute distress. NECK: no carotid bruit, no significant jugular venous distention. SKIN: no suspicious lesions, warm and dry. HEART: no murmurs, regular rate and rhythm. LUNGS: Clear to auscultation. ABDOMEN: soft, nontender. EXTREMITIES: Bilateral below-knee amputation. Objective Data Active Medications Acetaminophen (Acetaminophen 325 Mg Tablet) 650 mg PO Q6H PRN PRN Reason: Pain, Mild (Pain Scale 1-3) Last Admin: 08/16/22 22:52 Dose: 650 mg Documented By: KAIA Apixaban (Apixaban 5 Mg Tablet) 5 mg PO BID REPLACED BY [facility] Last Admin: 08/19/22 08:20 Dose: 5 mg Documented By: KEITH Atorvastatin Calcium (Atorvastatin Calcium 40 Mg Tablet) 40 mg PO DAILY REPLACED BY [facility] Last Admin: 08/19/22 08:20 Dose: 40 mg Documented By: KEITH Diltiazem HCl (Diltiazem Hcl Cd 240 Mg Cap.Er.Deg) 240 mg PO DAILY REPLACED BY [facility]; Protocol Last Admin: 08/19/22 08:20 Dose: 240 mg Documented By: KEITH Furosemide (Furosemide 20 Mg Tablet) 20 mg PO DAILY REPLACED BY [facility]; Protocol Last Admin: 08/19/22 08:20 Dose: 20 mg Documented By: KEITH Gabapentin (Gabapentin 100 Mg Capsule) 100 mg PO TID REPLACED BY [facility] Last Admin: 08/19/22 08:21 Dose: 100 mg Documented By: KEITH Metoprolol Succinate (Metoprolol Succinate Er 25 Mg Tab.Er.24h) 25 mg PO DAILY REPLACED BY [facility]; Protocol Last Admin: 08/19/22 08:20 Dose: 25 mg Documented By: KEITH Mirtazapine (Mirtazapine 7.5 Mg Tablet) 7.5 mg PO BEDTIME REPLACED BY [facility] Last Admin: 08/18/22 21:10 Dose: 7.5 mg Documented By: WALT Sodium Chloride (0.9 % Sodium Chloride Flush 3 Ml Syringe) 3 ml IVFLUSH QSHIFT REPLACED BY [facility] Last Admin: 08/18/22 21:10 Dose: 3 ml Documented By: WALT Labs CBC & Chem 7: 08/18/22 06:26 08/18/22 06:26 Microbiology Microbiology Results: Microbiology 08/16/22 12:06 Blood Culture - Preliminary Blood - Venous No growth after 48 hours. 08/16/22 11:13 Blood Culture - Preliminary Blood - Venous No growth after 48 hours. 08/16/22 15:17 Urine Culture - Final Urine clean catch - Urine pantoja top Assessment and Plan (1) Atrial flutter with rapid ventricular response: Status: Acute (2) PAF (paroxysmal atrial fibrillation): Status: Acute Plan 87 year old male with history of paroxysmal atrial fibrillation/flutter on eliquis, CAD, PAD s/p b/l BKA, HTN, HLD, , chronic constipation, s/p urostomy d/t neurogenic bladder and bladder outlet obstruction, and depression/anxiety presented with afib with rvr pafib with rvr hr better controlled, now off cardizem drip continue cardizem po and metoprolol (increase to 50mg daily), eliquis cardio appreciated dysphagia 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
[2022-08-19 12:29] VITALS: BP 105/55; PULSE 77; O2SAT 96
[2022-08-19 16:00] VITALS: BP 124/61; PULSE 81; RESP 18; TEMP 36.4; O2SAT 96
[2022-08-19 20:00] VITALS: BP 139/61; PULSE 81; RESP 16; TEMP 36.3; O2SAT 96
[2022-08-19] MEDS: Mirtazapine 7.5 MG TABLET PO (20:27)
[2022-08-20] VITALS (7 sets, daily range): BP systolic 113–141; BP diastolic 59–66; PULSE 62–85; RESP 16–20; TEMP 36.1–36.5; O2SAT 92–99
[2022-08-20] MEDS: 0.9 % Sodium Chloride Flush 3 ML SYRINGE IVFLUSH ×2 (01:52→14:52)
[2022-08-20 06:27] LABS: Hematocrit 42.1 % (42.0-52.0); Mean Corpuscular HGB Conc 33.3 g/dl (31.0-36.0); Mean Corpuscular Volume 93.3 fL (80.0-98.0); Mean Platelet Volume 8.9 fL (9.4-12.4); Platelet Count 350 X10*3/uL (160-400); Red Blood Count 4.51 X10*6/uL (4.60-5.80); Red Cell Distribution Width 15.2 % (11.0-16.0); White Blood Count 10.6 X10*3/uL (4.8-10.8)
[2022-08-20 06:38] LABS: Anion Gap 17 (12-20); Blood Urea Nitrogen 21 mg/dL (9-16); Calcium 8.2 mg/dL (8.4-10.2); Carbon Dioxide 20 mmol/L (22-29); Chloride 109 mmol/L (96-108); Creatinine Clr Calc Pharmacy 29.4; Estimated Glomerular Filt Rate 46; Glucose Fasting 84 mg/dL (60-99); Sodium 142 mmol/L (135-145)
[2022-08-20] MEDS: Apixaban 5 MG TABLET PO ×2 (08:24→20:16)
[2022-08-20] MEDS: Metoprolol Succinate ER 50 MG TAB.ER.24H PO (08:24)
[2022-08-20] MEDS: Atorvastatin Calcium 40 MG TABLET PO (08:24)
[2022-08-20] MEDS: Gabapentin 100 MG CAPSULE PO ×3 (08:24→20:16)
[2022-08-20] MEDS: dilTIAZem HCL CD 240 MG CAP.ER.DEG PO (08:24)
--- NOTE | 2022-08-20 10:34 | HO.PM.IMPN ---
Subjective Subjective Date of Service: 08/20/22 Interval History: cc: tachy interval history:feels better Cardiovascular Cardiovascular: Reports no additional cardiovascular complaints Respiratory Respiratory: Reports no additional respiratory complaints Physical Exam Vital Signs: Vital Signs: Last Vital Signs Temp 97.6 F 08/20/22 08:00 Pulse 85 08/20/22 08:00 Resp 20 08/20/22 08:00 BP 113/59 L 08/20/22 08:00 Pulse Ox 98 08/20/22 08:00 O2 Del Method 08/20/22 08:00 BMI result Body Mass Index 39.7 GENERAL APPEARANCE: in no acute distress. NECK: no carotid bruit, no significant jugular venous distention. SKIN: no suspicious lesions, warm and dry. HEART: no murmurs, regular rate and rhythm. LUNGS: Clear to auscultation. ABDOMEN: soft, nontender. EXTREMITIES: Bilateral below-knee amputation. Objective Data Active Medications Acetaminophen (Acetaminophen 325 Mg Tablet) 650 mg PO Q6H PRN PRN Reason: Pain, Mild (Pain Scale 1-3) Last Admin: 08/16/22 22:52 Dose: 650 mg Documented By: KAIA Apixaban (Apixaban 5 Mg Tablet) 5 mg PO BID [facility] Last Admin: 08/20/22 08:24 Dose: 5 mg Documented By: KEITH Atorvastatin Calcium (Atorvastatin Calcium 40 Mg Tablet) 40 mg PO DAILY [facility] Last Admin: 08/20/22 08:24 Dose: 40 mg Documented By: KEITH Diltiazem HCl (Diltiazem Hcl Cd 240 Mg Cap.Er.Deg) 240 mg PO DAILY [facility]; Protocol Last Admin: 08/20/22 08:24 Dose: 240 mg Documented By: KEITH Gabapentin (Gabapentin 100 Mg Capsule) 100 mg PO TID [facility] Last Admin: 08/20/22 08:24 Dose: 100 mg Documented By: KEITH Lactated Ringer's (Lr) 1,000 mls @ 80 mls/hr IVCONT .[id number] [facility] Metoprolol Succinate (Metoprolol Succinate Er 50 Mg Tab.Er.24h) 50 mg PO DAILY [facility]; Protocol Last Admin: 08/20/22 08:24 Dose: 50 mg Documented By: KEITH Mirtazapine (Mirtazapine 7.5 Mg Tablet) 7.5 mg PO BEDTIME [facility] Last Admin: 08/19/22 20:27 Dose: 7.5 mg Documented By: WALT Sodium Chloride (0.9 % Sodium Chloride Flush 3 Ml Syringe) 3 ml IVFLUSH QSHIFT [facility] Last Admin: 08/20/22 10:11 Dose: Not Given Documented By: KEITH Non-Admin Reason: No Access Labs CBC & Chem 7: 08/20/22 05:47 08/20/22 05:47 Labs: Laboratory Results - last 24 hr 08/20/22 08/20/22 05:47 05:47 MCV 93.3 MCH 31.0 MCHC 33.3 RDW 15.2 Plt Count 350 MPV 8.9 L Absolute Nucleated RBC 0.000 Nucleated RBC % (auto) 0.0 Anion Gap 17 Estim Creat Clear Calc 29.4 Estimated GFR 46 Fasting Glucose 84 Calcium 8.2 L Assessment and Plan (1) Atrial flutter with rapid ventricular response: Status: Acute (2) PAF (paroxysmal atrial fibrillation): Status: Acute Plan 87 year old male with history of paroxysmal atrial fibrillation/flutter on eliquis, CAD, PAD s/p b/l BKA, HTN, HLD, , chronic constipation, s/p urostomy d/t neurogenic bladder and bladder outlet obstruction, and depression/anxiety presented with afib with rvr pafib with rvr continue cardizem po and metoprolol (increased to 50mg daily), eliquis cardio appreciated BEAR will give 1L LR, monitor dysphagia 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
[2022-08-20] MEDS: Lactated Ringers 1,000 ML 80 ML IVCONT (11:26)
[2022-08-20] MEDS: Acetaminophen 325 MG TABLET 650 MG PO (20:15)
[2022-08-20] MEDS: Mirtazapine 7.5 MG TABLET PO (20:16)
[2022-08-21] VITALS (7 sets, daily range): BP systolic 110–150; BP diastolic 56–69; PULSE 65–76; RESP 14–20; TEMP 36.1–36.6; O2SAT 93–98
[2022-08-21] MEDS: 0.9 % Sodium Chloride Flush 3 ML SYRINGE IVFLUSH ×4 (00:23→22:29)
[2022-08-21] MEDS: Atorvastatin Calcium 40 MG TABLET PO (08:10)
[2022-08-21] MEDS: dilTIAZem HCL CD 240 MG CAP.ER.DEG PO (08:10)
[2022-08-21] MEDS: Gabapentin 100 MG CAPSULE PO ×3 (08:10→22:29)
[2022-08-21] MEDS: Apixaban 5 MG TABLET PO ×2 (08:10→22:29)
[2022-08-21] MEDS: Metoprolol Succinate ER 50 MG TAB.ER.24H PO (08:10)
--- NOTE | 2022-08-21 11:08 | P.PNIM_ITS ---
Subjective Subjective Date of Service: 08/21/22 Interval History: cc: tachy interval history:feels better Cardiovascular Cardiovascular: Reports no additional cardiovascular complaints Respiratory Respiratory: Reports no additional respiratory complaints Physical Exam Vital Signs: Vital Signs: Last Vital Signs Temp 96.9 F 08/21/22 07:24 Pulse 67 08/21/22 07:24 Resp 17 08/21/22 07:24 BP 137/58 L 08/21/22 07:24 Pulse Ox 93 08/21/22 07:24 O2 Del Method 08/21/22 07:24 BMI result Body Mass Index 39.7 GENERAL APPEARANCE: in no acute distress. NECK: no carotid bruit, no significant jugular venous distention. SKIN: no suspicious lesions, warm and dry. HEART: no murmurs, regular rate and rhythm. LUNGS: Clear to auscultation. ABDOMEN: soft, nontender. EXTREMITIES: Bilateral below-knee amputation. Objective Data Active Medications Acetaminophen (Acetaminophen 325 Mg Tablet) 650 mg PO Q6H PRN PRN Reason: Pain, Mild (Pain Scale 1-3) Last Admin: 08/20/22 20:15 Dose: 650 mg Documented By: WALT Apixaban (Apixaban 5 Mg Tablet) 5 mg PO BID [facility] Last Admin: 08/21/22 08:10 Dose: 5 mg Documented By: ANTONIO Atorvastatin Calcium (Atorvastatin Calcium 40 Mg Tablet) 40 mg PO DAILY [facility] Last Admin: 08/21/22 08:10 Dose: 40 mg Documented By: ANTONIO Diltiazem HCl (Diltiazem Hcl Cd 240 Mg Cap.Er.Deg) 240 mg PO DAILY [facility]; Protocol Last Admin: 08/21/22 08:10 Dose: 240 mg Documented By: ANTONIO Gabapentin (Gabapentin 100 Mg Capsule) 100 mg PO TID [facility] Last Admin: 08/21/22 08:10 Dose: 100 mg Documented By: ANTONIO Metoprolol Succinate (Metoprolol Succinate Er 50 Mg Tab.Er.24h) 50 mg PO DAILY [facility]; Protocol Last Admin: 08/21/22 08:10 Dose: 50 mg Documented By: ANTONIO Mirtazapine (Mirtazapine 7.5 Mg Tablet) 7.5 mg PO BEDTIME [facility] Last Admin: 08/20/22 20:16 Dose: 7.5 mg Documented By: WALT Sodium Chloride (0.9 % Sodium Chloride Flush 3 Ml Syringe) 3 ml IVFLUSH QSHIFT [facility] Last Admin: 08/21/22 08:10 Dose: 3 ml Documented By: ANTONIO Labs CBC & Chem 7: 08/20/22 05:47 08/20/22 05:47 Assessment and Plan (1) Atrial flutter with rapid ventricular response: Status: Acute (2) PAF (paroxysmal atrial fibrillation): Status: Acute Plan 87 year old male with history of paroxysmal atrial fibrillation/flutter on eliquis, CAD, PAD s/p b/l BKA, HTN, HLD, , chronic constipation, s/p urostomy d/t neurogenic bladder and bladder outlet obstruction, and depression/anxiety presented with afib with rvr pafib with rvr continue cardizem po and metoprolol (increased to 50mg daily), eliquis cardio appreciated BEAR s/p 1L LR, follow up bmp dysphagia [employer]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
--- NOTE | 2022-08-21 15:21 | MHC.CM.PN ---
per physical therapy son will bring in pts w/c and the slide board he uses at home,luana if he is at baseline he will be able to go home with [facility] when dcd referrals to [facility] made
--- NOTE | 2022-08-21 16:30 | MHC.SL.SWA ---
Addendum entered and electronically signed by ZAKI Tubbs 08/22/22 09:09: SW Original Note: Dysphasia Diet Status: No change Liquid Consistency and Strategies for Safe Swallow: Liquid Intake Recommendation: Thin Liquid Intake Strategies: Small Sips Solid Food Consistency: Dietary Recommendations: Chopped/Advanced (NDD3) Additional Modifications to Solid Foods: Moisten foods with sauce/gravy Oral Medication Intake: Whole with Puree Please contact the pharmacy regarding appropriate crushable or liquid drug formulations that are available whenever modified delivery is recommended. Compensatory Strategies and Precautions to be Taken for Safe Swallow: Sitting Upright (90 deg) Small Bites and Sips Alternate Liquids/Solids Rate of Ingestion Change Avoid Specific Foods Supervision While Eating and Drinking for Safe Swallow: Intermittent Supervision Foods to Avoid: Sticky, dry, tough to chew foods Swallowing Recommended Treatments: Compens. Strategy Educat. Recommendation for Speech: Outpatient Speech Therapy Inpatient Speech Therapy Comment: Checked in w/ RN. RN reports no coughing or s/s of aspiration with thin liquids. Reports meds given this morning crushed with applesauce d/t large pill capsules. Pt seen for bedside dysphagia tx this morning. Pt was asleep with untouched chopped breakfast tray. Pt awoke immediately to verbal stimuli. Pt observed to eat scrambled eggs, chopped pancake (visibly looked like ground consistency), cream of rice, and orange juice. Pt observed to independently alternate between liquids and solids. Pt observed to introduce additional solids prior to clearing oral cavity. Pt noted to cough 1X during breakfast when pt observed to introduce multiple bites of solids and some liquids prior to clearing oral cavity. Otherwise, no s/s of aspiration. Pt benefits from cues to chew food well and finish first bite before introducing more food. Recommend pt continue with CHOPPED/ADVANCED solids and THIN liquids via cup or straw. Recommend pills crushed or whole in puree. Recommend pt is supervised during meals to monitor for diet toleration and check oral cavity. Monitor for s/s of aspiration. Recommend food to be moistened with sauce/gravy to decrease mastication time. Corporate Affairs Manager Clinican/Clinical Fellow: Yes: Laura Crowder M.A., CF-OILSEED MEAT PRESSER Supervisory Statement: I have reviewed and agree with the student/clinical fellow's documentation: Yes Speech Language Pathologist: Megahn Jhaveri M.A., CCC-OILSEED MEAT PRESSER
[2022-08-21] MEDS: Mirtazapine 7.5 MG TABLET PO (22:29)
[2022-08-22 03:31] VITALS: BP 118/62; PULSE 66; RESP 18; TEMP 36.5; O2SAT 97
[2022-08-22 06:20] LABS: Hemoglobin 13.8 g/dl (14.0-18.0); Mean Corpuscular HGB Conc 32.9 g/dl (31.0-36.0); Mean Corpuscular Hemoglobin 30.7 pg (27.0-33.0); Mean Corpuscular Volume 93.5 fL (80.0-98.0); Mean Platelet Volume 8.7 fL (9.4-12.4); Platelet Count 337 X10*3/uL (160-400); Red Blood Count 4.49 X10*6/uL (4.60-5.80); Red Cell Distribution Width 14.9 % (11.0-16.0); White Blood Count 10.5 X10*3/uL (4.8-10.8)
[2022-08-22 06:37] LABS: Anion Gap 13 (12-20); Blood Urea Nitrogen 16 mg/dL (9-16); Calcium 8.2 mg/dL (8.4-10.2); Carbon Dioxide 18 mmol/L (22-29); Chloride 113 mmol/L (96-108); Creatinine Clr Calc Pharmacy 39.3; Estimated Glomerular Filt Rate > 60; Glucose Fasting 85 mg/dL (60-99); Potassium 4.4 mmol/L (3.3-5.1); Sodium 140 mmol/L (135-145)
[2022-08-22 08:00] VITALS: BP 131/55; PULSE 67; RESP 18; TEMP 36.9; O2SAT 96
[2022-08-22] MEDS: Gabapentin 100 MG CAPSULE PO (09:10)
[2022-08-22] MEDS: Apixaban 5 MG TABLET PO (09:10)
[2022-08-22] MEDS: Atorvastatin Calcium 40 MG TABLET PO (09:10)
[2022-08-22] MEDS: 0.9 % Sodium Chloride Flush 3 ML SYRINGE IVFLUSH (09:10)
[2022-08-22] MEDS: Metoprolol Succinate ER 50 MG TAB.ER.24H PO (09:10)
[2022-08-22] MEDS: dilTIAZem HCL CD 240 MG CAP.ER.DEG PO (09:10)
[2022-08-22 12:00] VITALS: BP 129/64; PULSE 70; RESP 18; TEMP 36.8; O2SAT 99
--- NOTE | 2022-08-22 12:46 | MHC.CM.PN ---
pt being dcd today at 2:30 by amb home with hvns spoke with ashley juan who will be home to meet pt
--- NOTE | 2022-08-22 13:08 | PM.DS ---
DS: Providers Provider Date of Service: 08/22/22 Date of admission: 08/16/22 17:36 Primary care physician: Wagner Arguelles MD Consults: 08/16/22 17:37 Consult to Cardiology Routine Consulting Provider: Juan Alcaraz Reason for consultation: pafib with rvr DS: Diagnosis Discharge Diagnosis (1) Atrial flutter with rapid ventricular response: Status: Acute (2) PAF (paroxysmal atrial fibrillation): Status: Acute DS: Summary Hospital Course Hospital Course: from initial hpi: Chief Complaint: n/v chest pain 87 year old male with history of paroxysmal atrial fibrillation/flutter on eliquis, CAD, PAD s/p b/l BKA, HTN, HLD, CKD stage 3, chronic constipation, s/p urostomy d/t neurogenic bladder and bladder outlet obstruction, and depression/anxiety was brought in by EMS after visiting RN found patient to be in rapid AFib.? He had been having several days of cough, reports nausea vomiting, however patient does have dementia and this appears to be in inconsistent history.? He does note palpitations.? In ED found to be in rapid AFib.? Also noted to have positive UA. hospital course: Patient was admitted for paroxysmal atrial fibrillation with rapid ventricular response. He was treated with IV Cardizem initially then transition to p.o., his Toprol was also increased to 50 mg daily. Course was complicated by acute kidney injury, it improved with 1 L of LR. He was also noted to have dysphagia, he was seen by also be recommended ndd3 solids with thin liquids. For his coronary disease, peripheral vascular disease, status post bilateral BKA he was continue on Eliquis and statin. Patient was noted to have a positive UA and was given 3 days of ceftriaxone, however in the setting of urostomy and negative urine culture unlikely to be UTI. Patient appears to be back at baseline and will be discharged home. Time Spent with Patient Time attestation: Total time spent providing and/or coordinating discharge services: Discharge coordination time: Greater than 30 minutes Quality: Safe Use of Opioids Does Pt have an Active Cancer Diagnosis on the Problem List?: No Quality: Stroke Does the patient have a stroke diagnosis?: No Physical Exam Vital Signs: Vital Signs: Last Vital Signs Temp 98.2 F 08/22/22 12:00 Pulse 70 08/22/22 12:00 Resp 18 11/15/22 12:00 BP 129/64 08/22/22 12:00 Pulse Ox 99 08/22/22 12:00 O2 Del Method 08/22/22 12:00 O2 Flow Rate 3 08/22/22 12:00 BMI result Body Mass Index 39.7 GENERAL APPEARANCE: in no acute distress. NECK: no carotid bruit, no significant jugular venous distention. SKIN: no suspicious lesions, warm and dry. HEART: no murmurs, regular rate and rhythm. LUNGS: Clear to auscultation. ABDOMEN: soft, nontender. EXTREMITIES: Bilateral below-knee amputation. DS: Data Data Completed and Pending Labs on day of discharge: Laboratory Results - last 24 hr 08/22/22 08/22/22 05:50 05:50 WBC 10.5 RBC 4.49 L Hgb 13.8 L Hct 42.0 MCV 93.5 MCH 30.7 MCHC 32.9 RDW 14.9 Plt Count 337 MPV 8.7 L Absolute Nucleated RBC 0.000 Nucleated RBC % (auto) 0.0 Sodium 140 Potassium 4.4 Chloride 113 H Carbon Dioxide 18 L Anion Gap 13 BUN 16 Creatinine 1.10 Estim Creat Clear Calc 39.3 Estimated GFR > 60 Fasting Glucose 85 Calcium 8.2 L Discharge Plan Discharge Anticipated Discharge Date/Time: 08/22/22 13:05 Patient Disposition: Home, Self-Care Discharge Diagnosis: afib, giorgio Referrals: hvns [Other] - 1 Week Wagner Arguelles MD [Primary Care Provider] - 1 Week Discharge Medications: New metoprolol succinate 50 mg Tablet Extended Release 24 Hr 50 mg PO DAILY Qty: 30 0RF Protocol: Hold for SBP/HR < HOLD for SBP < : 90 HOLD for HR < : 60 Continued (DME) hospital bed Kit See Rx Instructions .Route Qty: 1 0RF Rx Instructions: As directed gabapentin 100 mg capsule 100 mg PO TID mirtazapine 7.5 mg tablet 7.5 mg PO BEDTIME 30 Days Qty: 30 3RF atorvastatin 40 mg tablet 40 mg PO DAILY 90 Days Qty: 90 1RF diltiazem HCl [Cardizem CD] 240 mg capsule,extended release 24hr 240 mg PO DAILY 90 Days Qty: 90 1RF aspirin 81 mg tablet,delayed release (DR/EC) 81 mg PO DAILY 90 Days Qty: 90 1RF furosemide [Lasix] 20 mg tablet 20 mg PO DAILY 30 Days Qty: 30 3RF Eliquis 5 mg tablet 5 mg PO BID Qty: 180 3RF (DME) [employer] Urinary Drain Bag 2,000 mL misc See Rx Instructions .MEDSUPPLY Qty: 1 11RF Rx Instructions: As directed Discontinued metoprolol succinate [Toprol XL] 25 mg tablet extended release 24 hr 25 mg PO DAILY Qty: 90 3RF Discharge Orders: Discharge Order (Routine); Ordered 08/22/22 Ordered By: Matthew Brannon Diet: Advance to usual diet Activity on Discharge: As tolerated Stand Alone Forms: Patient Portal Discharge page Care Plan Goals: recovery Health Concerns: afib Plan of Treatment: increased toprol to 50mg daily Assessment: see above
--- NOTE | 2022-08-22 14:19 | PC.NURSE ---
report received from overnight RN. workers compensation administrator per DEC. no c/o pain. Pt to be discharged home today by ambulance. Belongings returned, IV removed, tele removed. Camera, bed alarm and safety precautions remain in place until transfer home.
== END 2022-08-22 15:25 | disposition home or self-care (01) | DRG 309 ==
LOC: HO.ED 16:32 → HO.EDOVER 18:28 → HO.IMC 19:31
PROVIDERS: Admitting Provider Internal Medicine; Emergency Provider Emergency Medicine; PCP Internal Medicine; Visit Provider Internal Medicine
DX: I48.0 Paroxysmal atrial fibrillation (principal); N17.9 Acute kidney failure, unspecified; I12.9 Hypertensive chronic kidney disease with stage 1 through stage 4 chronic kidney disease, or unspecified chronic kidney disease; N18.30 Chronic kidney disease, stage 3 unspecified; E11.22 Type 2 diabetes mellitus with diabetic chronic kidney disease; I25.10 Atherosclerotic heart disease of native coronary artery without angina pectoris; N40.1 Benign prostatic hyperplasia with lower urinary tract symptoms; R33.8 Other retention of urine; K21.9 Gastro-esophageal reflux disease without esophagitis; N31.9 Neuromuscular dysfunction of bladder, unspecified; E78.5 Hyperlipidemia, unspecified; I73.9 Peripheral vascular disease, unspecified; I48.92 Unspecified atrial flutter; R13.10 Dysphagia, unspecified; K59.09 Other constipation; F41.9 Anxiety disorder, unspecified; Z23 Encounter for immunization; Z93.6 Other artificial openings of urinary tract status; Z20.822 Contact with and (suspected) exposure to COVID-19; Z89.512 Acquired absence of left leg below knee; Z89.511 Acquired absence of right leg below knee; Z79.01 Long term (current) use of anticoagulants; Z79.82 Long term (current) use of aspirin; Z79.899 Other long term (current) drug therapy
CPT/HCPCS: 36415; 70450; 71045; 71275; 74174; 80048; 80053; 81001; 83605; 83880; 84484; 85025; 85027; 85379; 85610; 87040; 87086; 87633; 90686; 92526; 92610; 93005; 97162; 99285; J0696; Q9967

== ENCOUNTER 2022-10-17 18:33 | Inpatient (IN) | payer MEDICARE, MEDICAID, SELFPAY ==
--- NOTE | ~2022-10-17 | XR_ITS ---
EXAMINATION: XR CHEST CLINICAL INFORMATION: Shortness of breath COMPARISON: Chest x-ray 08/26/2022 TECHNIQUE: Frontal portable view of the chest was obtained. 2033 FINDINGS: Heart size is prominent. There is no pulmonary vascular congestion. There is haziness of the right lung base with mild blunting of costophrenic angles similar prior chest x-ray 08/16/2022 consistent with pleural effusion and basilar atelectasis. Left lung normally aerated. No evidence of a left pleural effusion. XR/XR chest 1V IMPRESSION: Persistent right pleural effusion and right basilar atelectasis. No significant change since prior chest x-ray 08/16/2022.
--- NOTE | 2022-10-17 07:30 | ECG_ITS ---
Test Reason : ARRHYTHMIA Blood Pressure : / mmHG Vent. Rate : 110 BPM Atrial Rate : 277 BPM P-R Int : 000 ms QRS Dur : 080 ms QT Int : 330 ms P-R-T Axes : 063 047 221 degrees QTc Int : 446 ms Atrial flutter with variable A-V block with premature ventricular or aberrantly conducted complexes T wave abnormality, consider anterior ischemia Abnormal ECG When compared with ECG of 17-OCT-2022 21:33, Atrial flutter has replaced Sinus rhythm Referred By: Luis Steen Electronically Signed By:Juan Alcaraz
[2022-10-17 18:58] VITALS: BP 117/70; PULSE 129; RESP 18; TEMP 36.8
--- NOTE | 2022-10-17 19:20 | PC.NURSE ---
assumed care of pt, no apparent distress, watching tv while resting quietly
--- NOTE | 2022-10-17 19:20 | ED_ITS ---
HPI - General Adult General Chief complaint: General Medical Stated complaint: hypotensive? Time Seen by Provider: 10/17/22 19:12 Source: patient Mode of arrival: EMS Limitations: no limitations History of Present Illness HPI narrative: Patient 87 years old with history of atrial fibrillation on Cardizem 240 mg and Eliquis and metoprolol 50 mg, history of hypertension diabetes depression diabetes status post bilateral BKA comes here as visiting nurse noticed his blood pressure low heart rate was fast patient does not remember details. On arrival patient's heart rate was in 130s blood pressure 117/70 afebrile saturating 97% a room air patient was given amiodarone in 02/26 patient did not feel good and amiodarone discontinued after that patient heart rate been controlled on Cardizem and beta-raquel Related Data Home Medications Medication Instructions Recorded Confirmed dexlansoprazole 60 mg 60 mg PO DAILY 10/17/22 10/17/22 capsule,biphase delayed release docusate sodium 100 mg capsule 100 mg PO DAILY PRN Constipation 10/17/22 10/17/22 (Colace) duloxetine 30 mg capsule,delayed 1 cap PO QAM 10/17/22 10/17/22 release gabapentin 100 mg capsule 300 mg PO BEDTIME 10/17/22 10/17/22 metoprolol succinate 25 mg 1 tab PO DAILY 10/17/22 10/17/22 tablet,extended release 24 hr sulfamethoxazole 800 1 tab PO QMONTH 10/17/22 10/17/22 mg-trimethoprim 160 mg tablet Previous Rx's Medication Instructions Recorded drainage bag 2,000 mL (Kenguard #1 ea 10/20/21 Urinary Drain Bag) apixaban 5 mg tablet (Eliquis) 5 mg PO BID #180 tabs 03/09/22 hospital bed #1 ea 05/05/22 aspirin 81 mg tablet,delayed 81 mg PO DAILY 90 days #90 tabs 08/15/22 release atorvastatin 40 mg tablet 40 mg PO DAILY 90 days #90 tabs 08/15/22 diltiazem HCl 240 mg 240 mg PO DAILY 90 days #90 caps 08/15/22 capsule,extended release 24 hr (Cardizem CD) furosemide 20 mg tablet (Lasix) 20 mg PO DAILY 30 days #30 tabs 08/15/22 mirtazapine 7.5 mg tablet 7.5 mg PO BEDTIME 30 days #30 tabs 08/15/22 Allergies Allergy/AdvReac Type Severity Reaction Status Date / Time No Known Allergies Allergy Verified 08/15/22 15:24 Review of Systems Review of Systems: Yes all other systems are reviewed and are negative [facility] Past Medical History Medical History Anxiety Atherosclerotic cardiovascular disease Benign essential hypertension BPH (benign prostatic hyperplasia) COVID-19 vaccine series completed Depression Depression GERD (gastroesophageal reflux disease) Hypertension Neurogenic bladder Peripheral vascular disease Pure hypercholesterolemia Urinary retention Surgical History H/O colonoscopy History of below-knee amputation of both lower extremities History of bladder surgery Family History Family History Father Colon cancer Mother Asthma Son HTN (hypertension) Social History Social History Household Members: Children Housing: Apartment Housing Other:: 2 family home-son & DIL 2nd floor Are you a primary landcare facilitator to a significant other at home: No Do you presently have visiting nurse or other home services: Yes Alcohol intake: never Patient Tobacco Use Status: Never used Tobacco Smoked in Last 30 Days: No e-Cigarette/Vaping Use: Never Used Second Hand Smoke Exposure: No Use of substances other than those prescribed or required for medical reasons: No Advance Directives: No Advance Directives Information Provided: No service: No Current occupational status: disabled Cognitive needs: No Hearing needs: Yes Vision needs: Yes Physical Exam ED Vital Signs: Vital Signs - 24 hr 10/17/22 18:58 10/17/22 19:24 10/17/22 20:27 Temperature 98.2 F 98.2 F Pulse Rate 129 H 136 H 131 H Respiratory Rate 18 16 16 Blood Pressure 117/70 117/70 100/59 L Pulse Oximetry 97 94 Oxygen Delivery Method Room Air Room Air 10/17/22 20:53 10/17/22 22:20 Temperature 98.7 F Pulse Rate 120 H 133 H Respiratory Rate 14 14 Blood Pressure 96/45 L 105/67 Pulse Oximetry 97 97 Oxygen Delivery Method Room Air Room Air BMI result Body Mass Index 30.5 Appearance: Alert. Oriented X3. No acute distress. Eyes: No pallor/icterus ENT: Pharynx normal. Oral Mucosa moist Neck: Normal inspection. Neck supple. CVS: Tachycardia irregularly irregular heart rate , systolic ejection murmur at base,Pulses normal. Respiratory: No respiratory distress. Equal air entry bilateral, no wheezing/rales/rhonchi Abdomen: Soft and nontender. Bowel sounds are present, no mass palpable, no CVA tenderness Skin: Skin warm and dry. Normal skin color. Normal skin turgor. Extremities: Bilateral BKA Neuro: Oriented X 3. No motor deficit. No sensory deficit.No cerebellar signs , cranial nerves II-XII intact Medications Administered Generic Name Dose Route Start Last Admin Trade Name Freq PRN Reason Stop Dose Admin Apixaban 5 mg 10/17/22 23:30 10/17/22 23:58 Apixaban 5 Mg Tablet PO 5 mg BID MATTHEW Administration Furosemide 40 mg 10/17/22 23:30 10/18/22 00:00 Furosemide 40 Mg/4 Ml Vial IVPUSH 40 mg DAILY MATTHEW Administration Protocol Ceftriaxone Sodium 1 gm/ 50 mls @ 100 mls/hr 10/17/22 23:30 10/17/22 23:58 Sodium Chloride IV 100 mls/hr BEDTIME MATTHEW Administration Mirtazapine 7.5 mg 10/17/22 23:30 10/17/22 23:59 Mirtazapine 7.5 Mg Tablet PO 7.5 mg BEDTIME MATTHEW Administration Discontinued Medications Generic Name Dose Route Start Last Admin Trade Name Freq PRN Reason Stop Dose Admin Digoxin 0.25 mg 10/17/22 21:18 10/17/22 21:35 Digoxin 0.5 Mg/2 Ml Ampul IVPUSH 10/17/22 21:19 0.25 mg ONCE ONE Administration Sodium Chloride 500 mls @ 250 mls/hr 10/17/22 21:00 10/17/22 23:14 Ns IVCONT 10/17/22 22:59 Infused .Q2H MATTHEW Infusion Metoprolol Tartrate 5 mg 10/17/22 19:26 10/17/22 19:57 Metoprolol Tartrate 5 Mg/5 Ml Vial IVPUSH 10/17/22 19:27 5 mg ONCE ONE Administration Medical Decision Making Medical Decision Making MDM Narrative: Patient with atrial flutter/fibrillation on social blockers Cardizem 240 and metoprolol 50 mg came for transient hypotension tachycardia responded to digoxin IV. Patient also has elevated BNP chest x-ray showed right pleural effusion without any significant change from last x-ray on 08/29 Case discussed with his hospitalist advised to continue Cardizem and metoprolol and digoxin. Patient has indwelling Downs catheter with bacterial colonization urine culture done on 08/29 was negative no bacteria seen in the urine sample today CBC was normal I do not think patient has UTI at this time urine culture has been sent. Consult Healthcare Provider Management of the patient was discussed with: Hospitalist Lab Data [facility] Lab Attestation statement: I reviewed the patient's lab results. 10/17/22 19:51 10/17/22 19:51 Labs: Lab Results 10/17/22 10/17/22 10/17/22 Range/Units 19:51 19:51 19:51 WBC 8.3 (4.8-10.8) X10*3/uL RBC 4.89 (4.60-5.80) X10*6/uL Hgb 15.1 (14.0-18.0) g/dl Hct 45.2 (42.0-52.0) % MCV 92.4 (80.0-98.0) fL MCH 30.9 (27.0-33.0) pg MCHC 33.4 (31.0-36.0) g/dl RDW 16.4 H (11.0-16.0) % Plt Count 315 (160-400) X10*3/uL MPV 9.0 L (9.4-12.4) fL Immature Gran % (Auto) 0.2 (0.0-0.4) % Neut % (Auto) 61.5 (45-73) % Lymph % (Auto) 23.2 (20-40) % Parker % (Auto) 8.8 (2-11) % Eos % (Auto) 5.2 H (0-4) % Baso % (Auto) 1.1 (0-2) % Lymph # (Auto) 1.9 (1.2-4.9) X10*3/uL Parker # (Auto) 0.7 (0.1-1.2) X10*3/uL Eos # (Auto) 0.4 (0.0-0.4) X10*3/uL Baso # (Auto) 0.1 (0.0-0.2) X10*3/uL Abs Immat Gran (auto) 0.02 (0.00-0.03) X10*3/uL Absolute Neuts (auto) 5.1 (2.0-8.3) x10*3/uL Absolute Nucleated RBC 0.000 (0.0-0.012) X10*3/uL Nucleated RBC % (auto) 0.0 (0.0-0.2) /100WBC PT (10.0-13.1) SEC INR (0.9-1.1) Sodium 142 (135-145) mmol/L Potassium 3.6 (3.3-5.1) mmol/L Chloride 106 (96-108) mmol/L Carbon Dioxide 25 (22-29) mmol/L Anion Gap 15 (12-20) BUN 19 H (9-16) mg/dL Creatinine 1.37 (0.5-1.4) mg/dL Estim Creat Clear Calc 44.6 Estimated GFR 49 Random Glucose 79 (60-115) mg/dL Calcium 8.7 D (8.4-10.2) mg/dL Magnesium 1.8 (1.6-2.6) mg/dL Total Bilirubin 0.6 (0.0-1.0) mg/dL AST 50 H D (5-37) U/L ALT 30 (0-40) U/L Alkaline Phosphatase 193 H (39-117) U/L Troponin I High Sens 21.3 (<3.5-35.0) ng/L B-Natriuretic Peptide (<100) pg/mL Total Protein 6.0 L (6.5-8.0) g/dL Albumin 3.2 L (3.5-5.0) g/dL Urine Color Urine Appearance Urine pH (5.0-9.0) Ur Specific [place] (1.005-1.025) Urine Protein (Neg-Trace) mg/dL Urine Glucose (UA) (Negative) mg/dL Urine Ketones (Negative) mg/dL Urine Blood (Negative) Urine Nitrite (Negative) Ur Leukocyte Esterase (Negative) Urine RBC (0-2) /HPF Urine WBC (0-5) /HPF Ur Squamous Epith Cells (0-2) /HPF Urine Bacteria (None Seen) Hyaline Casts (0-2) /LPF COVID-19 ([facility]) (Negative) COVID-19 Clin Com 10/17/22 10/17/22 10/17/22 Range/Units 19:51 19:51 19:51 WBC (4.8-10.8) X10*3/uL RBC (4.60-5.80) X10*6/uL Hgb (14.0-18.0) g/dl Hct (42.0-52.0) % MCV (80.0-98.0) fL MCH (27.0-33.0) pg MCHC (31.0-36.0) g/dl RDW (11.0-16.0) % Plt Count (160-400) X10*3/uL MPV (9.4-12.4) fL Immature Gran % (Auto) (0.0-0.4) % Neut % (Auto) (45-73) % Lymph % (Auto) (20-40) % Parker % (Auto) (2-11) % Eos % (Auto) (0-4) % Baso % (Auto) (0-2) % Lymph # (Auto) (1.2-4.9) X10*3/uL Parker # (Auto) (0.1-1.2) X10*3/uL Eos # (Auto) (0.0-0.4) X10*3/uL Baso # (Auto) (0.0-0.2) X10*3/uL Abs Immat Gran (auto) (0.00-0.03) X10*3/uL Absolute Neuts (auto) (2.0-8.3) x10*3/uL Absolute Nucleated RBC (0.0-0.012) X10*3/uL Nucleated RBC % (auto) (0.0-0.2) /100WBC PT 13.0 (10.0-13.1) SEC INR 1.1 (0.9-1.1) Sodium (135-145) mmol/L Potassium (3.3-5.1) mmol/L Chloride (96-108) mmol/L Carbon Dioxide (22-29) mmol/L Anion Gap (12-20) BUN (9-16) mg/dL Creatinine (0.5-1.4) mg/dL Estim Creat Clear Calc Estimated GFR Random Glucose (60-115) mg/dL Calcium (8.4-10.2) mg/dL Magnesium (1.6-2.6) mg/dL Total Bilirubin (0.0-1.0) mg/dL AST (5-37) U/L ALT (0-40) U/L Alkaline Phosphatase (39-117) U/L Troponin I High Sens (<3.5-35.0) ng/L B-Natriuretic Peptide 715 H (<100) pg/mL Total Protein (6.5-8.0) g/dL Albumin (3.5-5.0) g/dL Urine Color Urine Appearance Urine pH (5.0-9.0) Ur Specific [place] (1.005-1.025) Urine Protein (Neg-Trace) mg/dL Urine Glucose (UA) (Negative) mg/dL Urine Ketones (Negative) mg/dL Urine Blood (Negative) Urine Nitrite (Negative) Ur Leukocyte Esterase (Negative) Urine RBC (0-2) /HPF Urine WBC (0-5) /HPF Ur Squamous Epith Cells (0-2) /HPF Urine Bacteria (None Seen) Hyaline Casts (0-2) /LPF COVID-19 ([facility]) Negative (Negative) COVID-19 Clin Com See Note 10/17/22 Range/Units 21:50 WBC (4.8-10.8) X10*3/uL RBC (4.60-5.80) X10*6/uL Hgb (14.0-18.0) g/dl Hct (42.0-52.0) % MCV (80.0-98.0) fL MCH (27.0-33.0) pg MCHC (31.0-36.0) g/dl RDW (11.0-16.0) % Plt Count (160-400) X10*3/uL MPV (9.4-12.4) fL Immature Gran % (Auto) (0.0-0.4) % Neut % (Auto) (45-73) % Lymph % (Auto) (20-40) % Parker % (Auto) (2-11) % Eos % (Auto) (0-4) % Baso % (Auto) (0-2) % Lymph # (Auto) (1.2-4.9) X10*3/uL Parker # (Auto) (0.1-1.2) X10*3/uL Eos # (Auto) (0.0-0.4) X10*3/uL Baso # (Auto) (0.0-0.2) X10*3/uL Abs Immat Gran (auto) (0.00-0.03) X10*3/uL Absolute Neuts (auto) (2.0-8.3) x10*3/uL Absolute Nucleated RBC (0.0-0.012) X10*3/uL Nucleated RBC % (auto) (0.0-0.2) /100WBC PT (10.0-13.1) SEC INR (0.9-1.1) Sodium (135-145) mmol/L Potassium (3.3-5.1) mmol/L Chloride (96-108) mmol/L Carbon Dioxide (22-29) mmol/L Anion Gap (12-20) BUN (9-16) mg/dL Creatinine (0.5-1.4) mg/dL Estim Creat Clear Calc Estimated GFR Random Glucose (60-115) mg/dL Calcium (8.4-10.2) mg/dL Magnesium (1.6-2.6) mg/dL Total Bilirubin (0.0-1.0) mg/dL AST (5-37) U/L ALT (0-40) U/L Alkaline Phosphatase (39-117) U/L Troponin I High Sens (<3.5-35.0) ng/L B-Natriuretic Peptide (<100) pg/mL Total Protein (6.5-8.0) g/dL Albumin (3.5-5.0) g/dL Urine Color Yellow Urine Appearance Cloudy Urine pH 5.5 (5.0-9.0) Ur Specific [place] 1.020 (1.005-1.025) Urine Protein Negative (Neg-Trace) mg/dL Urine Glucose (UA) Negative (Negative) mg/dL Urine Ketones Negative (Negative) mg/dL Urine Blood Large (3+) H (Negative) Urine Nitrite Negative (Negative) Ur Leukocyte Esterase Moderate (2+) H (Negative) Urine RBC >20 H (0-2) /HPF Urine WBC 21-50 H (0-5) /HPF Ur Squamous Epith Cells 0-2 (0-2) /HPF Urine Bacteria Trace (None Seen) Hyaline Casts 6-10 (0-2) /LPF COVID-19 ([facility]) (Negative) COVID-19 Clin Com Independent Interpretation I performed an independent interpretation of an: EKG Interpretation: Tachycardic atrial flutter with 2-1 block heart rate 135 beats per minute nonspe cific ST with T-wave changes no acute ischemia Critical Care Time Critical Care Time Critical Care Time: Yes Total Critical Care Time: 55 Attestation: The patient was critically ill with a high probability of imminent or life threatening deterioration. I spent greater than 60 minutes of discontinuous time evaluating the patient,delivering critical care at the bedside, discussing and evaluating pertinent data with consultants. Critical care time does not include time spent performing separately billable procedures or teaching. Total time spent performing critical care was 55 minutes. Discharge Plan Discharge Clinical Impression: Atrial flutter with rapid ventricular response, CHF (congestive heart failure) Patient Disposition: Admitted As Inpatient
[2022-10-17 19:24] VITALS: BP 117/70; PULSE 136; RESP 16; TEMP 36.8; O2SAT 97; BMI 32.6
--- NOTE | 2022-10-17 19:25 | ECG_ITS ---
Test Reason : ARRYTHMIA Blood Pressure : / mmHG Vent. Rate : 135 BPM Atrial Rate : 135 BPM P-R Int : 150 ms QRS Dur : 082 ms QT Int : 332 ms P-R-T Axes : 000 023 236 degrees QTc Int : [address] & T wave abnormality, consider anterior ischemia Abnormal ECG When compared with ECG of 16-AUG-2022 10:26, Premature ventricular complexes are no longer Present Referred By: Luis Steen Electronically Signed By:Juan Alcaraz
[2022-10-17] MEDS: Metoprolol Tartrate 5 MG/5 ML VIAL IVPUSH (19:57)
[2022-10-17 20:01] LABS: MANUAL DIFF FLAG NO
[2022-10-17 20:08] LABS: Basophils Absolute Auto 0.1 X10*3/uL (0.0-0.2); Basophils Percent Auto 1.1 % (0-2); Eosinophils Absolute Auto 0.4 X10*3/uL (0.0-0.4); Eosinophils Percent Auto 5.2 % (0-4); Hematocrit 45.2 % (42.0-52.0); Hemoglobin 15.1 g/dl (14.0-18.0); Imm Gran Abs Auto 0.02 X10*3/uL (0.00-0.03); Imm Gran Pct Auto 0.2 % (0.0-0.4); Lymphocytes Absolute Auto 1.9 X10*3/uL (1.2-4.9); Lymphocytes Percent Auto 23.2 % (20-40); Mean Corpuscular HGB Conc 33.4 g/dl (31.0-36.0); Mean Corpuscular Hemoglobin 30.9 pg (27.0-33.0); Mean Corpuscular Volume 92.4 fL (80.0-98.0); Monocytes Absolute Auto 0.7 X10*3/uL (0.1-1.2); Monocytes Percent Auto 8.8 % (2-11); Neutrophils Absolute Auto 5.1 x10*3/uL (2.0-8.3); Neutrophils Percent Auto 61.5 % (45-73); Platelet Count 315 X10*3/uL (160-400); Red Blood Count 4.89 X10*6/uL (4.60-5.80); Red Cell Distribution Width 16.4 % (11.0-16.0); White Blood Count 8.3 X10*3/uL (4.8-10.8)
[2022-10-17 20:13] LABS: COVID-19 Test Negative (Negative); IDNOW Serial# 16C4AD1C
[2022-10-17 20:17] LABS: Alanine Aminotransferase 30 U/L (0-40); Albumin Level 3.2 g/dL (3.5-5.0); Alkaline Phosphatase 193 U/L (39-117); Anion Gap 15 (12-20); Aspartate Amino Transferase 50 U/L (5-37); Bilirubin Total 0.6 mg/dL (0.0-1.0); Blood Urea Nitrogen 19 mg/dL (9-16); Calcium 8.7 mg/dL (8.4-10.2); Carbon Dioxide 25 mmol/L (22-29); Chloride 106 mmol/L (96-108); Creatinine Clr Calc Pharmacy 44.6; Estimated Glomerular Filt Rate 49; Glucose Random 79 mg/dL (60-115); Magnesium 1.8 mg/dL (1.6-2.6); Potassium 3.6 mmol/L (3.3-5.1); Sodium 142 mmol/L (135-145)
[2022-10-17 20:23] LABS: B Type Natriuretic Peptide 715 pg/mL (<100)
[2022-10-17 20:27] VITALS: BP 100/59; PULSE 131; RESP 16; O2SAT 94
[2022-10-17 20:31] LABS: Troponin-I High Sensitivity 21.3 ng/L (<3.5-35.0)
[2022-10-17 20:53] VITALS: BP 96/45; PULSE 120; RESP 14; O2SAT 97
--- NOTE | 2022-10-17 20:56 | ECG_ITS ---
Test Reason : ARRTHYMIA Blood Pressure : / mmHG Vent. Rate : 134 BPM Atrial Rate : 134 BPM P-R Int : 164 ms QRS Dur : 082 ms QT Int : 326 ms P-R-T Axes : 000 055 -47 degrees QTc Int : [address] & T wave abnormality, consider anterior ischemia Abnormal ECG When compared with ECG of 17-OCT-2022 19:27, No significant change was found Referred By: Luis Steen Electronically Signed By:Juan Alcaraz
[2022-10-17 21:13] LABS: INTERNATIONAL NORM RATIO 1.1 (0.9-1.1)
[2022-10-17] MEDS: 0.9 % Sodium Chloride 500 ML 250 ML IVCONT (21:30)
[2022-10-17] MEDS: Digoxin 0.5 MG/2 ML AMPUL 0.25 MG IVPUSH (21:35)
[2022-10-17 21:50] VITALS: BMI 30.5
[2022-10-17 21:58] LABS: Appearance Urine Cloudy; Color Urine Yellow; Glucose Urine UA Negative (Negative); Leukocyte Esterase Urine Moderate (2+) (Negative); Nitrite Urine Negative (Negative); PH 5.5 (5.0-9.0); UMIC TRIGGER UACC YES; Urine Blood Large (3+) (Negative); Urine Ketones Negative (Negative); Urine Protein Negative (Neg-Trace)
--- NOTE | 2022-10-17 22:06 | PHA.MEDREC ---
Pharmacy Consult ? Medication Reconciliation Pharmacy has completed the medication reconciliation. Spoke with Aura at [facility] to confirm medications. She reported patient on gabapentin 300 mg QHS (last filled in Feb, 2022) where curent script is for 100 mg BID. Patient filled metoprolol ER 50 mg on 09/13/22 but [facility] reported metoprolol ER 25 mg. Reyna Rebolledo, PharmD
[2022-10-17 22:14] LABS: Bacteria Urine Trace (None Seen); RBC Urine >20 /HPF (0-2); Squamous Epithelial Cell Urine 0-2 /HPF (0-2); UACC Culture Trigger YES; WBC Urine 21-50 /HPF (0-5)
[2022-10-17 22:20] VITALS: BP 105/67; PULSE 133; RESP 14; TEMP 37.1; O2SAT 97
--- NOTE | 2022-10-17 22:51 | PC.NURSE ---
pt resting quietly while watching tv, no apparent distress, denies pain
[2022-10-17 23:09] VITALS: BP 97/41; PULSE 117; RESP 17; TEMP 36.6; O2SAT 98
--- NOTE | 2022-10-17 23:19 | PM.IMHP ---
History of Present Illness Date of Service: 10/17/22 Chief Complaint: hypotension 87-year-old male with past medical history of CHF, HTN, HLD, paroxysmal AFib, bilateral below-knee amputation, diabetes, GERD, peripheral vascular disease, urine retention with chronic Downs catheter in place presents to the hospital from home after visiting nurse noted him to have low blood pressure in a fast heart rate. Patient is Serbian-speaking mostly, no lang interpreter was able to be found, but he able to understanding way manuel communicate a little bit and states that he is feeling well, sometimes has palpitations but currently has no chest pain, no dizziness, no shortness of breath, no nausea or vomiting, no abdominal pain and no urinary symptoms as he has a Downs catheter in place. On arrival to the ED patient was noted to have a heart rate in the 130s. He was found to be in a flutter AFib with RVR Labs are significant for troponin of 21, BNP of 715. UA positive patient initially given IV metoprolol with drop in his BP, he is on home Cardizem of 240 mg IV digoxin was given to the patient with improvement his heart rate spoke to Cardiology, patient given his home metoprolol BP stable Review of Systems Review of Systems: Yes all other systems are reviewed and are negative [facility] Medical History Anxiety Atherosclerotic cardiovascular disease Benign essential hypertension BPH (benign prostatic hyperplasia) COVID-19 vaccine series completed Depression Depression GERD (gastroesophageal reflux disease) Hypertension Neurogenic bladder Peripheral vascular disease Pure hypercholesterolemia Urinary retention Family History Father Colon cancer Mother Asthma Son HTN (hypertension) Surgical History H/O colonoscopy History of below-knee amputation of both lower extremities History of bladder surgery Social History Household Members: Children Housing: Apartment Housing Other:: 2 family home-son & DIL 2nd floor Are you a primary transitional care nurse to a significant other at home: No Do you presently have visiting nurse or other home services: Yes Alcohol intake: never Patient Tobacco Use Status: Never used Tobacco Smoked in Last 30 Days: No e-Cigarette/Vaping Use: Never Used Second Hand Smoke Exposure: No Use of substances other than those prescribed or required for medical reasons: No Advance Directives: No Advance Directives Information Provided: No service: No Current occupational status: disabled Cognitive needs: No Hearing needs: Yes Vision needs: Yes Meds Allergies Allergy/AdvReac Type Severity Reaction Status Date / Time No Known Allergies Allergy Verified 08/15/22 15:24 Active Medications: Current Medications Acetaminophen (Acetaminophen 325 Mg Tablet) 650 mg PO Q6H PRN PRN Reason: Pain, Mild (Pain Scale 1-3) Apixaban (Apixaban 5 Mg Tablet) 5 mg PO BID [facility] Aspirin (Aspirin Enteric Coated 81 Mg Tablet.) 81 mg PO DAILY [facility] Atorvastatin Calcium (Atorvastatin Calcium 40 Mg Tablet) 40 mg PO DAILY [facility] Docusate Sodium (Docusate Sodium 100 Mg Capsule) 100 mg PO DAILY PRN PRN Reason: Constipation Duloxetine HCl (Duloxetine Hcl 30 Mg Capsule.) 30 mg PO QAM [facility] Furosemide (Furosemide 40 Mg/4 Ml Vial) 40 mg IVPUSH DAILY [facility]; Protocol Gabapentin (Gabapentin 300 Mg Capsule) 300 mg PO BEDTIME [facility] Ceftriaxone Sodium 1 gm/ (Sodium Chloride) 50 mls @ 100 mls/hr IV Q24H [facility] Metoprolol Succinate (Metoprolol Succinate Er 25 Mg Tab.Er.24h) 25 mg PO DAILY [facility]; Protocol Mirtazapine (Mirtazapine 7.5 Mg Tablet) 7.5 mg PO BEDTIME [facility] Non-Formulary Medication (Dexlansoprazole) 60 mg PO DAILY [facility] Ondansetron HCl (Ondansetron Hcl 4 Mg/2 Ml Vial) 4 mg IVPUSH Q8H PRN PRN Reason: Nausea and Vomiting Sodium Chloride (0.9 % Sodium Chloride Flush 3 Ml Syringe) 3 ml IVFLUSH QSHIFT [facility] Home Medications Medication Instructions Recorded Confirmed Last Taken Type dexlansoprazole 60 mg 60 mg PO DAILY 10/17/22 10/17/22 Unknown History capsule,biphase delayed release docusate sodium 100 mg capsule 100 mg PO DAILY PRN Constipation 10/17/22 10/17/22 Unknown History (Colace) duloxetine 30 mg capsule,delayed 1 cap PO QAM 10/17/22 10/17/22 Unknown History release gabapentin 100 mg capsule 300 mg PO BEDTIME 01/10/23 01/10/23 Unknown History metoprolol succinate 25 mg 1 tab PO DAILY 10/17/22 10/17/22 Unknown History tablet,extended release 24 hr sulfamethoxazole 800 1 tab PO QMONTH 10/17/22 10/17/22 Unknown History mg-trimethoprim 160 mg tablet Physical Exam Vital Signs and Narrative: Vital Signs: Last Vital Signs Temp 98.7 F 10/17/22 22:20 Pulse 133 H 10/17/22 22:20 Resp 14 10/17/22 22:20 BP 105/67 10/17/22 22:20 Pulse Ox 97 10/17/22 22:20 O2 Del Method 10/17/22 22:20 BMI result Body Mass Index 30.5 Const: General: cooperative and no acute distress Orientation/consciousness: patient oriented x3 Eyes: General: appearance normal, both eyes and all related structures Resp: Effort & Inspection: normal respiratory effort Auscultation: clear to auscultation bilaterally Cardio: Rate: regular rate Rhythm: regular rhythm GI: Palpation (GI): Soft to palpation Auscultation: normal bowel sounds : Other: Downs catheter in place Skin: General skin exam: no rashes or lesions noted Neuro: General: patient oriented x3 Cognition (Neuro): normal cognition Extrem: Other: bilateral below-knee amputation Results Labs 10/17/22 19:51 10/17/22 19:51 Labs: Laboratory Results - last 24 hr 10/17/22 10/17/22 10/17/22 19:51 19:51 19:51 MCV 92.4 MCH 30.9 MCHC 33.4 RDW 16.4 H Plt Count 315 MPV 9.0 L Immature Gran % (Auto) 0.2 Neut % (Auto) 61.5 Lymph % (Auto) 23.2 [place] % (Auto) 8.8 Eos % (Auto) 5.2 H Baso % (Auto) 1.1 Lymph # (Auto) 1.9 [place] # (Auto) 0.7 Eos # (Auto) 0.4 Baso # (Auto) 0.1 Abs Immat Gran (auto) 0.02 Absolute Neuts (auto) 5.1 Absolute Nucleated RBC 0.000 Nucleated RBC % (auto) 0.0 PT INR Anion Gap 15 Estim Creat Clear Calc 44.6 Estimated GFR 49 Random Glucose 79 Calcium 8.7 D Magnesium 1.8 Total Bilirubin 0.6 AST 50 H D ALT 30 Alkaline Phosphatase 193 H Troponin I High Sens 21.3 B-Natriuretic Peptide Total Protein 6.0 L Albumin 3.2 L Urine Color Urine Appearance Urine pH Ur Specific Merna Urine Protein Urine Glucose (UA) Urine Ketones Urine Blood Urine Nitrite Ur Leukocyte Esterase Urine RBC Urine WBC Ur Squamous Epith Cells Urine Bacteria Hyaline Casts COVID-19 ([facility]) COVID-19 Clin Com 10/17/22 10/17/22 10/17/22 19:51 19:51 19:51 MCV MCH MCHC RDW Plt Count MPV Immature Gran % (Auto) Neut % (Auto) Lymph % (Auto) [place] % (Auto) Eos % (Auto) Baso % (Auto) Lymph # (Auto) [place] # (Auto) Eos # (Auto) Baso # (Auto) Abs Immat Gran (auto) Absolute Neuts (auto) Absolute Nucleated RBC Nucleated RBC % (auto) PT 13.0 INR 1.1 Anion Gap Estim Creat Clear Calc Estimated GFR Random Glucose Calcium Magnesium Total Bilirubin AST ALT Alkaline Phosphatase Troponin I High Sens B-Natriuretic Peptide 715 H Total Protein Albumin Urine Color Urine Appearance Urine pH Ur Specific Merna Urine Protein Urine Glucose (UA) Urine Ketones Urine Blood Urine Nitrite Ur Leukocyte Esterase Urine RBC Urine WBC Ur Squamous Epith Cells Urine Bacteria Hyaline Casts COVID-19 ([facility]) Negative COVID-19 Clin Com See Note 10/17/22 21:50 MCV MCH MCHC RDW Plt Count MPV Immature Gran % (Auto) Neut % (Auto) Lymph % (Auto) [place] % (Auto) Eos % (Auto) Baso % (Auto) Lymph # (Auto) [place] # (Auto) Eos # (Auto) Baso # (Auto) Abs Immat Gran (auto) Absolute Neuts (auto) Absolute Nucleated RBC Nucleated RBC % (auto) PT INR Anion Gap Estim Creat Clear Calc Estimated GFR Random Glucose Calcium Magnesium Total Bilirubin AST ALT Alkaline Phosphatase Troponin I High Sens B-Natriuretic Peptide Total Protein Albumin Urine Color Yellow Urine Appearance Cloudy Urine pH 5.5 Ur Specific Merna 1.020 Urine Protein Negative Urine Glucose (UA) Negative Urine Ketones Negative Urine Blood Large (3+) H Urine Nitrite Negative Ur Leukocyte Esterase Moderate (2+) H Urine RBC >20 H Urine WBC 21-50 H Ur Squamous Epith Cells 0-2 Urine Bacteria Trace Hyaline Casts 6-10 COVID-19 ([facility]) COVID-19 Clin Com Imaging Radiologist's Impressions: Impressions Chest X-Ray 10/17/22 20:35 IMPRESSION: Persistent right pleural effusion and right basilar atelectasis. No significant change since prior chest x-ray 08/16/2022. Assessment and Plan (1) Atrial flutter with rapid ventricular response: Status: Acute (2) CHF (congestive heart failure): Status: Acute Plan 87-year-old male with past medical history of paroxysmal AFib presents to the hospital found to have AFib/aflutter with RVR # AFib/a flutter with RVR - possibly secondary to CHF versus UTI - treated with IV metoprolol as well as digoxin with improvement his heart rate - discussed with Cardiology, resume home metoprolol, hold diltiazem - echocardiogram - telemetry - Continue elquis # acute CHF exacerbation - patient has no clinical evidence of volume overload but has pleural effusion on chest x-ray as well as elevated BNP - patient will be given furosemide - strict I&O, daily weight, low-sodium diet - cardiology on consult # diabetes - low-dose sliding scale insulin - diabetic diet DVT ppx: eliquis given pt need for monitoring of CHF as well as rapid A fib/flutter will need 2 nights of inpatient hospital room Time Spent With Patient Time: Total time managing care of this patient today ____ minutes. Quality Stroke Does the patient have a stroke diagnosis?: No VTE Prior VTE?: No VTE Risk Level:: Medical - moderate - high VTE Device Contraindication: Treatment Not Indicated VTE Drug Contraindication: N/A - Med Ordered
[2022-10-17] MEDS: cefTRIAXone sodium 1 GM in 0.9 % Sodium Chloride 50 ML IV (23:58)
[2022-10-17] MEDS: Gabapentin 300 MG CAPSULE PO (23:58)
[2022-10-17] MEDS: Apixaban 5 MG TABLET PO (23:58)
[2022-10-17] MEDS: Mirtazapine 7.5 MG TABLET PO (23:59)
[2022-10-18] VITALS (9 sets, daily range): BP systolic 101–138; BP diastolic 51–77; PULSE 67–109; RESP 14–20; TEMP 36.1–37.1; O2SAT 93–100
--- NOTE | 2022-10-18 | ECG_ITS ---
Test Reason : aflutter Blood Pressure : / mmHG Vent. Rate : 078 BPM Atrial Rate : 288 BPM P-R Int : 000 ms QRS Dur : 088 ms QT Int : 372 ms P-R-T Axes : 053 045 130 degrees QTc Int : 424 ms Atrial flutter with variable A-V block ST & T wave abnormality, consider anterolateral ischemia Abnormal ECG When compared with ECG of 17-OCT-2022 21:39, No significant change was found Referred By: Luis Steen Electronically Signed By:Juan Alcaraz
[2022-10-18] MEDS: 0.9 % Sodium Chloride Flush 3 ML SYRINGE IVFLUSH ×4 (00:25→20:52)
--- NOTE | 2022-10-18 03:11 | PC.NURSE ---
This life underwriter assumed care at this time. PT awakens upon verbal stimuli. A&Ox3, denies any pain. Suprapubic cath in place, draining clear yellow fluid.
[2022-10-18] MEDS: Metoprolol Succinate ER 25 MG TAB.ER.24H PO (04:43)
--- NOTE | 2022-10-18 04:44 | PC.NURSE ---
HR intermittently keeps going up to 135 about every 3 minutes, then drops down to 90's, provider notified. New order of metoprolol given as documented.
--- NOTE | 2022-10-18 06:03 | PC.NURSE ---
RN to RN report given. PT being transported by fire protection engineering technician to room 486. PT aware of plan.
--- NOTE | 2022-10-18 07:00 | CA_ITS ---
Transthoracic Echocardiogram Patient (Last, First, Middle): Kg Alexander, Gender: Male Date of : 1935 Age: 87 Procedure Date: 10/18/2022 Procedure Type: Transthoracic Echocardiogram Location: [facility] Height: 152.4 cm Weight: 70.76 kg BSA: 1.68 m2 Heart Rate: 78 bpm BP: 112 / 52 mmHg Community Sports Coordinator: SUKH Referring MD: Duy Friend MD Symptoms: CHF Study Quality: Good ECG Rhythm: Arrhythmia Conclusions: - Normal left ventricular cavity size. There is mildly increased left ventricular wall thickness. The left ventricular systolic function is moderate to severely decreased. The visually estimated ejection fraction is between 25-30%. - Normal right ventricular cavity size. There is mildly decreased right ventricular systolic function. - There is moderate aortic valve stenosis. The peak aortic velocity is 1.23 m/s. The mean gradient is 4 mmHg. The aortic valve area is 1.19 cm2. Findings Left Ventricle Normal left ventricular cavity size. There is mildly increased left ventricular wall thickness. The left ventricular systolic function is moderate to severely decreased. The visually estimated ejection fraction is between 25-30%. There is moderate global hypokinesis. Diastolic function is indeterminate on the basis of available data. Right Ventricle Normal right ventricular cavity size. There is mildly decreased right ventricular systolic function. Atria The left atrium is mildly dilated. The right atrium is normal in size. Aortic Valve There is a normal trileaflet aortic valve. There is moderate calcification of the aortic valve. There is moderate thickening of the aortic valve. There is moderate aortic valve stenosis. The peak aortic velocity is 1.23 m/s. The mean gradient is 4 mmHg. The aortic valve area is 1.19 cm2. There is no aortic valve regurgitation. Mitral Valve Likely normal mitral valve structure and function. There is trace mitral valve regurgitation. There is no mitral valve stenosis. Pulmonic Valve The pulmonic valve was not well visualized. Tricuspid Valve Normal tricuspid valve structure and function. There is trace tricuspid valve regurgitation. Normal right atrial pressure. There is no evidence of pulmonary hypertension. Great Vessels All visible segments of the aorta are normal in size. The visualized portions of the pulmonary artery and branches are normal. Venous The inferior vena cava is normal in size and collapses greater than 50% with inspiration. Pericardium/Pleural There is no evidence of pericardial effusion. Prior Study Comparison No prior study available for comparison. Measurements 2D Linear Measurements IVSd: 1.35 0.6-0.9/0.6-1.0 cm LVIDd: 4.52 3.9-5.3/4.2-5.9 cm LVIDd Index: 2.69 2.4-3.2/2.2-3.1 cm/m2 LVIDs: 3.97 2.0-3.6 cm LVPWd: 1.27 0.7-1.1 cm LA Diam: 3.70 2.7-3.8/3.0-4.0 cm LAIDs Index: 2.20 1.5-2.3 cm/m2 LV Mass: 282.51 67-162/88-224 g LV Mass Index: 168.16 43-95/49-115 g/m2 LVOT Diam: 2.00 3.0+(-)1.3 cm 2D Systolic Function EF 4C: 24.10 >55% EF 2C: 28.80 >55% EF BiP: 28.40 >55% Mitral Valve MV Pk E: 0.57 MV PK A: 0.30 MV Decel Time: 166.00 E/A: 1.90 PHT: 49.00 MVA PHT: 4.49 Decel [place]: 3.40 Aortic Valve AoV Pk Miguel: 1.23 AoV Mn Miguel: 0.87 AoV VTI: 0.23 AoV Pk Grad: 6.00 Aov Mn Grad: 4.00 JH Cont.VTI: 1.19 LVOT LVOT Pk Miguel: 0.46 LVOT Mn Miguel: 0.32 LVOT VTI: 0.09 LVOT Pk Grad: 1.00 LVOT Mn Grad: 0.00 LVOT Diam: 2.00 LVOT Area: 3.14 Diastolic Function MV Pk E: 0.57 MV Pk A: 0.30 E/A: 1.90 Right Ventricle TAPSE (mm): 8.76 TVS' Miguel: 6.05 Tricuspid Valve TR Pk Miguel: 2.17 TR Pk Grad: 19.00 RA Press: 3.00 RVSP: 22.00 Great Vessels Aorta Sinus of Valsalva: 3.70 2.0-3.5 cm Ao Asc: 3.40 2.1-3.4 cm Pulmonary Valve PV Pk Miguel: 0.55 Peak PV Grad: 1.00 Updated in Other Vendor System with Status of Final Juan Alcaraz MD electronically signed on 10/18/2022 12:15:13 PM with status of Final
[2022-10-18 08:04] LABS: Glucose, Whole Blood 70 mg/dL (60-115)
[2022-10-18 09:10] LABS: Alanine Aminotransferase 28 U/L (0-40); Albumin Level 2.9 g/dL (3.5-5.0); Alkaline Phosphatase 189 U/L (39-117); Anion Gap 13 (12-20); Aspartate Amino Transferase 53 U/L (5-37); Bilirubin Total 0.8 mg/dL (0.0-1.0); Blood Urea Nitrogen 18 mg/dL (9-16); Calcium 8.5 mg/dL (8.4-10.2); Carbon Dioxide 24 mmol/L (22-29); Chloride 109 mmol/L (96-108); Creatinine Clr Calc Pharmacy 37.1; Estimated Glomerular Filt Rate 58; Glucose Random 68 mg/dL (60-115); Potassium 3.9 mmol/L (3.3-5.1); Sodium 142 mmol/L (135-145); Total Protein 5.6 g/dL (6.5-8.0)
[2022-10-18] MEDS: DULoxetine HCl 30 MG CAPSULE.DR PO (09:10)
[2022-10-18] MEDS: Apixaban 5 MG TABLET PO ×2 (09:10→20:51)
[2022-10-18] MEDS: Aspirin Enteric Coated 81 MG TABLET.DR PO (09:10)
[2022-10-18] MEDS: Furosemide 40 MG/4 ML VIAL IVPUSH ×2 (09:10)
[2022-10-18] MEDS: Atorvastatin Calcium 40 MG TABLET PO (09:10)
[2022-10-18] MEDS: Omeprazole 40 MG CAPSULE.DR PO (09:10)
--- NOTE | 2022-10-18 11:11 | PM.CNCAR ---
History of Present Illness History of Present Illness Date of Service: 10/18/22 Requesting physician: Duy Friend Chief complaint: A fib w RVR Narrative: [age] year gentleman presenting with atrial flutter. He was seen in the hospital in August 2022 when he presented with confusion and urinary tract infection. He was noticed to be in atrial flutter at that time too. He was on anticoagulation and was discharged home with diltiazem and metoprolol. He is presenting now because the visiting nurse notices blood pressure to be low. The patient does not remember michelle in the hospital. He is quite sleepy and tired and history was quite limited. Reviewing the chart it appears he was hypotensive and tachycardic and was brought in. He was given metoprolol in the ER and had mild drop in blood pressure. He was given digoxin overnight and his diltiazem was discontinued. He had echocardiogram done today which is showing that his ejection fraction is 25-30%. He has moderate aortic valve stenosis. Right ventricular function is also mildly reduced. [facility] Past Medical History Medical History Anxiety Atherosclerotic cardiovascular disease Benign essential hypertension BPH (benign prostatic hyperplasia) COVID-19 vaccine series completed Depression Depression GERD (gastroesophageal reflux disease) Hypertension Neurogenic bladder Peripheral vascular disease Pure hypercholesterolemia Urinary retention Family History Family History Father Colon cancer Mother Asthma Son HTN (hypertension) Surgical History Surgical History H/O colonoscopy History of below-knee amputation of both lower extremities History of bladder surgery Social History Social History Household Members: Family Housing: Apartment Housing Other:: 2 family home-son & DIL 2nd floor Are you a primary career representative to a significant other at home: No Do you presently have visiting nurse or other home services: Yes Alcohol intake: never Patient Tobacco Use Status: Never used Tobacco Smoked in Last 30 Days: No e-Cigarette/Vaping Use: Never Used Second Hand Smoke Exposure: No Use of substances other than those prescribed or required for medical reasons: No Currently Displaying Signs/Symptoms of Drug Intoxication Withdrawal: No Have you been hit, kicked, punched, or otherwise hurt by someone within the past year? If so, by whom?: No Do you feel safe in your current relationship?: No Current Relationship Is there a partner from a previous relationship who is making you feel unsafe now?: No Are you made to feel afraid or neglected: No Advance Directives: No Advance Directives Information Provided: No Do you have thoughts of harming others: None Do you have a plan to hurt others: No Plan Recently lost weight without trying: No Nutrition Risks: No Nutritional Risk service: No Current occupational status: disabled Cognitive needs: No Hearing needs: Yes Vision needs: Yes Meds Allergies Allergy/AdvReac Type Severity Reaction Status Date / Time No Known Allergies Allergy Verified 08/15/22 15:24 Active Medications: Current Medications Acetaminophen (Acetaminophen 325 Mg Tablet) 650 mg PO Q6H PRN PRN Reason: Pain, Mild (Pain Scale 1-3) Apixaban (Apixaban 5 Mg Tablet) 5 mg PO BID [facility] Last Admin: 10/18/22 09:10 Dose: 5 mg Aspirin (Aspirin Enteric Coated 81 Mg Tablet.) 81 mg PO DAILY [facility] Last Admin: 10/18/22 09:10 Dose: 81 mg Atorvastatin Calcium (Atorvastatin Calcium 40 Mg Tablet) 40 mg PO DAILY [facility] Last Admin: 10/18/22 09:10 Dose: 40 mg Dextrose (Dextrose 50 % 25 Gm/50 Ml Syringe) 25 gm IVPUSH Q15M PRN; Protocol PRN Reason: per Hypoglycemia Standing Ord. Docusate Sodium (Docusate Sodium 100 Mg Capsule) 100 mg PO DAILY PRN PRN Reason: Constipation Duloxetine HCl (Duloxetine Hcl 30 Mg Capsule.) 30 mg PO DAILY [facility] Last Admin: 10/18/22 09:10 Dose: 30 mg Furosemide (Furosemide 40 Mg/4 Ml Vial) 40 mg IVPUSH DAILY [facility]; Protocol Last Admin: 10/18/22 09:10 Dose: 40 mg Gabapentin (Gabapentin 300 Mg Capsule) 300 mg PO BEDTIME [facility] Last Admin: 10/17/22 23:58 Dose: 300 mg Glucose (Glucose Gel 15 Gm Gel..Gram.) 15 gm PO Q15M PRN; Protocol PRN Reason: per Hypoglycemia Standing Ord. Ceftriaxone Sodium 1 gm/ (Sodium Chloride) 50 mls @ 100 mls/hr IV BEDTIME [facility] Last Infusion: 10/18/22 00:47 Dose: Infused Insulin Human Lispro (Insulin Lispro 100 Unit/Ml 3 Ml Vial) 0 unit SUBCUT QIDACHS [facility]; Protocol Last Admin: 10/18/22 08:06 Dose: Not Given Metoprolol Succinate (Metoprolol Succinate Er 25 Mg Tab.Er.24h) 25 mg PO DAILY [facility]; Protocol Last Admin: 10/18/22 04:43 Dose: 25 mg Mirtazapine (Mirtazapine 7.5 Mg Tablet) 7.5 mg PO BEDTIME [facility] Last Admin: 10/17/22 23:59 Dose: 7.5 mg Omeprazole (Omeprazole 40 Mg Capsule.Dr) 40 mg PO DAILY [facility] Last Admin: 10/18/22 09:10 Dose: 40 mg Ondansetron HCl (Ondansetron Hcl 4 Mg/2 Ml Vial) 4 mg IVPUSH Q8H PRN PRN Reason: Nausea and Vomiting Sodium Chloride (0.9 % Sodium Chloride Flush 3 Ml Syringe) 3 ml IVFLUSH QSHIFT [facility] Last Admin: 10/18/22 09:10 Dose: 3 ml Home Medications Medication Instructions Recorded Confirmed Last Taken Type dexlansoprazole 60 mg 60 mg PO DAILY 10/17/22 10/17/22 Unknown History capsule,biphase delayed release docusate sodium 100 mg capsule 100 mg PO DAILY PRN Constipation 10/17/22 10/17/22 Unknown History (Colace) duloxetine 30 mg capsule,delayed 1 cap PO QAM 10/17/22 10/17/22 Unknown History release gabapentin 100 mg capsule 300 mg PO BEDTIME 10/17/22 10/17/22 Unknown History metoprolol succinate 25 mg 1 tab PO DAILY 10/17/22 10/17/22 Unknown History tablet,extended release 24 hr sulfamethoxazole 800 1 tab PO QMONTH 10/17/22 10/17/22 Unknown History mg-trimethoprim 160 mg tablet Physical Exam Vital Signs: Vital Signs: Last Vital Signs Temp 96.9 F 10/18/22 07:35 Pulse 68 10/18/22 07:35 Resp 18 10/18/22 07:35 BP 107/65 10/18/22 07:35 Pulse Ox 93 10/18/22 07:35 O2 Del Method 10/18/22 07:35 BMI result Body Mass Index 30.5 GENERAL APPEARANCE: in no acute distress. Lying flat in bed. NECK: no carotid bruit, no significant jugular venous distention. SKIN: no suspicious lesions, warm and dry. HEART: no murmurs, irregular rate and rhythm. LUNGS: Clear to auscultation. ABDOMEN: soft, nontender. EXTREMITIES: Bilateral below-knee amputation. Objective Labs and Meds 10/17/22 19:51 10/18/22 08:38 Lab results: Laboratory Results - last 24 hr 10/17/22 10/17/22 10/17/22 19:51 19:51 19:51 WBC 8.3 RBC 4.89 Hgb 15.1 Hct 45.2 MCV 92.4 MCH 30.9 MCHC 33.4 RDW 16.4 H Plt Count 315 MPV 9.0 L Immature Gran % (Auto) 0.2 Neut % (Auto) 61.5 Lymph % (Auto) 23.2 [place] % (Auto) 8.8 Eos % (Auto) 5.2 H Baso % (Auto) 1.1 Lymph # (Auto) 1.9 [place] # (Auto) 0.7 Eos # (Auto) 0.4 Baso # (Auto) 0.1 Abs Immat Gran (auto) 0.02 Absolute Neuts (auto) 5.1 Absolute Nucleated RBC 0.000 Nucleated RBC % (auto) 0.0 PT INR Sodium 142 Potassium 3.6 Chloride 106 Carbon Dioxide 25 Anion Gap 15 BUN 19 H Creatinine 1.37 Estim Creat Clear Calc 44.6 Estimated GFR 49 POC Glucose Random Glucose 79 Calcium 8.7 D Magnesium 1.8 Total Bilirubin 0.6 AST 50 H D ALT 30 Alkaline Phosphatase 193 H Troponin I High Sens 21.3 B-Natriuretic Peptide Total Protein 6.0 L Albumin 3.2 L Urine Color Urine Appearance Urine pH Ur Specific [place] Urine Protein Urine Glucose (UA) Urine Ketones Urine Blood Urine Nitrite Ur Leukocyte Esterase Urine RBC Urine WBC Ur Squamous Epith Cells Urine Bacteria Hyaline Casts COVID-19 ([facility]) COVID-19 Clin Com 10/17/22 10/17/22 10/17/22 19:51 19:51 19:51 WBC RBC Hgb Hct MCV MCH MCHC RDW Plt Count MPV Immature Gran % (Auto) Neut % (Auto) Lymph % (Auto) [place] % (Auto) Eos % (Auto) Baso % (Auto) Lymph # (Auto) [place] # (Auto) Eos # (Auto) Baso # (Auto) Abs Immat Gran (auto) Absolute Neuts (auto) Absolute Nucleated RBC Nucleated RBC % (auto) PT 13.0 INR 1.1 Sodium Potassium Chloride Carbon Dioxide Anion Gap BUN Creatinine Estim Creat Clear Calc Estimated GFR POC Glucose Random Glucose Calcium Magnesium Total Bilirubin AST ALT Alkaline Phosphatase Troponin I High Sens B-Natriuretic Peptide 715 H Total Protein Albumin Urine Color Urine Appearance Urine pH Ur Specific [place] Urine Protein Urine Glucose (UA) Urine Ketones Urine Blood Urine Nitrite Ur Leukocyte Esterase Urine RBC Urine WBC Ur Squamous Epith Cells Urine Bacteria Hyaline Casts COVID-19 ([facility]) Negative COVID-19 Clin Com See Note 10/17/22 10/18/22 10/18/22 21:50 08:01 08:38 WBC RBC Hgb Hct MCV MCH MCHC RDW Plt Count MPV Immature Gran % (Auto) Neut % (Auto) Lymph % (Auto) [place] % (Auto) Eos % (Auto) Baso % (Auto) Lymph # (Auto) [place] # (Auto) Eos # (Auto) Baso # (Auto) Abs Immat Gran (auto) Absolute Neuts (auto) Absolute Nucleated RBC Nucleated RBC % (auto) PT INR Sodium 142 Potassium 3.9 Chloride 109 H Carbon Dioxide 24 Anion Gap 13 BUN 18 H Creatinine 1.20 Estim Creat Clear Calc 37.1 Estimated GFR 58 POC Glucose 70 Random Glucose 68 Calcium 8.5 Magnesium Total Bilirubin 0.8 AST 53 H ALT 28 Alkaline Phosphatase 189 H Troponin I High Sens B-Natriuretic Peptide Total Protein 5.6 L Albumin 2.9 L Urine Color Yellow Urine Appearance Cloudy Urine pH 5.5 Ur Specific [place] 1.020 Urine Protein Negative Urine Glucose (UA) Negative Urine Ketones Negative Urine Blood Large (3+) H Urine Nitrite Negative Ur Leukocyte Esterase Moderate (2+) H Urine RBC >20 H Urine WBC 21-50 H Ur Squamous Epith Cells 0-2 Urine Bacteria Trace Hyaline Casts 6-10 COVID-19 ([facility]) COVID-19 Clin Com Imaging Radiologist's impression: Impressions Chest X-Ray 10/17/22 20:35 IMPRESSION: Persistent right pleural effusion and right basilar atelectasis. No significant change since prior chest x-ray 08/16/2022. Assessment and Plan (1) Atrial flutter with rapid ventricular response: Status: Acute (2) CHF (congestive heart failure): Status: Acute (3) Cardiomyopathy: Status: Acute Plan 87-year-old gentleman who is presenting for atrial flutter. He has known history of atrial flutter and was previously rate controlled with Cardizem and metoprolol. He was on Eliquis 5 mg twice a day. Patient is not very interactive and history is quite limited. Overall appears stable and denying any symptoms. Chest x-ray has shown effusions and he is on Lasix 40 mg IV once a day. His echocardiogram is showing evidence of cardiomyopathy with ejection fraction of 25 30%. He also has moderate aortic valve stenosis. We have discontinued his Cardizem on admission with the same thought process that he may have underlying cardiomyopathy. Continue metoprolol 25 mg daily. Start him on digoxin 125 mcg every other day. He has been on Eliquis for anticoagulation which should be continued. Patient is quite confused and has multiple comorbidities. He is unable to partake in any discussions and I think we will have to discuss with his healthcare proxy (if any) regarding cardioversion and other workup for cardiomyopathy. He appears quite frail and I think conservative management should be pursued. Thank you for allowing me to participate in the care of your patient. Please feel free to contact me if you have any questions. Time Spent With Patient Time: Total time managing care of this patient today ____ minutes. Procedures Date of Service Date of Service: 10/18/22
[2022-10-18 11:32] LABS: Glucose, Whole Blood 63 mg/dL (60-115)
[2022-10-18] MEDS: Dextrose 50 % 25 GM/50 ML SYRINGE IVPUSH (11:43)
[2022-10-18 12:34] LABS: Glucose, Whole Blood 139 mg/dL (60-115)
[2022-10-18] MEDS: Digoxin 0.125 MG TABLET PO (13:13)
--- NOTE | 2022-10-18 14:32 | MHC.CM.PN ---
IMM 10/17/22 Male 87 Lives with his on 1st floor of sons 2 family. Son and DIL live on 2nd floor. The patient is dependent with care. Adrián LE BKA, WC bound. 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 Patient is active with [facility]. DP home w resumption of services via BLS. [facility] x2 HCP on file . CM will follow.
--- NOTE | 2022-10-18 15:26 | HO.PM.IMPN ---
Subjective Subjective Date of Service: 10/18/22 Interval History: AFib, CHF exacerbation Review of Systems Shortness of breath is somewhat better, heart rate is also slowly improving. Denies any chest pain or abdominal pain or nausea or vomiting short of breath with some exertion Physical Exam Vital Signs: Vital Signs: Last Vital Signs Temp 97.9 F 10/18/22 15:22 Pulse 89 10/18/22 15:22 Resp 18 10/18/22 15:22 BP 101/75 10/18/22 15:22 Pulse Ox 93 10/18/22 15:22 O2 Del Method 10/18/22 15:22 BMI result Body Mass Index 30.5 Appearance: Alert.? Oriented X3.? not in distress. cvs: rrr, [id number] ,jvd present res: clear to auscultation ,no rhonchii or wheezing abd: no rebound or guarding ,nt, bs present. ext pulses present , no cyanosis ,mild edema . neuro: axo3 , nonfocal. Objective Data Active Medications Acetaminophen (Acetaminophen 325 Mg Tablet) 650 mg PO Q6H PRN PRN Reason: Pain, Mild (Pain Scale 1-3) Apixaban (Apixaban 5 Mg Tablet) 5 mg PO BID [facility] Last Admin: 10/18/22 09:10 Dose: 5 mg Documented By: OLIVIER Aspirin (Aspirin Enteric Coated 81 Mg Tablet.) 81 mg PO DAILY [facility] Last Admin: 10/18/22 09:10 Dose: 81 mg Documented By: OLIVIER Atorvastatin Calcium (Atorvastatin Calcium 40 Mg Tablet) 40 mg PO DAILY [facility] Last Admin: 10/18/22 09:10 Dose: 40 mg Documented By: OLVIIER Dextrose (Dextrose 50 % 25 Gm/50 Ml Syringe) 25 gm IVPUSH Q15M PRN; Protocol PRN Reason: per Hypoglycemia Standing Ord. Last Admin: 10/18/22 11:43 Dose: 25 gm Documented By: OLIVIER Dextrose (Dextrose 50 % 25 Gm/50 Ml Syringe) 25 gm IVPUSH Q15M PRN PRN Reason: per Hypoglycemia Standing Ord. Digoxin (Digoxin 0.125 Mg Tablet) 0.125 mg PO Q2D [facility] Last Admin: 10/18/22 13:13 Dose: 0.125 mg Documented By: OLIVIER Docusate Sodium (Docusate Sodium 100 Mg Capsule) 100 mg PO DAILY PRN PRN Reason: Constipation Duloxetine HCl (Duloxetine Hcl 30 Mg Capsule.) 30 mg PO DAILY [facility] Last Admin: 10/18/22 09:10 Dose: 30 mg Documented By: OLIVIER Furosemide (Furosemide 40 Mg/4 Ml Vial) 40 mg IVPUSH DAILY [facility]; Protocol Last Admin: 10/18/22 09:10 Dose: 40 mg Documented By: OLIVIER Gabapentin (Gabapentin 300 Mg Capsule) 300 mg PO BEDTIME [facility] Last Admin: 10/17/22 23:58 Dose: 300 mg Documented By: GENE Glucose (Glucose Gel 15 Gm Gel..Gram.) 15 gm PO Q15M PRN; Protocol PRN Reason: per Hypoglycemia Standing Ord. Ceftriaxone Sodium 1 gm/ (Sodium Chloride) 50 mls @ 100 mls/hr IV BEDTIME [facility] Last Infusion: 10/18/22 00:47 Dose: 0 mls/hr Documented By: GENE Insulin Human Lispro (Insulin Lispro 100 Unit/Ml 3 Ml Vial) 0 unit SUBCUT QIDACHS [facility]; Protocol Last Admin: 10/18/22 11:40 Dose: Not Given Documented By: OLIVIER Non-Admin Reason: No Insulin Coverage Metoprolol Succinate (Metoprolol Succinate Er 25 Mg Tab.Er.24h) 25 mg PO DAILY [facility]; Protocol Last Admin: 10/18/22 04:43 Dose: 25 mg Documented By: COSME Mirtazapine (Mirtazapine 7.5 Mg Tablet) 7.5 mg PO BEDTIME [facility] Last Admin: 10/17/22 23:59 Dose: 7.5 mg Documented By: GENE Omeprazole (Omeprazole 40 Mg Capsule.) 40 mg PO DAILY [facility] Last Admin: 10/18/22 09:10 Dose: 40 mg Documented By: OLIVIER Ondansetron HCl (Ondansetron Hcl 4 Mg/2 Ml Vial) 4 mg IVPUSH Q8H PRN PRN Reason: Nausea and Vomiting Sodium Chloride (0.9 % Sodium Chloride Flush 3 Ml Syringe) 3 ml IVFLUSH QSHIFT [facility] Last Admin: 10/18/22 09:10 Dose: 3 ml Documented By: OLIVIER Labs 10/17/22 19:51 10/18/22 08:38 Labs: Laboratory Results - last 24 hr 10/17/22 10/17/22 10/17/22 19:51 19:51 19:51 MCV 92.4 MCH 30.9 MCHC 33.4 RDW 16.4 H Plt Count 315 MPV 9.0 L Immature Gran % (Auto) 0.2 Neut % (Auto) 61.5 Lymph % (Auto) 23.2 [place] % (Auto) 8.8 Eos % (Auto) 5.2 H Baso % (Auto) 1.1 Lymph # (Auto) 1.9 [place] # (Auto) 0.7 Eos # (Auto) 0.4 Baso # (Auto) 0.1 Abs Immat Gran (auto) 0.02 Absolute Neuts (auto) 5.1 Absolute Nucleated RBC 0.000 Nucleated RBC % (auto) 0.0 PT INR Anion Gap 15 Estim Creat Clear Calc 44.6 Estimated GFR 49 POC Glucose Random Glucose 79 Calcium 8.7 D Magnesium 1.8 Total Bilirubin 0.6 AST 50 H D ALT 30 Alkaline Phosphatase 193 H Troponin I High Sens 21.3 B-Natriuretic Peptide Total Protein 6.0 L Albumin 3.2 L Urine Color Urine Appearance Urine pH Ur Specific [place] Urine Protein Urine Glucose (UA) Urine Ketones Urine Blood Urine Nitrite Ur Leukocyte Esterase Urine RBC Urine WBC Ur Squamous Epith Cells Urine Bacteria Hyaline Casts COVID-19 ([facility]) COVID-19 Clin Com 10/17/22 10/17/22 10/17/22 19:51 19:51 19:51 MCV MCH MCHC RDW Plt Count MPV Immature Gran % (Auto) Neut % (Auto) Lymph % (Auto) [place] % (Auto) Eos % (Auto) Baso % (Auto) Lymph # (Auto) [place] # (Auto) Eos # (Auto) Baso # (Auto) Abs Immat Gran (auto) Absolute Neuts (auto) Absolute Nucleated RBC Nucleated RBC % (auto) PT 13.0 INR 1.1 Anion Gap Estim Creat Clear Calc Estimated GFR POC Glucose Random Glucose Calcium Magnesium Total Bilirubin AST ALT Alkaline Phosphatase Troponin I High Sens B-Natriuretic Peptide 715 H Total Protein Albumin Urine Color Urine Appearance Urine pH Ur Specific [place] Urine Protein Urine Glucose (UA) Urine Ketones Urine Blood Urine Nitrite Ur Leukocyte Esterase Urine RBC Urine WBC Ur Squamous Epith Cells Urine Bacteria Hyaline Casts COVID-19 ([facility]) Negative COVID-19 Clin Com See Note 10/17/22 10/18/22 10/18/22 21:50 08:01 08:38 MCV MCH MCHC RDW Plt Count MPV Immature Gran % (Auto) Neut % (Auto) Lymph % (Auto) [place] % (Auto) Eos % (Auto) Baso % (Auto) Lymph # (Auto) [place] # (Auto) Eos # (Auto) Baso # (Auto) Abs Immat Gran (auto) Absolute Neuts (auto) Absolute Nucleated RBC Nucleated RBC % (auto) PT INR Anion Gap 13 Estim Creat Clear Calc 37.1 Estimated GFR 58 POC Glucose 70 Random Glucose 68 Calcium 8.5 Magnesium Total Bilirubin 0.8 AST 53 H ALT 28 Alkaline Phosphatase 189 H Troponin I High Sens B-Natriuretic Peptide Total Protein 5.6 L Albumin 2.9 L Urine Color Yellow Urine Appearance Cloudy Urine pH 5.5 Ur Specific [place] 1.020 Urine Protein Negative Urine Glucose (UA) Negative Urine Ketones Negative Urine Blood Large (3+) H Urine Nitrite Negative Ur Leukocyte Esterase Moderate (2+) H Urine RBC >20 H Urine WBC 21-50 H Ur Squamous Epith Cells 0-2 Urine Bacteria Trace Hyaline Casts 6-10 COVID-19 ([facility]) [email or web address] 10/18/22 10/18/22 11:28 12:30 MCV MCH MCHC RDW Plt Count MPV Immature Gran % (Auto) Neut % (Auto) Lymph % (Auto) [place] % (Auto) Eos % (Auto) Baso % (Auto) Lymph # (Auto) [place] # (Auto) Eos # (Auto) Baso # (Auto) Abs Immat Gran (auto) Absolute Neuts (auto) Absolute Nucleated RBC Nucleated RBC % (auto) PT INR Anion Gap Estim Creat Clear Calc Estimated GFR POC Glucose 63 139 H Random Glucose Calcium Magnesium Total Bilirubin AST ALT Alkaline Phosphatase Troponin I High Sens B-Natriuretic Peptide Total Protein Albumin Urine Color Urine Appearance Urine pH Ur Specific [place] Urine Protein Urine Glucose (UA) Urine Ketones Urine Blood Urine Nitrite Ur Leukocyte Esterase Urine RBC Urine WBC Ur Squamous Epith Cells Urine Bacteria Hyaline Casts COVID-19 ([facility]) [employer] Com Microbiology Microbiology Results: Microbiology 10/17/22 Unknown Urine Culture - Preliminary Urine Catheterized - Downs Catheter Culture too young to evaluate. Assessment and Plan (1) Atrial flutter with rapid ventricular response: Status: Acute (2) CHF (congestive heart failure): Status: Acute Plan 87-year-old male with past medical history of paroxysmal AFib presents to the hospital found to have AFib/aflutter with RVR #? AFib/a flutter with RVR -? possibly secondary to CHF versus UTI -? treated with IV metoprolol as well as digoxin with improvement his heart rate -? discussed with Cardiology, resume home metoprolol, hold diltiazem,started digoxin -? echocardiogram -? telemetry - Continue elquis #? acute CHF exacerbation -? patient has no clinical evidence of volume overload but has pleural effusion on chest x-ray as well as elevated BNP iv furosemide -? strict I&O: neg 2.1 liter, daily weight, low-sodium? diet -? cardiology on consult #? diabetes -? low-dose sliding scale insulin -? diabetic diet DVT ppx: eliquis given pt need for monitoring of CHF as well as rapid A fib/flutter?. above is d/w cardiology and further discussed with the family-son Mr Donahue. Family says that they discussed earlier with the patient and patient wants to be DNR DNI, family also want defer for cardioversion. if patient condition worsen please Mr Donahue: [phone]. Ongoing hospitlisation need:AFib/a flutter with RVR,chf excerebation-need iv diuresis ,afib -bb/digoxin Time Spent With Patient Time: Total time managing care of this patient today ____ minutes. Quality Stroke Does the patient have a stroke diagnosis?: No VTE Prior VTE?: No VTE Risk Level:: Medical - moderate - high VTE Device Contraindication: Treatment Not Indicated VTE Drug Contraindication: N/A - Med Ordered
[2022-10-18 15:35] LABS: Glucose, Whole Blood 118 mg/dL (60-115)
[2022-10-18] MEDS: Digoxin 0.5 MG/2 ML AMPUL 0.25 MG IVPUSH ×2 (17:02→22:47)
--- NOTE | 2022-10-18 18:09 | PC.NURSE ---
Report received from overnight RN, naval special warfare medic per DEC. Pt high fall risk, safety precautions in place. Bed alarm on, call abraham within reach. Pt noted to have rate change on tele monitor, sustaining HR of 120-130s. notified, new order for IV digoxin admin per DEC. HR continues to sustain 120s-130s after medication administration, notified.
[2022-10-18 20:16] LABS: Glucose, Whole Blood 115 mg/dL (60-115)
[2022-10-18] MEDS: cefTRIAXone sodium 1 GM in 0.9 % Sodium Chloride 50 ML IV (20:51)
[2022-10-18] MEDS: Mirtazapine 7.5 MG TABLET PO (20:51)
[2022-10-18] MEDS: Gabapentin 300 MG CAPSULE PO (20:51)
[2022-10-19 03:17] VITALS: BP 132/66; PULSE 67; RESP 20; TEMP 36.3; O2SAT 94
[2022-10-19 05:45] VITALS: BMI 30.9
[2022-10-19 07:30] LABS: Glucose, Whole Blood 93 mg/dL (60-115)
[2022-10-19 08:00] VITALS: BP 134/63; PULSE 73; RESP 18; TEMP 36.3; O2SAT 92
[2022-10-19 09:08] LABS: B Type Natriuretic Peptide 390 pg/mL (<100)
[2022-10-19 09:29] LABS: Anion Gap 13 (12-20); Blood Urea Nitrogen 18 mg/dL (9-16); Calcium 8.2 mg/dL (8.4-10.2); Carbon Dioxide 23 mmol/L (22-29); Chloride 108 mmol/L (96-108); Estimated Glomerular Filt Rate 52; Glucose Random 74 mg/dL (60-115); Potassium 4.4 mmol/L (3.3-5.1); Sodium 140 mmol/L (135-145)
[2022-10-19] MEDS: Metoprolol Succinate ER 25 MG TAB.ER.24H PO (09:38)
[2022-10-19] MEDS: Atorvastatin Calcium 40 MG TABLET PO (09:38)
[2022-10-19] MEDS: Apixaban 5 MG TABLET PO (09:38)
[2022-10-19] MEDS: Furosemide 40 MG/4 ML VIAL IVPUSH (09:38)
[2022-10-19] MEDS: 0.9 % Sodium Chloride Flush 3 ML SYRINGE IVFLUSH ×2 (09:38→15:17)
[2022-10-19] MEDS: Aspirin Enteric Coated 81 MG TABLET.DR PO (09:38)
[2022-10-19] MEDS: DULoxetine HCl 30 MG CAPSULE.DR PO (09:38)
[2022-10-19] MEDS: Omeprazole 40 MG CAPSULE.DR PO (09:57)
--- NOTE | 2022-10-19 10:45 | PM.PNCARD ---
Subjective Subjective Date of Service: 10/19/22 Interval history: Seen and examined at bedside. Denying any symptoms. HR better controlled. Physical Exam Vital Signs: Last Vital Signs Temp 97.4 F 10/19/22 08:00 Pulse 73 10/19/22 08:00 Resp 18 10/19/22 08:00 BP 134/63 10/19/22 08:00 Pulse Ox 92 10/19/22 08:00 O2 Del Method 10/19/22 08:00 BMI result Body Mass Index 30.9 GENERAL APPEARANCE: in no acute distress. Lying flat in bed. NECK: no carotid bruit, no significant jugular venous distention. SKIN: no suspicious lesions, warm and dry. HEART: no murmurs, irregular rate and rhythm. LUNGS: Clear to auscultation. ABDOMEN: soft, nontender. EXTREMITIES: Bilateral below-knee amputation. Objective Labs and Meds 10/17/22 19:51 10/19/22 08:27 Lab results: Laboratory Results - last 24 hr 10/18/22 10/18/22 10/18/22 11:28 12:30 15:32 Sodium Potassium Chloride Carbon Dioxide Anion Gap BUN Creatinine Estim Creat Clear Calc Estimated GFR POC Glucose 63 139 H 118 H Random Glucose Calcium B-Natriuretic Peptide 10/18/22 10/19/22 10/19/22 20:09 07:25 08:27 Sodium 140 Potassium 4.4 Chloride 108 Carbon Dioxide 23 Anion Gap 13 BUN 18 H Creatinine 1.32 Estim Creat Clear Calc 34.0 Estimated GFR 52 POC Glucose 115 93 Random Glucose 74 Calcium 8.2 L B-Natriuretic Peptide 10/19/22 08:27 Sodium Potassium Chloride Carbon Dioxide Anion Gap BUN Creatinine Estim Creat Clear Calc Estimated GFR POC Glucose Random Glucose Calcium B-Natriuretic Peptide 390 H Progress Note: A&P Assessment and plan (1) Atrial flutter with rapid ventricular response: Status: Acute (2) CHF (congestive heart failure): Status: Acute (3) Cardiomyopathy: Status: Acute Plan [age] gentleman presenting with atrial flutter and congestive heart failure. Echocardiography is showing EF of 25-30%. He is significantly frail and has bilateral below-knee amputations. Denying any symptoms currently. Heart rate is well controlled after loading with digoxin. Continue beta-raquel and digoxin 125 mcg every other day. Stop the Cardizem on discharge. Adding lisinopril 2.5 mg once a day. Can be transition back to oral diuretics. I think given his significant frailty and comorbidities it is better to manage him conservatively rather than doing cardioversion. I have discussed that with the patient. Signing off. Thank you for allowing me to participate in the care of your patient. Please feel free to contact me if you have any questions. Time Spent With Patient Time: Total time managing care of this patient today ____ minutes. Progress Note: Quality Stroke Does the patient have a stroke diagnosis?: No Procedures Date of Service Date of Service: 10/19/22
[2022-10-19 11:26] LABS: Glucose, Whole Blood 69 mg/dL (60-115)
--- NOTE | 2022-10-19 11:37 | PC.NURSE ---
Addendum entered by Queta Walls RN 10/19/22 12:10: POC recheck 82. Original Note: POC 69. 15 grams of carbs given. Will recheck POC per protocol.
[2022-10-19 12:00] VITALS: BP 135/68; PULSE 70; RESP 18; TEMP 36.7; O2SAT 95
[2022-10-19 12:10] LABS: Glucose, Whole Blood 82 mg/dL (60-115)
[2022-10-19] MEDS: lisinopriL 2.5 MG TABLET PO (13:26)
[2022-10-19 13:28] VITALS: BP 103/60; PULSE 70
--- NOTE | 2022-10-19 14:51 | PM.DS ---
DS: Providers Provider Date of Service: 10/19/22 Date of admission: 10/17/22 23:09 Primary care physician: Wagner Arguelles MD Consults: 10/18/22 09:01 Consult to Cardiology Routine Consulting Provider: Juan Alcaraz Reason for consultation: chf/afib Has provider been notified: No DS: Diagnosis Discharge Diagnosis (1) Atrial flutter with rapid ventricular response: Status: Acute (2) CHF (congestive heart failure): Status: Acute (3) Cardiomyopathy: Status: Acute (4) UTI (urinary tract infection): Status: Acute (5) Overweight: Status: Acute DS: Summary Hospital Course Hospital Course: 87-year-old male with past medical history of CHF, HTN, HLD,? 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 visiting nurse? noted him to have low blood pressure in a fast heart rate.? 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 and no urinary symptoms as he has a Downs catheter in place. On arrival to the ED patient was noted to have a heart rate in the 130s.? He was found to be in a flutter AFib with RVR Labs are significant for? troponin of 21, BNP of 715.? UA positive patient initially given IV metoprolol with drop in his? BP, he is on home Cardizem of 240 mg ?IV digoxin was given to the patient with improvement his heart rate ?spoke to Cardiology, patient given his home metoprolol ?BP stable. Hopsital course: Patient was admitted to the hospital because of afib ,chf ( cardiomyopathy)excerebation and also possible urinary infection: Patient was started on iv Cardizem initially but his heart function on echo was 25-30% so Cardizem discontinued and started on IV diltiazem in addition to metoprolol-heart rate seems to be improved subsequently switched to p.o. digoxin and continued metoprolol. CHF says seems to be improved with IV diuretics , also received IV antibiotics for urinary tract infection: Patient diuresed well as well as heart rate seems to be improved on digoxin/bb. Discussed with the Cardiology: Recommended to send him home withdigoxin/bb/lisnopriland Lasix. Stop aspirin since patient is on Eliquis. Echo was also done EF is only 25-30%. Patient is to follow-up with Cardiology outpatient. CHF education given-call pcp if weight [id number] /week or edema. in addition possible uti - urine cultures are preliminaries pending , no leukocytosis or fever or any new symptoms so patient switched p.o. antibiotics. Also patient is on Bactrim 1 tablet Q monthly unclear why-spoke to patient's son that discussed with PCP whether Bactrim in his medication list is by error. Overweight: Advised to lose weight. Plan: Continue Lasix which is adjusted to 40 mg, also digoxin 0.125 mg every other day, continue metoprolol. lisinopril also added. Monitor renal function electrolytes as well as digoxin and tsh level out patiently. Complete course of p.o. antibiotics Daily weight monitor. CHF education given-call pcp if weight [id number] /week or edema. Patient is to follow up outpatient with Cardiology and PCP. Cardiology may arrange their own appointment Above management discussed with the family in detail length with patient son Godfrey. Time Spent with Patient Time attestation: Total time managing care of this patient today ____ minutes. Discharge coordination time: Greater than 30 minutes Quality: Safe Use of Opioids Does Pt have an Active Cancer Diagnosis on the Problem List?: No Quality: Stroke Does the patient have a stroke diagnosis?: No Physical Exam Vital Signs: Vital Signs: Last Vital Signs Temp 98.0 F 10/19/22 12:00 Pulse 70 10/19/22 13:28 Resp 18 10/19/22 12:00 BP 103/60 10/19/22 13:28 Pulse Ox 95 10/19/22 12:00 O2 Del Method 10/19/22 12:00 BMI result Body Mass Index 30.9 Appearance: Alert.? Oriented X3.? not in distress. cvs: irregular rythem, [id number] ,no jvd. res: clear to auscultation ,no rhonchii or wheezing abd: no rebound or guarding ,nt, bs present. ext pulses present , no cyanosis ,no edema . neuro: axo3 , nonfocal DS: Data Data Completed and Pending Labs on day of discharge: Laboratory Results - last 24 hr 10/18/22 10/18/22 10/19/22 15:32 20:09 07:25 Sodium Potassium Chloride Carbon Dioxide Anion Gap BUN Creatinine Estim Creat Clear Calc Estimated GFR POC Glucose 118 H 115 93 Random Glucose Calcium B-Natriuretic Peptide 10/19/22 10/19/22 10/19/22 08:27 08:27 11:22 Sodium 140 Potassium 4.4 Chloride 108 Carbon Dioxide 23 Anion Gap 13 BUN 18 H Creatinine 1.32 Estim Creat Clear Calc 34.0 Estimated GFR 52 POC Glucose 69 Random Glucose 74 Calcium 8.2 L B-Natriuretic Peptide 390 H 10/19/22 12:07 Sodium Potassium Chloride Carbon Dioxide Anion Gap BUN Creatinine Estim Creat Clear Calc Estimated GFR POC Glucose 82 Random Glucose Calcium B-Natriuretic Peptide Preliminary micro results at discharge 10/17/22 Unknown Urine Culture - Preliminary Urine Catheterized - Downs Catheter Culture in progress. Imaging Chest x-ray: Radiologist's impression: ITS Impressions Chest X-Ray 10/17/22 20:35 IMPRESSION: Persistent right pleural effusion and right basilar atelectasis. No significant change since prior chest x-ray 08/16/2022. echo: Conclusions: - Normal left ventricular cavity size.? There is mildly increased left ventricular wall thickness.? The left ventricular systolic? function is moderate to severely decreased.? The visually? estimated ejection fraction is between 25-30%. ? - Normal right ventricular cavity size.? There is mildly ? decreased right ventricular systolic function. ? - There is moderate aortic valve stenosis.? The peak aortic? ? ? velocity is 1.23 m/s.? The mean gradient is 4 mmHg.? The aortic? valve area is 1.19 cm2.? Discharge Plan Discharge Anticipated Discharge Date/Time: 10/19/22 14:26 Patient Disposition: Home Health Service Discharge Diagnosis: afib , chf,uti Referrals: Wagner Arguelles MD [Primary Care Provider] - 1 Week Discharge Medications: New lisinopril 2.5 mg tablet 2.5 mg PO DAILY Qty: 30 0RF cefuroxime axetil 250 mg tablet 250 mg PO Q12H Qty: 10 0RF digoxin 125 mcg (0.125 mg) Tablet 0.125 mg PO Q2D Qty: 15 0RF Continued (DME) hospital bed Kit See Rx Instructions .Route Qty: 1 0RF Rx Instructions: As directed duloxetine 30 mg capsule,delayed release(DR/EC) 1 cap PO QAM docusate sodium [Colace] 100 mg Capsule 100 mg PO DAILY PRN (Reason: Constipation) metoprolol succinate 25 mg tablet extended release 24 hr 1 tab PO DAILY dexlansoprazole 60 mg Capsule,Biphase Delayed Releas 60 mg PO DAILY gabapentin 100 mg capsule 300 mg PO BEDTIME mirtazapine 7.5 mg tablet 7.5 mg PO BEDTIME 30 Days Qty: 30 3RF atorvastatin 40 mg tablet 40 mg PO DAILY 90 Days Qty: 90 1RF Eliquis 5 mg tablet 5 mg PO BID Qty: 180 3RF (DME) [employer] Urinary Drain Bag 2,000 mL misc See Rx Instructions .MEDSUPPLY Qty: 1 11RF Rx Instructions: As directed Changed furosemide [Lasix] 20 mg tablet 40 mg PO DAILY 30 Days Qty: 60 3RF Held sulfamethoxazole-trimethoprim 800-160 mg tablet 1 tab PO QMONTH Hold Instructions: Resume on 12/05/22. please check with pcp before using it Rx Instructions: Take 1 tablet on the morning of SP Tube changes Discontinued diltiazem HCl [Cardizem CD] 240 mg capsule,extended release 24hr 240 mg PO DAILY 90 Days Qty: 90 1RF aspirin 81 mg tablet,delayed release (DR/EC) 81 mg PO DAILY 90 Days Qty: 90 1RF Discharge Orders: Discharge Order (Routine); Ordered 10/19/22 Ordered By: Duc Red Diet: Advance to usual diet Activity on Discharge: As tolerated Stand Alone Forms: Patient Portal Discharge page Other Ambulatory Orders: Basic Metabolic Panel (Routine) Timeframe: 1 Week Facility: [facility] - Location: Laboratory Ordered By: Duc Red Digoxin (Routine) Timeframe: 1 Week Facility: [facility] - Location: Laboratory Ordered By: Duc Red Thyroid Stimulating Hormone (Routine) Timeframe: 1 Week Facility: [facility] - Location: Laboratory Ordered By: Duc Red Care Plan Goals: Patient was admitted to the hospital because of irregular heartbeat, heart failure and he urinary infection: Patient was started on heart rate control medications, IV diuretics for heart failure, IV antibiotics for urinary tract infection: Patient diuresed well as well as heart rate is also well controlled with medications, urine cultures are preliminaries pending , no leukocytosis or fever or any new symptoms so patient will be going with p.o. antibiotics. Discussed with the Cardiology: Recommended to send him home with heart rate control medications and Lasix. Patient is to follow-up with Cardiology outpatient. CHF education given-call you doctor if weight [id number] /week or edema. Above management discussed with the family in detail length. Health Concerns: As above. Plan of Treatment: As above. Assessment: As above.
[2022-10-19 16:18] LABS: Glucose, Whole Blood 105 mg/dL (60-115)
== END 2022-10-19 17:42 | disposition home health service (06) | DRG 292 ==
LOC: HO.ED 19:16 → HO.EDOVER 23:13 → HO.IMC 10-18 05:09
PROVIDERS: Admitting Provider Internal Medicine; Emergency Provider Internal Medicine; PCP Internal Medicine; Visit Provider Internal Medicine
DX: I11.0 Hypertensive heart disease with heart failure (principal); I48.92 Unspecified atrial flutter; I25.10 Atherosclerotic heart disease of native coronary artery without angina pectoris; Z66 Do not resuscitate; K21.9 Gastro-esophageal reflux disease without esophagitis; I42.9 Cardiomyopathy, unspecified; E78.00 Pure hypercholesterolemia, unspecified; N40.1 Benign prostatic hyperplasia with lower urinary tract symptoms; I35.0 Nonrheumatic aortic (valve) stenosis; I50.9 Heart failure, unspecified; E66.3 Overweight; E11.51 Type 2 diabetes mellitus with diabetic peripheral angiopathy without gangrene; I95.9 Hypotension, unspecified; Z68.31 Body mass index [BMI] 31.0-31.9, adult; R33.8 Other retention of urine; Z20.822 Contact with and (suspected) exposure to COVID-19; Z89.512 Acquired absence of left leg below knee; Z89.511 Acquired absence of right leg below knee; Z79.01 Long term (current) use of anticoagulants; Z79.899 Other long term (current) drug therapy
CPT/HCPCS: 36415; 71045; 80048; 80053; 81001; 82947; 83735; 83880; 84484; 85025; 85610; 87086; 87635; 93005; 93306; 99285; J0696; J1160; J1940; Q9957

== ENCOUNTER 2022-11-13 12:44 | Outpatient (REF) | payer MEDICARE, MEDICAID, SELFPAY ==
[2022-11-13 13:08] LABS: MANUAL DIFF FLAG NO
[2022-11-13 14:26] LABS: Basophils Absolute Auto 0.1 X10*3/uL (0.0-0.2); Basophils Percent Auto 1.4 % (0-2); Eosinophils Absolute Auto 0.2 X10*3/uL (0.0-0.4); Eosinophils Percent Auto 2.2 % (0-4); Hematocrit 41.7 % (42.0-52.0); Hemoglobin 13.6 g/dl (14.0-18.0); Imm Gran Abs Auto 0.04 X10*3/uL (0.00-0.03); Imm Gran Pct Auto 0.4 % (0.0-0.4); Lymphocytes Absolute Auto 2.7 X10*3/uL (1.2-4.9); Lymphocytes Percent Auto 28.1 % (20-40); Mean Corpuscular HGB Conc 32.6 g/dl (31.0-36.0); Mean Corpuscular Hemoglobin 30.6 pg (27.0-33.0); Mean Corpuscular Volume 93.9 fL (80.0-98.0); Mean Platelet Volume 9.1 fL (9.4-12.4); Monocytes Absolute Auto 0.9 X10*3/uL (0.1-1.2); Monocytes Percent Auto 9.6 % (2-11); Neutrophils Absolute Auto 5.7 x10*3/uL (2.0-8.3); Neutrophils Percent Auto 58.3 % (45-73); Platelet Count 360 X10*3/uL (160-400); Red Blood Count 4.44 X10*6/uL (4.60-5.80); Red Cell Distribution Width 17.2 % (11.0-16.0); White Blood Count 9.7 X10*3/uL (4.8-10.8)
[2022-11-13 14:49] LABS: Appearance Urine Turbid; Color Urine Dark Yellow; Glucose Urine UA Negative (Negative); Leukocyte Esterase Urine Large (3+) (Negative); Nitrite Urine Negative (Negative); PH 5.5 (5.0-9.0); UMIC TRIGGER UACC YES; Urine Blood Negative (Negative); Urine Ketones Negative (Negative); Urine Protein Negative (Neg-Trace)
[2022-11-13 14:59] LABS: Alanine Aminotransferase 17 U/L (0-40); Alkaline Phosphatase 276 U/L (39-117); Anion Gap 16 (12-20); Aspartate Amino Transferase 32 U/L (5-37); Bilirubin Total 2.1 mg/dL (0.0-1.0); Blood Urea Nitrogen 26 mg/dL (9-16); Calcium 8.9 mg/dL (8.4-10.2); Carbon Dioxide 25 mmol/L (22-29); Chloride 103 mmol/L (96-108); Cholesterol 152 mg/dL; Estimated Glomerular Filt Rate 49; Glucose Fasting 70 mg/dL (60-99); HDL Cholesterol 23 mg/dL; LDL Cholesterol Calculated 108 mg/dl; Potassium 4.3 mmol/L (3.3-5.1); Sodium 140 mmol/L (135-145); TSH reflex Free T4 1.01 uIU/mL (0.32-4.0); Total Protein 5.9 g/dL (6.5-8.0); Triglycerides 105 mg/dL
[2022-11-13 15:31] LABS: Bacteria Urine 4+ (None Seen); Hyaline Casts Urine 0-2 /LPF (0-2); RBC Urine >20 /HPF (0-2); Squamous Epithelial Cell Urine 0-2 /HPF (0-2); UACC Culture Trigger YES; WBC Urine >50 /HPF (0-5)
== END 2022-11-13 12:45 | disposition home or self-care (01) ==
LOC: HO.LAB 12:44
PROVIDERS: Internal Medicine; PCP Internal Medicine; Visit Provider Internal Medicine
DX: E78.00 Pure hypercholesterolemia, unspecified (principal); E55.9 Vitamin D deficiency, unspecified; I10 Essential (primary) hypertension
CPT/HCPCS: 36415; 80053; 80061; 81001; 82306; 84443; 85025; 87086; 87088; 87186

== ENCOUNTER → 2022-11-20 11:16 | Outpatient (BNVA) | payer MEDICARE, MEDICAID, SELFPAY | PROVIDERS: PCP Internal Medicine; Visit Provider Internal Medicine | DX: I48.0 Paroxysmal atrial fibrillation (principal); Z51.5 Encounter for palliative care; I25.10 Atherosclerotic heart disease of native coronary artery without angina pectoris | CPT/HCPCS: 93005; 99212 ==